=== PATIENT | female | born 1935 | race Two or more races ===

== ENCOUNTER 2024-06-07 16:51 | Inpatient (IN) | payer MEDICARE, OTHER ==
[~2024-06-07] VITALS: Ht 149.9 cm; Wt 52.3 kg
[2024-06-07 17:02] VITALS: PULSE 80; RESP 22; O2SAT 91
[2024-06-07] MEDS: AZITHROMYCIN 250 MG TAB PO ONE ×2 (17:03→20:00)
[2024-06-07] MEDS: methylPREDNISolone SOD SUCC 125 MG/2 ML VL IV ONE (17:10)
--- NOTE | 2024-06-07 17:29 | ED.PDOC ---
SOB-HPI HPI Comments 89Y F with PMHx dementia presents to ED via EMS for chief complaint SOB and cough. Pt denies chest pain, n/v/d, and fever. Per daughter, SpO2 at home was 74% on RA. 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 Per daughter, pt had a CT done recently that showed scar tissue on bilateral lungs and a mass is one lung. 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 Family History Family History: Unknown Social History Smoker: Non-Smoker Alcohol: Denies ETOH Use Drugs: Denies Drug Use Lives In: Home Constitutional: denies: chills, diaphoresis, fatigue, fever, malaise, sweats, weakness, others EENTM: denies: blurred vision, double vision, ear bleeding, ear discharge, ear drainage, ear pain, ear ringing, eye pain, eye redness, hearing loss, mouth pain, mouth swelling, nasal discharge, nose bleeding, nose congestion, nose pain, photophobia, tearing, throat pain, throat swelling, voice changes, others Respiratory: reports: cough, shortness of breath; denies: hemoptysis, orthopnea, SOB at rest, SOB with excertion, stridor, wheezing, others Cardiovascular: denies: chest pain, dizzy spells, diaphoresis, Dyspnea on exertion, edema, irregular heart beat, left arm pain, lightheadedness, palp itations, PND, syncope, others Gastrointestinal: denies: abdomen distended, abdominal pain, blood streaked bowels, constipated, diarrhea, dysphagia, difficulty swallowing, hematemesis, melena, nausea, poor appetite, poor fluid intake, rectal bleeding, rectal pain, vomiting, others Genitourinary: denies: abnormal vagina bleeding, burning, dyspareunia, dysuria, flank pain, frequency, hematuria, incontinence, pain, , vagina discharge, urgency, others Neurological: denies: dizziness, fainting, headache, left sided numbness, left sided weakness, numbness, paresthesia, pre-existing deficit, right sided numbness, right sided weakness, seizure, speech problems, tingling, tremors, weakness, others Musculoskeletal: denies: back pain, gout, joint pain, joint swelling, muscle pain, muscle stiffness, neck pain, others Integumetry: denies: bruises, change in color, change in hair/nails, dryness, laceration, lesions, lumps, rash, wounds, others Allergic/Immunocompromised: denies: Difficulty Healing, Frequent Infections, Hives, Itching, others Hematologic/Lymphatic: denies: anemia, blood clots, easy bleeding, easy br uising, swollen glands, others Endocrine: denies: excessive hunger, excessive sweating, excessive thirst, excessive urination, flushing, intolerance to cold, intolerance to heat, unexplained weight gain, unexplained weight loss, others Psychiatric: denies: anxiety, bipolar disorder, depression, hopeless, panic disorder, schizophrenia, sleepless, suicidal, others All Other Systems: Reviewed and Negative Physical Exam General Appearance: Moderate Distress HEENT: Normal ENT Inspection, Pharynx Normal, TMs Normal Neck: Full Range of Motion, Non-Tender, Normal, Normal Inspection Respiratory: Chest Non-Tender, Lungs Clear, Wheezing, Other (course breath sounds bilaterally) Cardiovascular: Tachycardia Breast Exam: Deferred Gastrointestinal: No Organomegaly, Non Tender, No Pulsatile Mass, Normal Bowel Sounds, Soft Genitalia: Deferred Pelvic: Deferred Rectal: Deferred Extremities: No calf tenderness, Normal capillary refill, Normal inspection, Normal range of motion, Non-tender, No pedal edema Musculoskeletal : Apperance: Normal Neurologic: Alert, datapower developer II-XII nml as Tested, No Motor Deficits, Normal Affect, Normal Mood, No Sensory Deficits Cerebellar Function: NOT DONE Reflexes: NOT DONE Skin: Dry, Normal Color, Warm Lymphatic: No Adenopathy Was a procedure done? Was a procedure done?: No Differential Dx Differential Diagnosis: Bronchitis, Pneumonia X-Ray, Labs, Meds, VS Vital Signs Date Time Temp Pulse Resp B/P (MAP) Pulse Ox O2 Delivery O2 Flow Rate FiO2 06/07/24 18:00 139 30 116/80 (92) 91 06/07/24 17:45 97.9 126 28 96/48 (64) 95 06/07/24 17:32 28 88 Simple Mask* 8 60 06/07/24 17:32 88 Simple Mask* 8 60 06/07/24 17:02 80 22 91 Simple Mask* 10 99 06/07/24 17:02 80 22 108/82 (91) 06/07/24 16:51 138 Lab Test 06/07/24 20:55 06/07/24 18:25 06/07/24 17:46 Range/Units Lactic Acid Level 6.0 *H 0.4-2.0 mmol/L Troponin I High Sensitivity 12 10 </=34 ng/L White Blood Count 14.4 H 4.4-10.8 10^3/uL Red Blood Count 3.83 L 4.0-5.20 10^6/uL Hemoglobin 10.6 L 12.2-16.2 g/dL Hematocrit 35.0 L 36.0-46.0 % Mean Corpuscular Volume 91.4 80.0-100.0 fL Mean Corpuscular Hemoglobin 27.5 L 28.0-32.0 pg Mean Corpuscular Hemoglobin Concent 30.2 L 32.0-36.0 g/dL Red Cell Distribution Width 17.2 H 11.8-14.3 % Platelet Count 559 H 140-450 10^3/uL Mean Platelet Volume 8.1 6.9-10.8 fL Neutrophils (%) (Auto) 37.0-80.0 % Lymphocytes (%) (Auto) 10.0-50.0 % Monocytes (%) (Auto) 0.0-12.0 % Basophils (%) (Auto) 0.0-2.0 % Neutrophils # (Auto) 1.6-8.6 10 ^3/uL Lymphocytes # (Auto) 0.4-5.4 10 ^3/uL Monocytes # (Auto) 0-1.3 10 ^3/uL Differential Total Cells Counted 100.0 100 Neutrophils % (Manual) 82 H 37.0-80.0 Band Neutrophils % (Manual) 11 Lymphocytes % (Manual) 3 L 10.0-50.0 Monocytes % (Manual) 4 0-12 Eosinophils % (Manual) 0 0-7 Basophils % (Manual) 0 0.0-2.0 Metamyelocytes % (manual) 0 Myelocytes % (Manual) 0 Promyelocytes % (Manual) 0 Blast Cells % (Manual) 0 Reactive Lymphocytes 0 Platelet Estimate Increased Sodium Level 131 L 136-145 mmol/L Potassium Level 4.7 3.5-5.1 mmol/L Chloride Level 102 98-107 mmol/L Carbon Dioxide Level 14 L 20-31 mmol/L Anion Gap 15 5-15 Blood Urea Nitrogen 27 H 9-23 mg/dL Creatinine 0.93 0.550-1.02 mg/dL Glomerular Filtration Rate Calc 59 >90 mL/min BUN/Creatinine Ratio 29.0 H 10.0-20.0 Serum Glucose 182 H 74-106 mg/dL Calcium Level 9.1 8.7-10.4 mg/dL B-Type Natriuretic Peptide 263.34 0-100 pg/mL SARS-CoV-2 Antigen (Rapid) Negative NEGATIVE Current Medications Medications (Trade) Dose Ordered Sig/Ben Route Start Time Stop Time Status Last Admin Azithromycin (Zithromax Tablet) 500 mg ONCE ONCE PO 06/07/24 17:00 06/07/24 17:34 DC 06/07/24 17:03 Albuterol (Ventolin Medneb) 5 mg ONCE ONCE NEB 06/07/24 17:00 06/07/24 17:01 DC 06/07/24 17:31 Ipratropium [place] (Atrovent Medneb) 0.5 mg ONCE ONCE NEB 06/07/24 17:00 06/07/24 17:01 DC 06/07/24 17:31 Methylprednisolone Sodium Succinate (Solu Medrol) 62.5 mg ONCE ONCE IV 06/07/24 17:00 06/07/24 17:01 DC 06/07/24 17:10 Azithromycin 250 ml @ 125 mls/hr ONCE ONCE IV 06/07/24 17:45 06/07/24 19:44 DC 06/07/24 18:16 Haloperidol Lactate (Haldol) 10 mg ONCE ONCE IM 06/07/24 20:15 06/07/24 20:16 MD 06/07/24 20:[address] [address] Ph: [phone] DIAGNOSTIC IMAGING Diagnostic Imaging Report : [id number] Signed PATIENT: NADJA MARRERO ACCT: [id number] UNIT: [id number] : 1935 LOC: ER ROOM / BED: / AGE / SEX: 89 / F ADM STATUS: REG ER SERVICE 1715 ORDERING PHYSICIAN: ARTI PEÑA MD PROCEDURE(s): CXRP - CHEST PORTABLE REASON: SOB ORDER NUMBER(s): [id number], ACCESSION NUMBER(s): [id number] CHEST RADIOGRAPH Indication: SOB Technique: Single frontal view of the chest was obtained Comparison: None FINDINGS: Lines and Tubes: None Lungs: Diffuse interstitial and alveolar type opacities bilateral lungs. Obscuration of the left hemidiaphragm. No pneumothorax. Cardiomediastinal contours: Unremarkable Bones: No acute osseous abnormality. IMPRESSION: Diffuse interstitial and alveolar type opacities of bilateral lungs which may r epresent multifocal pneumonia possible small left-sided pleural effusion and associated atelectasis. ATED BY: JANE ORTIZ DO DICTATED DATE/TIME: 06/07/241800 SIGNED BY: JANE ORTIZ DO SIGNED DATE/TIME: 06/07/241800 CC: Time of 1ST Reevaluation: 17:42 Reevaluation 1ST: Unchanged Patient Education/Counseling: Diagnosis, Treatment Family Education/Counseling: Diagnosis, Treatment Departure 1 Departure Time of Disposition: 22:20 (Patient with concern for sepsis. Receiving fluids, antibiotics, and will admit for further workup) Impression: Primary Impression: Sepsis Qualified Codes: A41.9 - Sepsis, unspecified organism; R65.21 - Severe sepsis with septic shock; J96.01 - Acute respiratory failure with hypoxia Additional Impressions: Shortness of breath Weakness Disposition: ADMITTED INPATIENT Admit to: Med Surg Condition: Serious Critical Care Note Critical Care Time?: Yes Critical care comment: Concern for sepsis Authorized and Performed by: Arti Peña MD Total critical care time: Approximately 44 minutes Due to a high probability of clinically significant, life threatening deterioration, the patient required my highest level of preparedness to intervene emergently and I personally spent this critical care time directly and personally managing the patient. This critical care time included obtaining a history; examining the patient; pulse oximetry; ordering and review of studies; arranging urgent treatment with development of a management plan; evaluation of patient's response to treatment; frequent reassessment; and, discussions with other providers. This critical care time was performed to assess and manage the high probability of imminent, life-threatening deterioration that could result in multi-organ failure. It was exclusive of separately billable procedures and treating other patients and teaching time. Please see my other sections and the rest of the note for further information on patient assessment and treatment. Stability Stability form required: No Heart Score Heart Score: Heart Score Response (Comments) Value History N/A 0 EKG N/A 0 Age N/A 0 Risk Factors N/A 0 Troponin N/A 0 Total 0 I personally scribed for ARTI PEÑA MD ([facility]) on 06/07/24 at 17:29. Electronically submitted by Savannah Contreras ([email or web address]). I personally scribed for ARTI PEÑA MD ([email or web address]) on 06/07/24 at 19:29. Electronically submitted by Savannah Contreras ([email or web address]). ARTI PEÑA MD Jun 07, 2024 17:29
[2024-06-07] MEDS: IPRATROPIUM BROM 0.5 MG/2.5ML INH SOL NEB ONE ×2 (17:31→22:53)
[2024-06-07] MEDS: ALBUTEROL SULF 2.5 MG/0.5ML(0.5%) NEB SOLN NEB ONE ×2 (17:31→22:53)
--- NOTE | 2024-06-07 18:03 | DVH ---
CHEST RADIOGRAPH Indication: SOB Technique: Single frontal view of the chest was obtained Comparison: None FINDINGS: Lines and Tubes: None Lungs: Diffuse interstitial and alveolar type opacities bilateral lungs. Obscuration of the left hem idiaphragm. No pneumothorax. Cardiomediastinal contours: Unremarkable Bones: No acute osseous abnormality. IMPRESSION: Diffuse interstitial and alveolar type opacities of bilateral lungs which may represent multifocal pn eumonia possible small left-sided pleural effusion and associated atelectasis.
[2024-06-07] MEDS: AZITHROMYCIN 500MG/ 250ML 250 ML IV ONE (18:16)
[2024-06-07 18:31] LABS: COVID19 ANTIGEN SOFIA FIA NEGATIVE (NEGATIVE)
[2024-06-07 19:07] LABS: Hemoglobin 10.6 g/dL (12.2-16.2)
[2024-06-07 19:09] LABS: Mean Corpuscular Hemoglobin 27.5 pg (28.0-32.0); Mean Corpuscular Hgb Conc. 30.2 g/dL (32.0-36.0); Mean Corpuscular Volume 91.4 fL (80.0-100.0); Platelet Count (auto) 559 10^3/uL (140-450); Red Blood Cells 3.83 10^6/uL (4.0-5.20); Red Cell Distribution Width 17.2 % (11.8-14.3); White Blood Cell 14.4 10^3/uL (4.4-10.8)
[2024-06-07 19:13] LABS: Anion Gap 15 (5-15); Basophils % (manual) 0 (0.0-2.0); Blast Cells 0; Chloride 102 mmol/L (98-107); Eosinophils % (manual) 0 (0-7); Metamyelocytes % 0; Myelocytes % 0; Potassium 4.7 mmol/L (3.5-5.1); Promyelocytes % 0; Reactive Lymphocytes 0
[2024-06-07 19:14] LABS: Calcium 9.1 mg/dL (8.7-10.4); Carbon Dioxide 14 mmol/L (20-31); Sodium 131 mmol/L (136-145)
--- NOTE | 2024-06-07 19:15 | ECG ---
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 Low voltage, extremity and precordial leads Minimal ST depression, inferior leads Nonspecific T abnormalities, diffuse leads Artifact in lead(s) I,II,III,aVR,aVL,aVF,V1,V2,V3,V4,V5,V6 Electronically Signed On 06-08-2024 14:16:20 PST by Chadwick Marcus Please click the below link to view image of tracing.
[2024-06-07 19:22] LABS: Blood Urea Nitrogen 27 mg/dL (9-23); Glucose 182 mg/dL (74-106)
[2024-06-07 19:30] VITALS: O2SAT 92
[2024-06-07 19:50] VITALS: O2SAT 92
[2024-06-07] MEDS: CEFEPIME 2GM/50ML NS 50 ML IV ONE (20:00)
[2024-06-07] MEDS: VANCOMYCIN 1GM/250ML KIT 200 ML IV ONE (20:00)
[2024-06-07] MEDS: HALOPERIDOL LACTATE 5 MG/ML INJ VIAL ONE (20:09)
[2024-06-07 20:21] LABS: Band Neutrophils % (manual) 11; Lymphocytes % (manual) 3 (10.0-50.0); Monocytes % (manual) 4 (0-12)
[2024-06-07 20:22] LABS: Platelet Estimate Increased
[2024-06-07] MEDS: HALOPERIDOL LACTATE 5 MG/ML INJ VIAL IM ONE (20:42)
[2024-06-07] MEDS ORDERED: HYDROcodone-ACET 5/325MG TAB PO PRN (23:15)
[2024-06-07] MEDS ORDERED: VANCOMYCIN PER PHARMACY 0 MG IV SCH (23:15)
[2024-06-07] MEDS ORDERED: DOCUSATE SOD 100 MG CAP PO PRN (23:15)
[2024-06-07] MEDS ORDERED: ONDANSETRON HCL 4 MG/2 ML VIAL IV PRN (23:15)
[2024-06-07] MEDS: DOXYCYCLINE 100MG/250ML 250 ML IV SCH (23:15)
[2024-06-07] MEDS ORDERED: MORPHINE SULFATE INJ 2 MG/ml SYRG IV PRN (23:15)
[2024-06-07] MEDS ORDERED: ACETAMINOPHEN 325 MG TAB PO PRN (23:15)
[2024-06-07] MEDS: SODIUM CHLORIDE 0.9% 1,000 ML IV SCH (23:15)
[2024-06-07] MEDS ORDERED: NITROGLYCERIN 0.4 MG SL TAB SL PRN (23:15)
--- NOTE | 2024-06-07 23:22 | DVHHP2 ---
History of Present Illness Reason for Visit: Sepsis, unspecified organism History of Present Illness The patient is a 89-year-old female with past medical history of dementia who presented to [facility] ED with complaint of shortness of breaths. As reported by daughter, patient's symptoms progressively get worse with cough, shortness of breaths at rest, on exertion, hypoxia, O2 saturation at 74% on room air, generalized weakness, getting worse that prompted this visit. Patient is being followed by neurologist and pulmonary at [place]. Patient was seen and evaluated in the ED, laboratory data shows WBC 14.4, hemoglobin 10.6, hematocrit 35.0, platelets 559, sodium 131, potassium 4.7, BUN 27, creatinine 0.93, GFR 59, glucose 182, hemoglobin A1c 5.4, troponin 10, lactic acid 6.0 trending down to 4.0, BNP 263.34, blood pressure 89/54 trending up to 107/64, heart rate 106, temperature 97.9 F, O2 saturation 91% on simple mask. Chest x-ray revealing diffuse interstitial and alveolar type opacities of bilateral lungs which may represent multifocal pneumonia possible small left sided pleural effusion and associated atelectasis. Patient was started on IV antibiotic regimen doxycycline, given breathing treatment, please see medication orders section in the computer. On my assessment, patient remains with, no diaphoresis, no ute rrhea, no nausea, no vomiting, no fever, no chills. Patient was admitted for further evaluation and medical management. Past Medical History Dementia Past Surgical History No surgical history on file Family History Reviewed, noncontributory to the management of this case. Past Social History The patient lives at home, denies smoking, alcohol or illicit drugs abuse. Review of Systems Constitutional: Yes: Weakness; No: Fever, Chills, Sweats, Malaise, Other Eyes: No: Pain, Vision change, Conjunctivae inflammation, Eyelid inflammation, Other, Redness ENT: No: Ear pain, Ear discharge, Nose pain, Nose discharge, Nose congestion, Mouth pain, Mouth swelling, Throat pain, Throat swelling, Other Respiratory: Cough, Shortness of breath, SOB with excertion, Other (SOB at rest); No: Dry, Wheezing, Hemoptysis, Pleuritic Pain, Sputum, Wheezing Cardiovascular: No: Chest Pain, Palpitations, Orthopnea, Paroxysmal Noc. Dyspnea, Edema, Lt Headedness, Other Gastrointestinal: No: Nausea, Vomiting, Abdominal Pain, Diarrhea, Constipation, Melena, Hematochezia, Other Genitourinary: No Dysuria, No Frequency, No Incontinence, No Hematuria, No Retention, No Other Musculoskeletal: No: other, neck pain, shoulder pain, arm pain, back pain, hand pain, leg pain, foot pain Skin: No: Rash, Lesions, Jaundice, Bruising, Other Neurological: No: Weakness, Numbness, Incoordination, Change in speech, Confusion, Seizures, Other Allergies: Coded Allergies: UNOBTAINABLE (Unverified , 06/07/24) Exam Vital Signs Vital Signs Date Time Temp Pulse Resp B/P (MAP) Pulse Ox O2 Delivery O2 Flow Rate FiO2 06/07/24 22:00 106 27 98/56 (70) 94 06/07/24 17:45 97.9 06/07/24 17:32 Simple Mask* 8 60 General Appearance: Alert, Cooperative, No acute distress, Other (Oriented x2) HEENT: Atraumatic, PERRLA, EOMI, Mucous membr. moist/pink Respiratory: Normal air movement, Other (Diminished breath sounds) Cardiovascular: Regular rate, Normal S1, Normal S2, No murmurs Abdominal: Normal bowel sounds, Soft, No tenderness, No hepatospenomegaly, No masses Extremities: No clubbing, No cyanosis, No edema, Normal pulses, No tenderness/swelling Skin: No rashes, No breakdown, No significant lesion Neuro: Normal speech, Normal tone, Sensation intact, Cranial nerves 3-12 NL, Reflexes 2+, Other (Generalized weakness) Psych/Mental Status: Mental status NL, Mood NL Labs/Xrays Labs Test 06/07/24 22:50 06/07/24 18:25 06/07/24 17:46 Range/Units White Blood Count 14.4 H 4.4-10.8 10^3/uL Red Blood Count 3.83 L 4.0-5.20 10^6/uL Hemoglobin 10.6 L 12.2-16.2 g/dL Hematocrit 35.0 L 36.0-46.0 % Mean Corpuscular Volume 91.4 80.0-100.0 fL Mean Corpuscular Hemoglobin 27.5 L 28.0-32.0 pg Mean Corpuscular Hemoglobin Concent 30.2 L 32.0-36.0 g/dL Red Cell Distribution Width 17.2 H 11.8-14.3 % Platelet Count 559 H 140-450 10^3/uL Mean Platelet Volume 8.1 6.9-10.8 fL Neutrophils (%) (Auto) 37.0-80.0 % Lymphocytes (%) (Auto) 10.0-50.0 % Monocytes (%) (Auto) 0.0-12.0 % Basophils (%) (Auto) 0.0-2.0 % Neutrophils # (Auto) 1.6-8.6 10 ^3/uL Lymphocytes # (Auto) 0.4-5.4 10 ^3/uL Monocytes # (Auto) 0-1.3 10 ^3/uL Differential Total Cells Counted 100.0 100 Neutrophils % (Manual) 82 H 37.0-80.0 Band Neutrophils % (Manual) 11 Lymphocytes % (Manual) 3 L 10.0-50.0 Monocytes % (Manual) 4 0-12 Eosinophils % (Manual) 0 0-7 Basophils % (Manual) 0 0.0-2.0 Metamyelocytes % (manual) 0 Myelocytes % (Manual) 0 Promyelocytes % (Manual) 0 Blast Cells % (Manual) 0 Reactive Lymphocytes 0 Platelet Estimate Increased Sodium Level 131 L 136-145 mmol/L Potassium Level 4.7 3.5-5.1 mmol/L Chloride Level 102 98-107 mmol/L Carbon Dioxide Level 14 L 20-31 mmol/L Anion Gap 15 5-15 Blood Urea Nitrogen 27 H 9-23 mg/dL Creatinine 0.93 0.550-1.02 mg/dL Glomerular Filtration Rate Calc 59 >90 mL/min BUN/Creatinine Ratio 29.0 H 10.0-20.0 Serum Glucose 182 H 74-106 mg/dL Calcium Level 9.1 8.7-10.4 mg/dL B-Type Natriuretic Peptide 263.34 0-100 pg/mL SARS-CoV-2 Antigen (Rapid) Negative NEGATIVE PATIENT: NADJA MARRERO ACCT: [id number] UNIT: [id number] : 1935 LOC: ER ROOM / BED: / AGE / SEX: 89 / F ADM STATUS: REG ER SERVICE 6650 ORDERING PHYSICIAN: ARTI HANNA MD PROCEDURE(s): CXRP - CHEST PORTABLE REASON: SOB ORDER NUMBER(s): [id number], ACCESSION NUMBER(s): [id number] CHEST RADIOGRAPH Indication: SOB Technique: Single frontal view of the chest was obtained Comparison: None FINDINGS: Lines and Tubes: None Lungs: Diffuse interstitial and alveolar type opacities bilateral lungs. Obscuration of the left hemidiaphragm. No pneumothorax. Cardiomediastinal contours: Unremarkable Bones: No acute osseous abnormality. IMPRESSION: Diffuse interstitial and alveolar type opacities of bilateral lungs which may represent multifocal pneumonia possible small left-sided pleural effusion and associated atelectasis. Assessment/Plan Assessment/Plan Pneumonia, unspecified organism Sepsis, unspecified organism Severe sepsis with septic shock Generalized weakness Acute respiratory failure with hypoxia Plan 1. Admit to telemetry unit 2. Breathing treatment 3. Pain control management 4. IV antibiotic management 5. Management of fluids and electrolytes 6. Consultation for pulmonology 7. Diagnostic test chest x-ray 8. DVT prophylaxis-on SCDs 9. Repeat labs CBC, CMP in a.m. 10. Continue with current medical management 11. Treatment plan discussed with patient and RN. Patient verbalized understanding. Plan discussed with: Patient, Other (RN) My Orders Orders - YOMI SPAULDING DNP Procedure Category Date Status Time Famotidine Injection PHA 06/08/24 Verified (Pepcid Injection) 10:00 Methylprednisolone PHA 06/08/24 Verified Sod Succ (Solu Medrol 06:00 Albuterol Medneb PHA 06/07/24 Verified (Ventolin Medneb) 23:15 Ipratropium Medneb PHA 06/07/24 Verified (Atrovent Medneb) 23:15 Vancomycin Per PHA 06/07/24 Verified Pharmacy 23:15 Doxycycline PHA 06/07/24 Verified 100mg/250ml 23:15 Hemoglobin A1c LAB 06/07/24 Verified 23:15 *Consult CONS 06/07/24 Verified / 23:15 Type And Screen BBK 06/07/24 Verified 23:15 Admit ADMIT 06/07/24 Verified 23:15 Allergies FRANKY 06/07/24 Verified 23:15 Code Status CODE 06/07/24 Verified 23:15 0.9% Ns 1000 Ml PHA 06/07/24 Verified 23:15 Oxygen Per Hour RT 06/07/24 Verified 23:15 Hydrocodone-Acet PHA 06/07/24 Verified 5/325mg Tab ([place] 23:15 Ondansetron Hcl PHA 06/07/24 Verified (Zofran) 23:15 Docusate Sodium PHA 06/07/24 Verified Capsule (Colace 23:15 Fall Risk Precautions [facility] 06/07/[address] 23:15 Complete Blood Count LAB 06/08/24 Verified 04:00 Comprehensive LAB 06/08/24 Verified Metabolic Panel 04:00 Cardiac DIET 06/08/24 Verified Diet-2gna,Lofat,Lochol Breakfast Echo 2d Mode Cardiac US 06/07/24 Verified DOP 23:15 Condition: Serious FRANKY 06/07/24 Verified 23:15 Acetaminophen Tablet PHA 06/07/24 Verified (Tylenol Tablet) 23:15 Sequential [facility] 06/07/24 Verified Compression Device Nitroglycerin [facility] 06/07/24 Verified Sublingual (Ntrostat 23:15 Morphine Sulfate PHA 06/07/24 Verified Injection 23:15 Notify Md Of Changes [facility] 06/07/24 Verified From Base 23:15 Problem List: (1) Pneumonia, unspecified organism (2) Sepsis, unspecified organism (3) Acute respiratory failure with hypoxia (4) Generalized weakness (5) Severe sepsis with septic shock Date of Service: Jun 07, 2024 Billing Provider: YOMI SPUALDING DNP Common Visit Codes: 58236-YAARTVT INP/OBS CARE (HIGH) YOMI SPAULDING DNP Jun 07, 2024 23:22
[2024-06-08] VITALS (11 sets, daily range): BP systolic 91–107; BP diastolic 50–64; PULSE 79–136; RESP 20–24; O2SAT 88–100
[2024-06-08] MEDS: NOREPINEPHRINE 8 MG/250ML KIT 250 ML IV SCH (01:28)
[2024-06-08] MEDS: SODIUM CHLORIDE 0.9% 2,000 ML IV ONE (03:53)
[2024-06-08 04:37] LABS: Urine Bacteria FEW /hpf (None Seen); Urine Blood 2+ /uL (Negative); Urine Budding Yeast OCCASIONAL /hpf (None Seen); Urine Clarity Clear (Clear); Urine Hyaline Cast FEW /lpf (0 - 2); Urine Mucus FEW (None Seen); Urine Protein, UAD Negative (Negative); Urine Specific Gravity 1.005 (1.001-1.035); Urine Squamous Epithelial Cell FEW /hpf (<5); Urine Urobilinogen Normal (Negative); Urine WBC 3 /hpf (0 - 5); Urine pH 5.5 (5.0-9.0)
[2024-06-08 05:09] LABS: Urine Color STRAW (Yellow)
[2024-06-08] MEDS: methylPREDNISolone SOD SUCC 40 MG/ML VL IV SCH (05:59)
[2024-06-08] MEDS: ALBUTEROL SULF 2.5 MG/0.5ML(0.5%) NEB SOLN NEB PRN (07:13)
[2024-06-08] MEDS: IPRATROPIUM BROM 0.5 MG/2.5ML INH SOL NEB PRN (07:13)
[2024-06-08 07:25] LABS: Alanine Aminotransferase 10 U/L (7-40); Alkaline Phosphatase 101 U/L (46-116); Anion Gap 9 (5-15); Aspartate Aminotransferase 20 U/L (13-40); BUN/Creatinine Ratio 21.3 (10.0-20.0); Blood Urea Nitrogen 16 mg/dL (9-23); Potassium 3.6 mmol/L (3.5-5.1); Sodium 138 mmol/L (136-145)
[2024-06-08 07:29] LABS: Hematocrit 32.4 % (36.0-46.0); Hemoglobin 9.9 g/dL (12.2-16.2); Mean Corpuscular Hgb Conc. 30.5 g/dL (32.0-36.0); Mean Corpuscular Volume 88.6 fL (80.0-100.0); Platelet Count (auto) 516 10^3/uL (140-450); Red Blood Cells 3.66 10^6/uL (4.0-5.20); Red Cell Distribution Width 17.2 % (11.8-14.3)
[2024-06-08 07:31] LABS: Basophils % (manual) 0 (0.0-2.0); Blast Cells 0; Eosinophils % (manual) 0 (0-7); Metamyelocytes % 0; Myelocytes % 0; Promyelocytes % 0; Reactive Lymphocytes 0
[2024-06-08 07:35] LABS: Bilirubin, Total 0.3 mg/dL (0.2-1.0); Calcium 8.7 mg/dL (8.7-10.4); Carbon Dioxide 17 mmol/L (20-31); Chloride 112 mmol/L (98-107); Glucose 177 mg/dL (74-106); Total Protein 5.6 g/dL (5.7-8.2)
[2024-06-08 07:36] LABS: Albumin 2.4 g/dL (3.2-4.8)
[2024-06-08 08:52] LABS: Base Excess -5.1 mmol/L (-2.0-3.0)
[2024-06-08 08:57] LABS: Band Neutrophils % (manual) 2; Lymphocytes % (manual) 12 (10.0-50.0); Monocytes % (manual) 1 (0-12); Platelet Estimate Increased
--- NOTE | 2024-06-08 10:06 | DVHINCON2 ---
Date of service: Jun 07, 2024 Referring Physician ANN Rocha Reason for Consultation Dyspnea History of Present Illness 89-year-old woman history of dementia who presented with a chief complaint of shortness of breath and cough. No nausea, vomiting, diarrhea constipation. No fever or chills. She was found to be hypoxic with a pulse oximetry reading of 74%. Patient follows up with Neurology and pulmonology intolerance. She was seen had a CT chest performed that demonstrated scar tissue in bilateral lungs and AMS in one lung. Pulmonary consultation is called for evaluation of shortness of breath. Review of systems: 14 point review of systems is negative unless otherwise noted above. Past medical history: Dementia, lung mass, lung scarring Past surgical history: None mentioned in prior surgeries. Medications: Reviewed Allergies: Unobtainable. Family history: No family history of premature CAD. No family history of lung disease. Social history: Nonsmoker. No alcohol or illicit drug use. He lives at home. Allergies: Coded Allergies: UNOBTAINABLE (Unverified , 06/07/24) Current Medications Current Medications Medications (Trade) Dose Ordered Sig/Ben Route PRN Reason Start Time Stop Time Status Last Admin Famotidine (Pepcid Injection) 20 mg Q12HR IV 06/08/24 10:00 Methylprednisolone Sodium Succinate (Solu Medrol) 40 mg Q8HR IV 06/08/24 06:00 06/08/24 05:59 Albuterol (Ventolin Medneb) 2.5 mg Q4HPRN PRN NEB SHORTNESS OF BREATH 06/07/24 23:15 06/08/24 07:13 Ipratropium [place] (Atrovent Medneb) 0.5 mg Q4HPRN PRN NEB SHORTNESS OF BREATH 06/07/24 23:15 06/08/24 07:13 Vancomycin HCl 0 ml @ 0 mls/hr UD IV 06/07/24 23:15 Doxycycline Hyclate 250 ml @ 125 mls/hr Q12H IV 06/07/24 23:15 06/07/24 23:15 Sodium Chloride 1,000 ml @ 120 mls/hr Q8H20M IV 06/07/24 23:15 06/08/24 07:43 Acetaminophen/ Hydrocodone Bitart ([place] 5/325MG Tab) 1 tab Q4HP PRN PO MODERATE PAIN (4-6 PAIN SCALE) 06/07/24 23:15 Ondansetron HCl (Zofran) 4 mg Q4HP PRN IV NAUSEA / VOMITING 06/07/24 23:15 Docusate Sodium (Colace Capsule) 100 mg BIDPRN PRN PO FOR CONSTIPATION 06/07/24 23:15 Acetaminophen (Tylenol Tablet) 650 mg Q6HP PRN PO PAIN SCALE 1-3 OR TEMP>100.4 06/07/24 23:15 Nitroglycerin (Ntrostat Sublingual) 0.4 mg Q5MINP PRN SL FOR CHEST PAIN 06/07/24 23:15 Morphine Sulfate 2 mg Q30M PRN IV FOR CHEST PAIN 06/07/24 23:15 Enoxaparin Sodium (Lovenox) 40 mg DAILY SC 06/08/24 10:00 Norepinephrine Bitartrate 250 ml @ 3.75 mls/hr Q24H IV 06/08/24 01:00 06/08/24 01:28 Vancomycin HCl 100 ml @ 200 mls/hr Q12H IV 06/08/24 10:00 Vital Signs Vital Signs Date Time Temp Pulse Resp B/P (MAP) Pulse Ox O2 Delivery O2 Flow Rate FiO2 06/08/24 09:30 112/69 06/08/24 09:30 101 23 06/08/24 09:15 98 06/08/24 08:44 45 06/08/24 07:41 Bi-Pap+ 06/07/24 22:53 12 06/07/24 17:45 97.9 Physical Exam Gen.: Patient lying in bed in no apparent distress. On supplemental oxygen. Head: Normocephalic, atraumatic Eyes: EOMI/PERRLA. Ears: Normal hearing. Normal anatomy. Neck/trachea: Trachea midline, supple. Nose: Normal external anatomy. Mouth: Moist mucous membranes. Chest: Decreased air entry bilaterally. No wheezing . Scattered rhonchi. Cardio vascular: Positive S1, positive S2. Regular rate and rhythm. Abdomen: Positive bowel sounds in all 4 quadrants. Soft, non-tender, non- distended. : Deferred. Rectal: Deferred Skin: Warm, dry. Extremities: 2+ radial pulses bilaterally. No lower extremity edema. Neuro: Awake, alert. No gross motor or sensory deficits. Cranial nerves II through XII intact. Gait not assessed. Labs/Diagnostic Data Labs Test 06/08/24 08:43 06/08/24 06:27 06/08/24 03:50 06/07/24 23:36 Range/Units Blood Gas Specimen Type Arterial Blood Gas Sample Site Left radial Blood Gas Patient Temperature 37.0 Arterial Blood Date Drawn [id number] Arterial Blood pH 7.441 7.350-7.450 Arterial Blood Partial Pressure CO2 26.9 L 32.0-45.0 mmHg Arterial Blood Partial Pressure O2 70.7 L 83.0-108.0 mmHg Arterial Blood HCO3 17.9 L 21.0-28.0 mmol/L Arterial Blood Oxygen Saturation 94.0 94.0-98.0 % Arterial Blood Base Excess -5.1 L -2.0-3.0 mmol/L Arterial Blood Oxyhemoglobin 93.3 L 94.0-98.0 % Arterial Blood Carboxyhemoglobin 0.2 L 0.5-1.5 % Arterial Blood Methemoglobin 0.5 0.0-1.5 % Robbin Test Yes Blood Gas Total Hemoglobin 10.30 L 12.0-16.0 g/dL Blood Gas Modality Mask - bipap FiO2 % 45.0 White Blood Count 16.0 H 4.4-10.8 10^3/uL Red Blood Count 3.66 L 4.0-5.20 10^6/uL Hemoglobin 9.9 L 12.2-16.2 g/dL Hematocrit 32.4 L 36.0-46.0 % Mean Corpuscular Volume 88.6 80.0-100.0 fL Mean Corpuscular Hemoglobin 27.0 L 28.0-32.0 pg Mean Corpuscular Hemoglobin Concent 30.5 L 32.0-36.0 g/dL Red Cell Distribution Width 17.2 H 11.8-14.3 % Platelet Count 516 H 140-450 10^3/uL Mean Platelet Volume 8.1 6.9-10.8 fL Neutrophils (%) (Auto) 37.0-80.0 % Lymphocytes (%) (Auto) 10.0-50.0 % Monocytes (%) (Auto) 0.0-12.0 % Basophils (%) (Auto) 0.0-2.0 % Neutrophils # (Auto) 1.6-8.6 10 ^3/uL Lymphocytes # (Auto) 0.4-5.4 10 ^3/uL Monocytes # (Auto) 0-1.3 10 ^3/uL Differential Total Cells Counted 100.0 100 Neutrophils % (Manual) 85 H 37.0-80.0 Band Neutrophils % (Manual) 2 Lymphocytes % (Manual) 12 10.0-50.0 Monocytes % (Manual) 1 0-12 Eosinophils % (Manual) 0 0-7 Basophils % (Manual) 0 0.0-2.0 Metamyelocytes % (manual) 0 Myelocytes % (Manual) 0 Promyelocytes % (Manual) 0 Blast Cells % (Manual) 0 Reactive Lymphocytes 0 Platelet Estimate Increased Sodium Level 138 # 136-145 mmol/L Potassium Level 3.6 3.5-5.1 mmol/L Chloride Level 112 #H 98-107 mmol/L Carbon Dioxide Level 17 L 20-31 mmol/L Anion Gap 9 5-15 Blood Urea Nitrogen 16 # 9-23 mg/dL Creatinine 0.75 0.550-1.02 mg/dL Glomerular Filtration Rate Calc 77 >90 mL/min BUN/Creatinine Ratio 21.3 H 10.0-20.0 Serum Glucose 177 H 74-106 mg/dL Calcium Level 8.7 8.7-10.4 mg/dL Total Bilirubin 0.3 0.2-1.0 mg/dL Aspartate Amino Transferase (AST) 20 13-40 U/L Alanine Aminotransferase (ALT) 10 7-40 U/L Alkaline Phosphatase 101 46-116 U/L Total Protein 5.6 L 5.7-8.2 g/dL Albumin 2.4 L 3.2-4.8 g/dL Urine Color Straw Yellow Urine Clarity Clear Clear Urine pH 5.5 5.0-9.0 Urine Specific [place] 1.005 1.001-1.035 Urine Protein Negative Negative Urine Ketones Negative Negative Urine Blood 2+ H Negative /uL Urine Nitrite Negative Negative Urine Bilirubin Negative Negative Urine Urobilinogen Normal Negative mg/dL Urine Leukocyte Esterase Negative Negative /uL Urine RBC 1 0 - 4 /hpf Urine WBC 3 0 - 5 /hpf Urine Squamous Epithelial Cells Few <5 /hpf Urine Bacteria Few H None Seen /hpf Urine Hyaline Casts Few 0 - 2 /lpf Urine Mucus Few None Seen Urine Yeast (Budding) Occasional None Seen /hpf Urine Glucose Normal Normal mg/dL Hemoglobin A1c 5.4 <5.7 % A1C Test 06/07/24 22:50 06/07/24 18:25 06/07/24 17:46 Range/Units Lactic Acid Level 4.0 *H 0.4-2.0 mmol/L Troponin I High Sensitivity 16 </=34 ng/L B-Type Natriuretic Peptide 263.34 0-100 pg/mL SARS-CoV-2 Antigen (Rapid) Negative NEGATIVE Assessment Impression: Acute hypoxic respiratory failure secondary to pneumonia Pneumonia likely Gram-negative Sepsis Pleural effusion Atelectasis Generalized weakness Anemia Lactic acidosis Metabolic acidosis Plan: Chest x-ray imaging report reviewed. Diffuse interstitial and alveolar type opacities bilaterally. Multifocal pneumonia. Small left pleural effusion, atelectasis. On simple mask Recommend to initiate noninvasive positive pressure ventilation. Titrate FiO2 to keep sats above 92%. Head of bed elevation Aspiration precautions IV steroids Continue antibiotics Follow up cultures. Start pressors if necessary to maintain mean arterial blood pressure greater than 65 mmHg. DVT prophylaxis with Lovenox GI prophylaxis with Pepcid Condition: Critical Prognosis: Poor given multiple comorbidities. Rest of plan per hospitalist and other consultants. A total of 36 minutes of critical care time was spent reviewing the patient record, examining the patient, making a diagnostic and therapeutic plan, discussing this plan with the medical personnel, following up on diagnostic studies and following the patient for clinical stability excluding any and all procedures. At least 50% of this time was spent in direct, [id number] contact. Thank you ANN Rocha for allowing me to participate in this patient's care. Further recommendations will depend on patient's clinical course. Please do not hesitate to contact me if you have any questions or concerns. This medical document was created using an electronic medical record system with [employer] dictation system. Although this document has been carefully reviewed, there may still be some phonetic and typographical errors. These areas are purely typographical due to imperfections of the software programs, and do not reflect any compromise in the patient's medical care. Plan discussed with: Other (S[employer]IM[employer]EDIATION CONSULTANT, RN) CHAU COHEN MD Jun 08, 2024 10:06
[2024-06-08] MEDS: ENOXAPARIN SOD 40 MG/0.4 ML SYRINGE SC SCH (11:02)
[2024-06-08] MEDS: FAMOTIDINE (10MG/ML) 2ML VL IV SCH (11:02)
--- NOTE | 2024-06-08 11:39 | DVH ---
CLINICAL INFORMATION: 89 years old, Female; interval changes. Indication 4 prior chest radiograph wa s shortness of breath. TECHNIQUE: Single AP portable chest radiograph was obtained. COMPARISON: XY CHEST PORTABLE on DOS: 06/07/24 FINDINGS: Bilateral multifocal airspace opacities again noted, may be slightly more dense in the right lower lo be compared to the prior exam. There is no pneumothorax. No other significant interval change. IMPRESSION: Bilateral multifocal airspace opacities, with slight increased density in the right lower lobe opacit y compared to the prior exam. No other significant interval change.
--- NOTE | 2024-06-08 11:47 | DVHPN2 ---
Subjective Patient with altered mental status. Unable to provide any information at this time Reviewed: Care Plan, H&P, Labs, Medications Changes from previous H/P or p: No Changes General: Per HPI Eyes: No Pain, No Vision change, No Conjunctivae inflammation, No Eyelid inflammation, No Other, No Redness ENT: No Ear pain, No Ear discharge, No Nose pain, No Nose discharge, No Nose congestion, No Mouth pain, No Mouth swelling, No Throat pain, No Throat swelling, No Other Cardiovascular: No Chest Pain, No Palpitations, No Orthopnea, No Paroxysmal Noc. Dyspnea, No Edema, No Lt Headedness, No Other Respiratory: Cough; No Dry; Shortness of breath, SOB with excertion; No Wheezing, No Hemoptysis, No Pleuritic Pain, No Sputum; Other (SOB at rest) Gastrointestinal: No Nausea, No Vomiting, No Abdominal Pain, No Diarrhea, No Constipation, No Melena, No Hematochezia, No Other Genitourinary: No Dysuria, No Frequency, No Incontinence, No Hematuria, No Retention, No Other Musculoskeletal: No other, No neck pain, No shoulder pain, No arm pain, No back pain, No hand pain, No leg pain, No foot pain Skin: No Rash, No Lesions, No Jaundice, No Bruising, No Other Objective Vitals Vital Signs Date Time Temp Pulse Resp B/P (MAP) Pulse Ox O2 Delivery O2 Flow Rate FiO2 06/08/24 11:25 110 20 112/72 (85) 89 06/08/24 08:44 45 06/08/24 07:41 Bi-Pap+ 06/07/24 22:53 12 06/07/24 17:45 97.9 Intake/Output Intake and Output 06/08/24 07:00 Intake Total 985.0 ml Balance 985.0 ml Intake IV Total 985.0 ml General Appearance: Alert, Cooperative, moderate distress HEENT: Atraumatic, PERRLA Lungs: Clear to auscultation, Normal air movement Cardiovascular: Normal S1, Normal S2 Abdomen: Normal bowel sounds, Soft Musculoskeletal: Normal sensory function, Normal motor function Psych/Mental Status: Mood NL (Anxious) Medications Current Medications Medications Dose Ordered Sig/Ben Route Start Time Stop Time Status Last Admin Dose Admin Famotidine 20 mg Q12HR IV 06/08/24 10:00 06/08/24 11:02 20 MG Methylprednisolone Sodium Succinate 40 mg Q8HR IV 06/08/24 06:00 06/08/24 05:59 40 MG Albuterol 2.5 mg Q4HPRN PRN NEB 06/07/24 23:15 06/08/24 07:13 2.5 MG Ipratropium [place] 0.5 mg Q4HPRN PRN NEB 06/07/24 23:15 06/08/24 07:13 0.5 MG Vancomycin HCl 0 ml @ 0 mls/hr UD IV 06/07/24 23:15 Sodium Chloride 1,000 ml @ 120 mls/hr Q8H20M IV 06/07/24 23:15 06/08/24 07:43 120 MLS/HR Acetaminophen/ Hydrocodone Bitart 1 tab Q4HP PRN PO 06/07/24 23:15 Ondansetron HCl 4 mg Q4HP PRN IV 06/07/24 23:15 Docusate Sodium 100 mg BIDPRN PRN PO 06/07/24 23:15 Acetaminophen 650 mg Q6HP PRN PO 06/07/24 23:15 Nitroglycerin 0.4 mg Q5MINP PRN SL 06/07/24 23:15 Morphine Sulfate 2 mg Q30M PRN IV 06/07/24 23:15 Enoxaparin Sodium 40 mg DAILY SC 06/08/24 10:00 06/08/24 11:02 40 MG Norepinephrine Bitartrate 250 ml @ 3.75 mls/hr Q24H IV 06/08/24 01:00 06/08/24 01:28 3.75 MLS/HR Vancomycin HCl 100 ml @ 200 mls/hr Q12H IV 06/08/24 10:00 Ceftriaxone Sodium 50 ml @ 100 mls/hr DAILY@09 IV 06/08/24 11:02 Azithromycin 250 ml @ 125 mls/hr DAILY IV 06/09/24 10:00 Laboratory Results Laboratory Tests 06/08/24 06:27 Chemistry Test 06/07/24 18:25 06/08/24 06:27 Calcium Level 9.1 mg/dL (8.7-10.4) 8.7 mg/dL (8.7-10.4) Albumin 2.4 g/dL (3.2-4.8) L Total Protein 5.6 g/dL (5.7-8.2) L Cardiac Markers Test 06/07/24 18:25 B-Type Natriuretic Peptide 263.34 pg/mL (0-100) LFT Test 06/08/24 06:27 Alanine Aminotransferase (ALT) 10 U/L (7-40) Alkaline Phosphatase 101 U/L (46-116) Aspartate Amino Transferase (AST) 20 U/L (13-40) Total Bilirubin 0.3 mg/dL (0.2-1.0) HgA1c, TSH Test 06/07/24 23:36 Hemoglobin A1c 5.4 % A1C (<5.7) Urinalysis Test 06/08/24 03:50 Urine Color Straw (Yellow) Urine Clarity Clear (Clear) Urine pH 5.5 (5.0-9.0) Urine Specific [place] 1.005 (1.001-1.035) Urine Protein Negative (Negative) Urine Ketones Negative (Negative) Urine Blood 2+ /uL (Negative) H Urine Nitrite Negative (Negative) Urine Bilirubin Negative (Negative) Urine Urobilinogen Normal mg/dL (Negative) Urine Leukocyte Esterase Negative /uL (Negative) Urine RBC 1 /hpf (0 - 4) Urine WBC 3 /hpf (0 - 5) Urine Squamous Epithelial Cells Few /hpf (<5) Urine Bacteria Few /hpf (None Seen) H Urine Hyaline Casts Few /lpf (0 - 2) Urine Mucus Few (None Seen) Urine Yeast (Budding) Occasional /hpf (None Urine Glucose Normal mg/dL (Normal) Blood Gas Results Test 06/08/24 08:43 Arterial Blood pH 7.441 (7.350-7.450) FiO2 % 45.0 Labs and/or images reviewed: Labs reviewed by me, Image(s) reviewed by me Assessment/Plan Assessment/Plan Impression: -acute hypoxic respiratory failure -sepsis -advanced dementia -history of lung mass, 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 Apparently, the patient has a lung mass, recently biopsied which was found to be benign per one of the daughters. Patient also has a history of tuberculosis as a child, with residual lung scarring. Patient was not wear oxygen at home. Acute symptoms include shortness of breath and acute confusion. Plan of care discussed with the family. She will be made a chemical code with noninvasive positive pressure ventilation modalities. No compressions or intubation at this time. -broaden antibiotic therapy -continue IV steroids -bronchodilators -oneal cultures -BiPAP p.r.n. -CT scan once patient was more stable -continue IV hydration -repeat labs in a.m. Critical care time spent with patient discussing and formulating plan of care: 90 minutes. This does not include time spent performing procedures. Plan discussed with: Patient, Daughter, Other (RN) My Orders Orders - ED BRADLEY NP Procedure Category Date Status Time Urine Bacterial SHAYY 06/08/24 In Process Culture 10:18 Kub Abdomen Single XY 06/08/24 Taken View 10:18 Azithromycin 500mg/ PHA 06/09/24 In Process 250ml (Zithromax 50 10:00 Ceftriaxone 1gm/50ml PHA 06/08/24 In Process D5w (Rocephin) 11:02 Date of Service: Jun 08, 2024 Billing Provider: ED BRADLEY NP Common Visit Codes: 76674-[id number] CARE 30-74 MIN, [id number] CARE-EACH +30MIN ED BRADLEY NP Jun 08, 2024 11:47
--- NOTE | 2024-06-08 12:14 | DVH ---
ABDOMINAL RADIOGRAPH Indication: Sepsis, gastric distention Technique: Single frontal view of the abdomen was obtained Comparison: None FINDINGS: Lines and tubes: There is a Schulz catheter overlying the pelvis. There is a nonobstructive bowel gas pattern. No supine radiographic evidence of pneumoperitoneum. Bon y structures unremarkable. IMPRESSION: 1. Nonobstructive bowel gas pattern.
[2024-06-08] MEDS: cefTRIAXone 1GM/50ML D5W 50 ML IV SCH (12:34)
[2024-06-08] MEDS: VANCOMYCIN 500mg/100mL 100 ML IV SCH ×2 (12:50→23:05)
[2024-06-08 14:05] LABS: INR 1.25 (0.9-1.15); Partial Thromboplastin Time 28.7 SEC (24.5-34.5)
--- NOTE | 2024-06-08 14:30 | DVHSR ---
APPROVED REPORT EXAM: LIMITED Two-dimensional and M-mode echocardiogram with Doppler and color Doppler. Blood Pressure: 107/62 mmHg INDICATION Elevated BNP RISK FACTORS Height: 5' 2", Weight: 121 DIMENSIONS LVDd3.1 (3.8-5.7cm)LA (2D)2.4 (1.9-4.0cm)Aortic Root2.3 (2.0-3.7cm) LVDs2.3 (2.5-4.0cm)LA (MM) (1.9-4.0cm)Aortic Cusp Exc1.3 (1.5-2.0cm) EF (%) 50.0 (55-70%)Rt. Atrium2.5 (1.9-4.0cm)Asc. Aorta cm IVSd0.7 (0.7-1.1cm)RV (D) (1.8-2.4cm) PWd0.9 (0.7-1.1cm) Mitral Valve MitralMitral Stenosis E wave0.70m/sMV Mean GR.mmHg A wave0.90m/sMV Peak GR.mmHg E/A ratio0.82D MVAcm2 Aortic Valve Aortic ValveAortic Stenosis V11.10m/Bettina Mean GR.4mmHg V21.30m/Bettina Peak GR.8mmHg LVOT Diameter1.8 (1.8-2.4cm)Doppler AVA2.15cm2 Tricuspid Valve TR Velocity2.80m/s [id number] Other Information Quality : Technically LimitedRhythm : Technically limited study due to body habitus. Conclusion Technically difficult study. Off axis views. Mild RV enlargement. Left atrial enlargement. Valves appear to be structurally normal. EF of 60%. Normal RV function. Mild TR. No pericardial effusion masses or vegetations.
[2024-06-08 14:41] LABS: Rapid Influenza A Negative (Negative); Rapid Influenza B Negative (Negative)
--- NOTE | 2024-06-08 20:28 | DVHPN2 ---
Progress Note - Dictate Date Seen: Jun 08, 2024 Medical Necessity Reason Pt with a Central, PICC or Fol: Yes The following are medically ne: Ribeiro Catheter Reason for ribeiro catheter: Strict I&O Subjective Patient seen and examined at bedside. Remains on supplemental oxygen Overnight events reviewed. vital signs Vital Sign Date Time Temp Pulse Resp B/P (MAP) Pulse Ox O2 Delivery O2 Flow Rate FiO2 06/08/24 19:00 110 18 104/85 (91) 94 06/08/24 15:30 97.5 97.5 06/08/24 13:59 Oxymizer 6 N/A Total Intake and Output 06/07/24 06/07/24 06/08/24 15:00 23:00 07:00 Intake Total 450 ml 535.0 ml Balance 450 ml 535.0 ml medications Current Medications Medications Dose Ordered Sig/Ben Route Start Time Stop Time Status Last Admin Dose Admin Famotidine 20 mg Q12HR IV 06/08/24 10:00 06/08/24 11:02 20 MG Methylprednisolone Sodium Succinate 40 mg Q8HR IV 06/08/24 06:00 06/08/24 14:10 40 MG Albuterol 2.5 mg Q4HPRN PRN NEB 06/07/24 23:15 06/08/24 13:56 2.5 MG Ipratropium [place] 0.5 mg Q4HPRN PRN NEB 06/07/24 23:15 06/08/24 13:55 0.5 MG Vancomycin HCl 0 ml @ 0 mls/hr UD IV 06/07/24 23:15 Sodium Chloride 1,000 ml @ 120 mls/hr Q8H20M IV 06/07/24 23:15 06/08/24 16:08 120 MLS/HR Acetaminophen/ Hydrocodone Bitart 1 tab Q4HP PRN PO 06/07/24 23:15 Ondansetron HCl 4 mg Q4HP PRN IV 06/07/24 23:15 Docusate Sodium 100 mg BIDPRN PRN PO 06/07/24 23:15 Acetaminophen 650 mg Q6HP PRN PO 06/07/24 23:15 Nitroglycerin 0.4 mg Q5MINP PRN SL 06/07/24 23:15 Morphine Sulfate 2 mg Q30M PRN IV 06/07/24 23:15 Enoxaparin Sodium 40 mg DAILY SC 06/08/24 10:00 06/08/24 11:02 40 MG Norepinephrine Bitartrate 250 ml @ 3.75 mls/hr Q24H IV 06/08/24 01:00 06/08/24 01:28 3.75 MLS/HR Vancomycin HCl 100 ml @ 200 mls/hr Q12H IV 06/08/24 10:00 06/08/24 12:50 200 MLS/HR Ceftriaxone Sodium 50 ml @ 100 mls/hr DAILY@09 IV 06/08/24 11:02 06/08/24 12:34 100 MLS/HR Azithromycin 250 ml @ 125 mls/hr DAILY IV 06/09/24 10:00 objective Gen.: Patient lying in bed in no apparent distress. On supplemental oxygen. Head: Normocephalic, atraumatic. Eyes: EOMI/PERRLA. Ears: Normal hearing. Normal anatomy. Neck/trachea: Trachea midline, supple. Nose: Normal external anatomy. Mouth: Moist mucous membranes. Chest: Decreased air entry bilaterally. No wheezing or rhonchi. Cardiovascular: Positive S1, positive S2. Regular rate and rhythm. Abdomen: Positive bowel sounds in all 4 quadrants. Soft, non-tender, non- distended. : Deferred. Rectal: Deferred. Skin: Warm, dry. Intact. Extremities: 2+ radial pulses bilaterally. No lower extremity edema. Neuro: Awake, alert, oriented x3. No gross motor or sensory deficits. Cranial nerves II through XII intact. Gait not assessed. laboratory and microbiology Laboratory Tests 06/08/24 06:27 Test 06/08/24 06:27 Range/Units Serum Glucose 177 H 74-106 mg/dL Assessment/Plan Impression: Acute hypoxic respiratory failure secondary to pneumonia Pneumonia likely Gram-negative Sepsis Pleural effusion Atelectasis Generalized weakness Anemia Lactic acidosis Metabolic acidosis Events: Remains on supplemental oxygen, 6 LPM Oxymizer Taper O2 as tolerated BiPAP PRN On pressors for hemodynamic support Levophed 6 mcg/min Titrate to keep mean arterial pressure greater than 65 mmHg. Continue antibiotics Follow up cultures Incentive spirometry Head of bed elevation Aspiration precautions Monitor respiratory status closely Obtain CXR to assess for interval changes. Check influenza Labs and imaging reviewed. Rest of plan as noted below. Plan: Chest x-ray imaging report reviewed. Diffuse interstitial and alveolar type opacities bilaterally. Multifocal pneumonia. Small left pleural effusion, atelectasis. On 6 LPM Oxymizer Recommend to initiate noninvasive positive pressure ventilation. Titrate FiO2 to keep sats above 92%. Head of bed elevation Aspiration precautions IV steroids Continue antibiotics Follow up cultures. On pressors for hemodynamic support Titrate to keep mean arterial pressure greater than 65 mmHg. DVT prophylaxis with Lovenox GI prophylaxis with Pepcid Condition: Critical Prognosis: Poor given multiple comorbidities. Rest of plan per hospitalist and other consultants. A total of 35 minutes of critical care time was spent reviewing the patient record, examining the patient, making a diagnostic and therapeutic plan, discussing this plan with the medical personnel, following up on diagnostic studies and following the patient for clinical stability excluding any and all procedures. At least 50% of this time was spent in direct, [id number] contact. Thank you ANN Rocha for allowing me to participate in this patient's care. Further recommendations will depend on patient's clinical course. Please do not hesitate to contact me if you have any questions or concerns. This medical document was created using an electronic medical record system with [employer] dictation system. Although this document has been carefully reviewed, there may still be some phonetic and typographical errors. These areas are purely typographical due to imperfections of the software programs, and do not reflect any compromise in the patient's medical care. Plan discussed with: Patient, Other (GIO Camarena) Critical Care Time(min): 35 CHAU COHEN MD Jun 08, 2024 20:28
[2024-06-08] MEDS ORDERED: VANCOMYCIN 1GM/250ML KIT 250 ML IV ONE (23:00)
[2024-06-09] VITALS (11 sets, daily range): BP systolic 60–130; BP diastolic 41–105; PULSE 93–122; RESP 16; O2SAT 94–99
[2024-06-09 03:13] LABS: Rapid Influenza A Negative (Negative); Rapid Influenza B Negative (Negative)
[2024-06-09 04:33] LABS: Basophils # (auto) 0 10 ^3/uL (0-0.2); Eosinophils # (auto) 0 10 ^3/uL (0-0.8); Hemoglobin 9.7 g/dL (12.2-16.2); Platelet Count (auto) 469 10^3/uL (140-450); Red Blood Cells 3.52 10^6/uL (4.0-5.20)
[2024-06-09 04:35] LABS: Hematocrit 32.2 % (36.0-46.0); Lymphocytes # (auto) 0.6 10 ^3/uL (0.4-5.4); Lymphocytes % (auto) 2.6 % (10.0-50.0); Mean Corpuscular Hemoglobin 27.6 pg (28.0-32.0); Mean Corpuscular Hgb Conc. 30.1 g/dL (32.0-36.0); Mean Corpuscular Volume 91.6 fL (80.0-100.0); Monocytes # (auto) 0.7 10 ^3/uL (0-1.3); Monocytes % (auto) 3.1 % (0.0-12.0); Neutrophils # (auto) 20.7 10 ^3/uL (1.6-8.6); Neutrophils % (auto) 94.3 % (37.0-80.0); Nucleated Red Blood Cells % 0.1 %; Red Cell Distribution Width 17.5 % (11.8-14.3)
[2024-06-09] MEDS: FUROSEMIDE 20 MG/2 ML VIAL IV ONE (06:49)
[2024-06-09 06:52] LABS: Base Excess -11.1 mmol/L (-2.0-3.0)
[2024-06-09] MEDS: ETOMIDATE (2MG/ML) 20ML VIAL IV ONE ×2 (07:23→07:31)
[2024-06-09] MEDS: MIDAZOLAM DRIP 50 mg/50mL 50 ML IV ONE (07:23)
[2024-06-09] MEDS: ROCURONIUM 10MG/ML 10ML VIAL IV ONE ×2 (07:24→07:32)
[2024-06-09] MEDS: MIDAZOLAM DRIP 50 mg/50mL 50 ML IV SCH (07:35)
[2024-06-09] MEDS: NOREPINEPHRINE 8 MG/250ML KIT 250 ML IV ONE (07:42)
[2024-06-09] MEDS: NOREPINEPHRINE 8 MG/250ML KIT 250 ML IV SCH (07:45)
--- NOTE | 2024-06-09 08:30 | DVH ---
EXAM: XY CHEST PORTABLE Indication: s/p intubation Technique: Single frontal view of the chest was obtained Comparison: XY CHEST XRAY 1 VIEW on DOS: 06/08/24, XY CHEST PORTABLE on DOS: 06/07/24 FINDINGS: Lines and Tubes: Endotracheal tube is at the level of the blanca. Recommend retraction. Enteric tube is in appropriate position. Lungs: Multifocal consolidative opacities. Pleura: Small left pleural effusion. No pneumothorax. Cardiomediastinal contours: Unremarkable Bones: No acute osseous abnormality. IMPRESSION: Endotracheal tube is at the level of the blanca. Recommend retraction. Small left pleural effusion.
[2024-06-09 09:19] LABS: Base Excess -9.8 mmol/L (-2.0-3.0)
[2024-06-09 09:32] LABS: Basophils # (auto) 0 10 ^3/uL (0-0.2); Eosinophils # (auto) 0 10 ^3/uL (0-0.8); Monocytes # (auto) 0.6 10 ^3/uL (0-1.3)
--- NOTE | 2024-06-09 09:32 | DVHNC2 ---
Intubation Indication: Respiratory Insufficiency Prep: Preoxygenation Pretreated with: Sedation Medicated with: Other (etomidate and rocuronium) Intubation Approach: Orotracheal Intubation size: cm (7) Informed consent obtained: Yes Risks/benefits/alt described: Yes Notes patient was sedated with 20 mg Etomidate IV followed by 100 mg Rocuronium IV. Using a glidescope, orotracheal intubation was done with a ET tube of 7mm. Condensation seen in the tube, bilateral chest rise and breath sounds were auscultated. Color change was seen on caloric capnography and the ET tube was fixed at 23cm at the teeth. supervised the procedure. Date of Service: Jun 09, 2024 Billing Provider: LISANDRO GARDNER MD Common Visit Codes: PROCEDURE ONLY JANIE APPIAH RESIDENT Jun 09, 2024 09:32
[2024-06-09 09:34] LABS: Hematocrit 32.7 % (36.0-46.0); Hemoglobin 9.8 g/dL (12.2-16.2); Lymphocytes # (auto) 0.7 10 ^3/uL (0.4-5.4); Lymphocytes % (auto) 3.6 % (10.0-50.0); Mean Corpuscular Hemoglobin 27.7 pg (28.0-32.0); Mean Corpuscular Hgb Conc. 29.9 g/dL (32.0-36.0); Mean Corpuscular Volume 92.8 fL (80.0-100.0); Monocytes % (auto) 2.8 % (0.0-12.0); Neutrophils # (auto) 18.9 10 ^3/uL (1.6-8.6); Neutrophils % (auto) 93.6 % (37.0-80.0); Platelet Count (auto) 470 10^3/uL (140-450); Red Blood Cells 3.52 10^6/uL (4.0-5.20); Red Cell Distribution Width 18.1 % (11.8-14.3); White Blood Cell 20.2 10^3/uL (4.4-10.8)
[2024-06-09 09:37] LABS: Potassium 3.8 mmol/L (3.5-5.1)
[2024-06-09 09:38] LABS: Anion Gap 9 (5-15); Calcium 8.9 mg/dL (8.7-10.4)
[2024-06-09 09:42] LABS: Carbon Dioxide 19 mmol/L (20-31); Chloride 117 mmol/L (98-107); Sodium 145 mmol/L (136-145)
[2024-06-09 09:43] LABS: BUN/Creatinine Ratio 32.9 (10.0-20.0); Blood Urea Nitrogen 23 mg/dL (9-23)
[2024-06-09 09:48] LABS: Glucose 134 mg/dL (74-106)
--- NOTE | 2024-06-09 09:51 | DVHPN2 ---
Subjective Patient intubated and sedated. Reviewed: Care Plan, H&P, Labs, Medications Changes from previous H/P or p: Changes General: Per HPI Eyes: No Pain, No Vision change, No Conjunctivae inflammation, No Eyelid inflammation, No Other, No Redness ENT: No Ear pain, No Ear discharge, No Nose pain, No Nose discharge, No Nose congestion, No Mouth pain, No Mouth swelling, No Throat pain, No Throat swelling, No Other Cardiovascular: No Chest Pain, No Palpitations, No Orthopnea, No Paroxysmal Noc. Dyspnea, No Edema, No Lt Headedness, No Other Respiratory: Cough; No Dry; Shortness of breath, SOB with excertion; No Wheezing, No Hemoptysis, No Pleuritic Pain, No Sputum; Other (SOB at rest) Gastrointestinal: No Nausea, No Vomiting, No Abdominal Pain, No Diarrhea, No Constipation, No Melena, No Hematochezia, No Other Genitourinary: No Dysuria, No Frequency, No Incontinence, No Hematuria, No Retention, No Other Musculoskeletal: No other, No neck pain, No shoulder pain, No arm pain, No back pain, No hand pain, No leg pain, No foot pain Skin: No Rash, No Lesions, No Jaundice, No Bruising, No Other Objective Vitals Vital Signs Date Time Temp Pulse Resp B/P (MAP) Pulse Ox O2 Delivery O2 Flow Rate FiO2 06/09/24 08:13 91 06/09/24 07:45 60/41 06/09/24 07:33 16 99 100 06/09/24 06:30 Facial BiPAP Mask 06/08/24 23:22 10 06/08/24 15:30 97.5 97.5 Intake/Output Intake and Output 06/09/24 07:00 Intake Total 2301.25 ml Output Total 800 ml Balance 1501.25 ml Intake IV Total 2301.25 ml Output Urine Total 800 ml General Appearance: severe distress HEENT: Atraumatic, PERRLA Lungs: Clear to auscultation, Normal air movement Cardiovascular: Normal S1, Normal S2, Other (Sinus tachycardia) Abdomen: Normal bowel sounds, Soft Musculoskeletal: Normal sensory function, Normal motor function Psych/Mental Status: Mood NL (Anxious) Medications Current Medications Medications Dose Ordered Sig/Ben Route Start Time Stop Time Status Last Admin Dose Admin Famotidine 20 mg Q12HR IV 06/08/24 10:00 06/08/24 22:48 20 MG Albuterol 2.5 mg Q4HPRN PRN NEB 06/07/24 23:15 06/09/24 02:57 2.5 MG Ipratropium [place] 0.5 mg Q4HPRN PRN NEB 06/07/24 23:15 06/09/24 02:57 0.5 MG Vancomycin HCl 0 ml @ 0 mls/hr UD IV 06/07/24 23:15 Acetaminophen/ Hydrocodone Bitart 1 tab Q4HP PRN PO 06/07/24 23:15 Ondansetron HCl 4 mg Q4HP PRN IV 06/07/24 23:15 Docusate Sodium 100 mg BIDPRN PRN PO 06/07/24 23:15 Acetaminophen 650 mg Q6HP PRN PO 06/07/24 23:15 Nitroglycerin 0.4 mg Q5MINP PRN SL 06/07/24 23:15 Morphine Sulfate 2 mg Q30M PRN IV 06/07/24 23:15 Enoxaparin Sodium 40 mg DAILY SC 06/08/24 10:00 06/08/24 11:02 40 MG Ceftriaxone Sodium 50 ml @ 100 mls/hr DAILY@09 IV 06/08/24 11:02 06/09/24 09:33 100 MLS/HR Azithromycin 250 ml @ 125 mls/hr DAILY IV 06/09/24 10:00 Vancomycin HCl 100 ml @ 200 mls/hr Q12H IV 06/08/24 23:15 06/08/24 23:05 200 MLS/HR Midazolam HCl 50 ml @ 1 mls/hr Q24H IV 06/09/24 07:30 06/09/24 07:35 1 MLS/HR Norepinephrine Bitartrate 250 ml @ 3.75 mls/hr Q24H IV 06/09/24 07:45 06/09/24 07:45 3.75 MLS/HR Methylprednisolone Sodium Succinate 40 mg Q12HR IV 06/09/24 10:00 UNV Sodium Bicarbonate 50 ml/ Sodium Chloride 1,050 ml @ 75 mls/hr Q14H IV 06/09/24 09:45 UNV Enteral Nutritional Formula 1,000 ml 30ML/HR GT 06/09/24 09:45 UNV Pantoprazole Sodium 40 mg DAILY IV 06/09/24 10:00 UNV Laboratory Results Laboratory Tests 06/09/24 09:11 Chemistry Test 06/09/24 09:11 Calcium Level 8.9 mg/dL (8.7-10.4) Coagulation Test 06/08/24 12:56 Prothrombin Time 13.0 sec (9.3-11.8) H Prothrombin Time INR 1.25 (0.9-1.15) H Activated Partial Thromboplast Time 28.7 SEC (24.5-34.5) D-Dimer, Quantitative 13.33 mg/L FEU (0.0-0.49) H Urinalysis Test 06/08/24 03:50 Urine Color Straw (Yellow) Urine Clarity Clear (Clear) Urine pH 5.5 (5.0-9.0) Urine Specific [place] 1.005 (1.001-1.035) Urine Protein Negative (Negative) Urine Ketones Negative (Negative) Urine Blood 2+ /uL (Negative) H Urine Nitrite Negative (Negative) Urine Bilirubin Negative (Negative) Urine Urobilinogen Normal mg/dL (Negative) Urine Leukocyte Esterase Negative /uL (Negative) Urine RBC 1 /hpf (0 - 4) Urine WBC 3 /hpf (0 - 5) Urine Squamous Epithelial Cells Few /hpf (<5) Urine Bacteria Few /hpf (None Seen) H Urine Hyaline Casts Few /lpf (0 - 2) Urine Mucus Few (None Seen) Urine Yeast (Budding) Occasional /hpf (None Urine Glucose Normal mg/dL (Normal) Blood Gas Results Test 06/09/24 06:38 06/09/24 09:08 Arterial Blood pH 7.243 (7.350-7.450) 7.318 (7.350-7.450) FiO2 % 75.0 100.0 Microbiology Microbiology Date/Time Source Procedure Growth Status 06/07/24 20:55 Blood Blood Culture - Preliminary NO GROWTH AFTER 24 HOURS OF INCUBATION. 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 -continue vasopressor therapy -continue current antibiotic therapy -CT angiogram of the chest -start sodium bicarbonate drip -bronchodilators -oneal cultures -repeat labs, chest x-ray, ABG in a.m. Critical care time spent with patient discussing and formulating plan of care: 90 minutes. This does not include time spent performing procedures. This medical document was created using an electronic medical record system with [employer] dictation system. Although this document has been carefully reviewed, there may still be some phonetic and typographical errors. These areas are purely typographical due to imperfections of the software programs, and do not reflect any compromise in the patient's medical care. Plan discussed with: Patient, Daughter, Other (RN) My Orders Orders - ED BRADLEY [employer] Procedure Category Date Status Time Urine Bacterial SHAYY 06/08/24 In Process Culture 10:18 Kub Abdomen Single XY 06/08/24 Resulted View 10:18 Azithromycin 500mg/ PHA 06/09/24 In Process 250ml (Zithromax 50 10:00 Ceftriaxone 1gm/50ml PHA 06/08/24 In Process D5w (Rocephin) 11:02 Code Status CODE 06/08/24 Transmitted 11:40 Basic Metabolic Panel LAB 06/09/24 In Process 08:31 Methylprednisolone PHA 06/09/24 Logged Sod Succ (Solu Medrol 10:00 Quantiferon-Tb Gold LAB 06/09/24 Logged 09:40 Complete Blood Count LAB 06/10/24 Verified 05:00 Complete Blood Count LAB 06/11/24 Verified 05:00 Complete Blood Count LAB 06/12/24 Verified 05:00 Basic Metabolic Panel LAB 06/10/24 Verified 05:00 Basic Metabolic Panel LAB 06/11/24 Verified 05:00 Basic Metabolic Panel LAB 06/12/24 Verified 05:00 Chest Portable XY 06/10/24 Logged 05:00 Chest Portable XY 06/11/24 Logged 05:00 Chest Portable XY 06/12/24 Logged 05:00 Sod Chl 0.45% PHA 06/09/24 Logged (Sodi... W/Sodium 09:[address] 06/09/24 Logged Contrast 09:44 Nutritional PHA 06/09/24 Logged Supplements (Jevity 09:45 Pantoprazole PHA 06/09/24 Logged (Protonix) 10:00 Date of Service: Jun 09, 2024 Billing Provider: ED BRADLEY NP Common Visit Codes: [id number] CARE 30-74 MIN ED BRADLEY NP Jun 09, 2024 09:50
--- NOTE | 2024-06-09 10:08 | DVH ---
CHEST RADIOGRAPH Indication: central line placement and OG tube placement Technique: Single frontal view of the chest was obtained COMPARISON: XY CHEST PORTABLE on DOS: 06/09/24, XY CHEST XRAY 1 VIEW on DOS: 06/08/24, XY CHEST JESSE BLE on DOS: 06/07/24 FINDINGS: Lines and Tubes: Endotracheal tube, enteric catheter and right central venous catheter in satisfactor y position. Lungs: Multifocal airspace disease Pleura: No effusion. No pneumothorax. Cardiomediastinal contours: Unremarkable Bones: Unremarkable IMPRESSION: Lines and tubes in satisfactory position. No significant interval change.
[2024-06-09] MEDS: PANTOPRAZOLE 40 MG/10 ML VIAL INJ IV SCH (10:29)
[2024-06-09] MEDS: methylPREDNISolone SOD SUCC 40 MG/ML VL IV SCH (10:29)
[2024-06-09] MEDS: SODIUM BICARB 50mEq/50ml Vial 50 ML in SOD CHL 0.45% 1,000 ML IV SCH (11:01)
[2024-06-09] MEDS: VANCOMYCIN 500mg/100mL 100 ML IV SCH (11:01)
[2024-06-09] MEDS: AMIODARONE BOLUS KIT 100 ML IV ONE (12:27)
[2024-06-09] MEDS: AMIODARONE 450mg/250ml AE 250 ML IV SCH ×2 (12:34→18:45)
[2024-06-09] MEDS: IOHEXOL 350 MG/ML 100ML IJ ONE (13:22)
[2024-06-09] MEDS: AZITHROMYCIN 500MG/ 250ML 250 ML IV SCH (13:59)
[2024-06-09] MEDS: NOREPINEPHRINE BITARTRATE 16 MG in SODIUM CHL 0.9% 234 ML IV SCH (14:00)
--- NOTE | 2024-06-09 14:40 | DVH ---
CTA Chest with intravenous contrast INDICATION: rule out PE COMPARISON: None TECHNIQUE: Multidetector spiral CTA of the chest was performed of the chest with intravenous contrast . PULMONARY ANGIOGRAPHY PROTOCOL was utilized using a bolus-tracking technique centered on the main p ulmonary artery. Axial, coronal and sagittal multiplanar and MIP reformats were performed. CONTRAST: Type of contrast: Omni 350 Contrast injected: 100 ml Radiation dose : Chest: CTDI volume is 15 mGy. Dose-length product is 293 mGy*cm The dose indicators for CT are the volume computed Tomography (CT) dose Index (CTDIvol) and the dose Length product (DLP), and are measured in units of mGy and mGy-cm, respectively. These indicators are not patient dose, but values generated from the CT scanner acquisition factors. The report includes radiation exposure data for exposures received during this examination. Findings: Pulmonary artery: No pulmonary embolism Lower neck: Endotracheal tube in place with tip at the level of the right mainstem bronchus. This cou ld be pulled back a little. Nasogastric tube in place. Lungs: Patchy consolidation in both lungs with bronchiectasis and cavitation. Heart/Vascular Structures: Normal heart size. Small pericardial effusion. Lymph Nodes: Subcentimeter mediastinal lymph nodes noted. Pleura: Moderate left and small right pleural effusions. Musculoskeletal: No acute osseous abnormality. Soft tissues: Normal. Upper abdomen: Limited portions of the upper abdomen are unremarkable. IMPRESSION: 1. No pulmonary embolism. 2. Bilateral pleural effusions left greater than right. Patchy consolidation with bronchiectasis and cavitation in both lungs. Clinical correlation and continued follow-up to resolution is recommended. Endotracheal tube could be pulled back slightly as it is tip is in the right mainstem bronchus. HS:Y
[2024-06-09] MEDS: Jevity 1.2 Cal/Fiber 1 Liter GT SCH (14:45)
[2024-06-09] MEDS: PIPERACILLIN-TAZOB 3.375GM 100 ML IV SCH (21:38)
--- NOTE | 2024-06-09 23:46 | DVHPN2 ---
Progress Note - Dictate Date Seen: Jun 09, 2024 Medical Necessity Reason Pt with a Central, PICC or Fol: Yes The following are medically ne: Ribeiro Catheter Reason for ribeiro catheter: Strict I&O Subjective Patient seen and examined at bedside. Intubated on mechanical ventilator Overnight events reviewed. vital signs Vital Sign Date Time Temp Pulse Resp B/P (MAP) Pulse Ox O2 Delivery O2 Flow Rate FiO2 06/09/24 23:30 98.8 94 16 104/64 (77) 95 98.8 06/09/24 22:15 35 06/09/24 19:30 Mechanical Ventilator+ 06/08/24 23:22 10 Total Intake and Output 06/08/24 06/08/24 06/09/24 15:00 23:00 07:00 Intake Total 1073.75 ml 527.50 ml 700 ml Output Total 800 ml Balance 1073.75 ml -272.50 ml 700 ml medications Current Medications Medications Dose Ordered Sig/Ben Route Start Time Stop Time Status Last Admin Dose Admin Albuterol 2.5 mg Q4HPRN PRN NEB 06/07/24 23:15 06/09/24 02:57 2.5 MG Ipratropium [place] 0.5 mg Q4HPRN PRN NEB 06/07/24 23:15 06/09/24 02:57 0.5 MG Vancomycin HCl 0 ml @ 0 mls/hr UD IV 06/07/24 23:15 Acetaminophen/ Hydrocodone Bitart 1 tab Q4HP PRN PO 06/07/24 23:15 Ondansetron HCl 4 mg Q4HP PRN IV 06/07/24 23:15 Docusate Sodium 100 mg BIDPRN PRN PO 06/07/24 23:15 Acetaminophen 650 mg Q6HP PRN PO 06/07/24 23:15 Nitroglycerin 0.4 mg Q5MINP PRN SL 06/07/24 23:15 Morphine Sulfate 2 mg Q30M PRN IV 06/07/24 23:15 Enoxaparin Sodium 40 mg DAILY SC 06/08/24 10:00 06/09/24 10:30 40 MG Midazolam HCl 50 ml @ 1 mls/hr Q24H IV 06/09/24 07:30 06/09/24 14:05 3 MLS/HR Methylprednisolone Sodium Succinate 40 mg Q12HR IV 06/09/24 10:00 06/09/24 21:38 40 MG Sodium Bicarbonate 50 ml/ Sodium Chloride 1,050 ml @ 75 mls/hr Q14H IV 06/09/24 09:45 06/09/24 11:01 75 MLS/HR Enteral Nutritional Formula 1,000 ml 30ML/HR GT 06/09/24 09:45 06/09/24 14:45 1,000 ML Pantoprazole Sodium 40 mg DAILY IV 06/09/24 10:00 06/09/24 10:29 40 MG Vancomycin HCl 100 ml @ 200 mls/hr Q12H IV 06/09/24 10:00 06/09/24 21:48 200 MLS/HR Amiodarone HCl 250 ml @ 16.667 mls/ hr Q15H IV 06/09/24 18:00 06/09/24 21:22 16.667 MLS/HR Norepinephrine Bitartrate 16 mg/ Sodium Chloride 250 ml @ 1.875 mls/ hr Q24H IV 06/09/24 14:00 06/09/24 14:00 16.875 MLS/HR Piperacillin Sod/ Tazobactam Sod 100 ml @ 25 mls/hr Q8HR IV 06/09/24 22:00 06/09/24 21:38 25 MLS/HR objective Gen.: Patient lying in bed in medical ICU. Sedated, intubated on mechanical ventilator. Head: Normocephalic, atraumatic. Eyes: PERRLA. Ears: Normal external anatomy. Throat: Endotracheal tube and orogastric tube in place. Neck: Supple, trachea midline. Chest: Transmitted breath sounds bilaterally. Decreased air entry bilaterally. No wheezing. Bibasilar crackles. Cardio vascular: Positive S1, positive S2. Regular rate and rhythm. Abdomen: Positive bowel sounds in all 4 quadrants. Soft, nontender, nondistended. : Ribeiro in place. Normal external genitalia. Rectal: Deferred Skin: Warm, dry. Intact. Extremities: 2+ radial pulses bilaterally. No lower extremity edema. Neuro: Sedated. laboratory and microbiology Laboratory Tests 06/09/24 09:11 Test 06/09/24 09:11 Range/Units Serum Glucose 134 H 74-106 mg/dL Assessment/Plan Impression: Acute hypoxic respiratory failure secondary to pneumonia On mechanical ventilator Pneumonia likely Gram-negative Septic shock Pleural effusion Atelectasis Generalized weakness Anemia Lactic acidosis Metabolic acidosis Events: BiPAP attempted. ABG notable for acidemia Intubated and placed on mechanical ventilator On vent: 16, 450, 5, 100% Titrate FIO2 to keep o2 sat above 92% VAP bundle On pressors for hemodynamic support Levophed Titrate to keep mean arterial pressure greater than 65 mmHg. Continue antibiotics Follow up cultures Incentive spirometry Head of bed elevation Aspiration precautions Monitor respiratory status closely Labs and imaging reviewed. Rest of plan as noted below. Plan: Chest x-ray imaging report reviewed. Diffuse interstitial and alveolar type opacities bilaterally. Multifocal pneumonia. Small left pleural effusion, atelectasis. On 6 LPM Oxymizer Recommend to initiate noninvasive positive pressure ventilation. Titrate FiO2 to keep sats above 92%. Head of bed elevation Aspiration precautions IV steroids Continue antibiotics Follow up cultures. On pressors for hemodynamic support Titrate to keep mean arterial pressure greater than 65 mmHg. DVT prophylaxis with Lovenox GI prophylaxis with Pepcid Condition: Critical Prognosis: Poor given multiple comorbidities. Rest of plan per hospitalist and other consultants. A total of 35 minutes of critical care time was spent reviewing the patient record, examining the patient, making a diagnostic and therapeutic plan, discussing this plan with the medical personnel, following up on diagnostic studies and following the patient for clinical stability excluding any and all procedures. At least 50% of this time was spent in direct, [id number] contact. Thank you ANN Rocha for allowing me to participate in this patient's care. Further recommendations will depend on patient's clinical course. Please do not hesitate to contact me if you have any questions or concerns. This medical document was created using an electronic medical record system with [employer] dictation system. Although this document has been carefully reviewed, there may still be some phonetic and typographical errors. These areas are purely typographical due to imperfections of the software programs, and do not reflect any compromise in the patient's medical care. Plan discussed with: Other (RN, RT, MERCHANDISE COLLECTOR) Critical Care Time(min): 35 CHAU COHEN MD Jun 09, 2024 23:46
[2024-06-10] VITALS (33 sets, daily range): BP systolic 76–125; BP diastolic 47–76; PULSE 68–94; RESP 16–30; TEMP 97.5–98.6; O2SAT 94–99
[2024-06-10 06:05] LABS: Basophils # (auto) 0 10 ^3/uL (0-0.2); Basophils % (auto) 0.1 % (0.0-2.0); Eosinophils # (auto) 0 10 ^3/uL (0-0.8); Eosinophils % (auto) 0.1 % (0.0-7.0); Hematocrit 28.3 % (36.0-46.0); Hemoglobin 8.9 g/dL (12.2-16.2); Lymphocytes # (auto) 0.8 10 ^3/uL (0.4-5.4); Lymphocytes % (auto) 4.3 % (10.0-50.0); Mean Corpuscular Hemoglobin 27.1 pg (28.0-32.0); Mean Corpuscular Hgb Conc. 31.3 g/dL (32.0-36.0); Mean Corpuscular Volume 86.7 fL (80.0-100.0); Monocytes # (auto) 0.5 10 ^3/uL (0-1.3); Monocytes % (auto) 2.4 % (0.0-12.0); Neutrophils # (auto) 17.6 10 ^3/uL (1.6-8.6); Neutrophils % (auto) 93.1 % (37.0-80.0); Nucleated Red Blood Cells % 0.4 %; Platelet Count (auto) 419 10^3/uL (140-450); Red Blood Cells 3.27 10^6/uL (4.0-5.20); Red Cell Distribution Width 17.2 % (11.8-14.3); White Blood Cell 18.9 10^3/uL (4.4-10.8)
--- NOTE | 2024-06-10 06:13 | DVH ---
CHEST RADIOGRAPH Indication: Respiratory Failure Technique: Single frontal view of the chest was obtained Comparison: XY CHEST PORTABLE on DOS: 06/09/24 FINDINGS: Lines and Tubes: The endotracheal tube terminates above the blanca. The enteric tube terminates in t he stomach. Right central venous catheter terminates in the right atrium. Lungs: Patchy diffuse bilateral opacities are similar to prior study. Pleura: No effusion. No pneumothorax. Cardiomediastinal contours: Stable. Bones: No acute osseous abnormality. IMPRESSION: 1. Stable position of the support lines and tubes. No significant change in appearance of the bilater al lung hollins.
[2024-06-10 06:17] LABS: Sodium 141 mmol/L (136-145)
[2024-06-10 06:18] LABS: Anion Gap 11 (5-15)
[2024-06-10 06:20] LABS: Calcium 8.6 mg/dL (8.7-10.4); Carbon Dioxide 17 mmol/L (20-31); Chloride 113 mmol/L (98-107); Potassium 3.4 mmol/L (3.5-5.1)
[2024-06-10 06:38] LABS: Blood Urea Nitrogen 27 mg/dL (9-23); Glucose 218 mg/dL (74-106)
--- NOTE | 2024-06-10 07:51 | DVHPN2 ---
Subjective Patient intubated and sedated. Reviewed: Care Plan, H&P, Labs, Medications Changes from previous H/P or p: No Changes General: Per HPI Eyes: No Pain, No Vision change, No Conjunctivae inflammation, No Eyelid inflammation, No Other, No Redness ENT: No Ear pain, No Ear discharge, No Nose pain, No Nose discharge, No Nose congestion, No Mouth pain, No Mouth swelling, No Throat pain, No Throat swelling, No Other Cardiovascular: No Chest Pain, No Palpitations, No Orthopnea, No Paroxysmal Noc. Dyspnea, No Edema, No Lt Headedness, No Other Respiratory: Cough; No Dry; Shortness of breath, SOB with excertion; No Wheezing, No Hemoptysis, No Pleuritic Pain, No Sputum; Other (SOB at rest) Gastrointestinal: No Nausea, No Vomiting, No Abdominal Pain, No Diarrhea, No Constipation, No Melena, No Hematochezia, No Other Genitourinary: No Dysuria, No Frequency, No Incontinence, No Hematuria, No Retention, No Other Musculoskeletal: No other, No neck pain, No shoulder pain, No arm pain, No back pain, No hand pain, No leg pain, No foot pain Skin: No Rash, No Lesions, No Jaundice, No Bruising, No Other Objective Vitals Vital Signs Date Time Temp Pulse Resp B/P (MAP) Pulse Ox O2 Delivery O2 Flow Rate FiO2 06/10/24 07:00 98.6 91 20 130/77 (94) 97 98.6 06/10/24 06:42 35 06/09/24 19:30 Mechanical Ventilator+ 06/08/24 23:22 10 Intake/Output Intake and Output 06/10/24 07:00 Intake Total 2146.504 ml Balance 2146.504 ml Intake IV Total 2063.504 ml Tube Feeding 83 ml General Appearance: severe distress HEENT: Atraumatic, PERRLA Lungs: Clear to auscultation, Normal air movement Cardiovascular: Normal S1, Normal S2, Other (Sinus tachycardia) Abdomen: Normal bowel sounds, Soft Musculoskeletal: Normal sensory function, Normal motor function Psych/Mental Status: Mood NL (Anxious) Medications Current Medications Medications Dose Ordered Sig/Ben Route Start Time Stop Time Status Last Admin Dose Admin Albuterol 2.5 mg Q4HPRN PRN NEB 06/07/24 23:15 06/09/24 02:57 2.5 MG Ipratropium [place] 0.5 mg Q4HPRN PRN NEB 06/07/24 23:15 06/09/24 02:57 0.5 MG Vancomycin HCl 0 ml @ 0 mls/hr UD IV 06/07/24 23:15 Acetaminophen/ Hydrocodone Bitart 1 tab Q4HP PRN PO 06/07/24 23:15 Ondansetron HCl 4 mg Q4HP PRN IV 06/07/24 23:15 Docusate Sodium 100 mg BIDPRN PRN PO 06/07/24 23:15 Acetaminophen 650 mg Q6HP PRN PO 06/07/24 23:15 Nitroglycerin 0.4 mg Q5MINP PRN SL 06/07/24 23:15 Morphine Sulfate 2 mg Q30M PRN IV 06/07/24 23:15 Enoxaparin Sodium 40 mg DAILY SC 06/08/24 10:00 06/09/24 10:30 40 MG Midazolam HCl 50 ml @ 1 mls/hr Q24H IV 06/09/24 07:30 06/09/24 14:05 3 MLS/HR Methylprednisolone Sodium Succinate 40 mg Q12HR IV 06/09/24 10:00 06/09/24 21:38 40 MG Sodium Bicarbonate 50 ml/ Sodium Chloride 1,050 ml @ 75 mls/hr Q14H IV 06/09/24 09:45 06/10/24 01:00 75 MLS/HR Enteral Nutritional Formula 1,000 ml 30ML/HR GT 06/09/24 09:45 06/09/24 14:45 1,000 ML Pantoprazole Sodium 40 mg DAILY IV 06/09/24 10:00 06/09/24 10:29 40 MG Vancomycin HCl 100 ml @ 200 mls/hr Q12H IV 06/09/24 10:00 06/09/24 21:48 200 MLS/HR Amiodarone HCl 250 ml @ 16.667 mls/ hr Q15H IV 06/09/24 18:00 06/09/24 21:22 16.667 MLS/HR Norepinephrine Bitartrate 16 mg/ Sodium Chloride 250 ml @ 1.875 mls/ hr Q24H IV 06/09/24 14:00 06/10/24 04:28 16.875 MLS/HR Piperacillin Sod/ Tazobactam Sod 100 ml @ 25 mls/hr Q8HR IV 06/09/24 22:00 06/10/24 05:37 25 MLS/HR Laboratory Results Laboratory Tests 06/10/24 05:23 Chemistry Test 06/09/24 09:11 06/10/24 05:23 Calcium Level 8.9 mg/dL (8.7-10.4) 8.6 mg/dL (8.7-10.4) L Urinalysis Test 06/08/24 03:50 Urine Color Straw (Yellow) Urine Clarity Clear (Clear) Urine pH 5.5 (5.0-9.0) Urine Specific [place] 1.005 (1.001-1.035) Urine Protein Negative (Negative) Urine Ketones Negative (Negative) Urine Blood 2+ /uL (Negative) H Urine Nitrite Negative (Negative) Urine Bilirubin Negative (Negative) Urine Urobilinogen Normal mg/dL (Negative) Urine Leukocyte Esterase Negative /uL (Negative) Urine RBC 1 /hpf (0 - 4) Urine WBC 3 /hpf (0 - 5) Urine Squamous Epithelial Cells Few /hpf (<5) Urine Bacteria Few /hpf (None Seen) H Urine Hyaline Casts Few /lpf (0 - 2) Urine Mucus Few (None Seen) Urine Yeast (Budding) Occasional /hpf (None Urine Glucose Normal mg/dL (Normal) Blood Gas Results Test 06/09/24 09:08 Arterial Blood pH 7.318 (7.350-7.450) FiO2 % 100.0 Microbiology Microbiology Date/Time Source Procedure Growth Status 06/08/24 03:50 Voided Urine Urine Culture - Preliminary Resulted 06/07/24 20:55 Blood Blood Culture - Preliminary NO GROWTH AFTER 48 HOURS OF INCUBATION. 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 Noted severe bronchograms bilaterally. -continue tube feeding -stop sodium bicarbonate drip -continue vasopressor therapy -antibiotic therapy: Zosyn, vancomycin -start sodium bicarbonate drip -bronchodilators -oneal cultures -repeat labs, chest x-ray, ABG in a.m. Critical care time spent with patient discussing and formulating plan of care: 40 minutes. This does not include time spent performing procedures. This medical document was created using an electronic medical record system with [employer] dictation system. Although this document has been carefully reviewed, there may still be some phonetic and typographical errors. These areas are purely typographical due to imperfections of the software programs, and do not reflect any compromise in the patient's medical care. Plan discussed with: Patient, Other (RN) My Orders Orders - ED BRADLEY [employer] Procedure Category Date Status Time Methylprednisolone PHA 06/09/24 In Process Sod Succ (Solu Medrol 10:00 Quantiferon-Tb Gold LAB 06/09/24 In Process 09:40 Complete Blood Count LAB 06/11/24 Verified 05:00 Complete Blood Count LAB 06/12/24 Verified 05:00 Basic Metabolic Panel LAB 06/11/24 Verified 05:00 Basic Metabolic Panel LAB 06/12/24 Verified 05:00 Chest Portable XY 06/10/24 Resulted 05:00 Chest Portable XY 06/11/24 Logged 05:00 Chest Portable XY 06/12/24 Logged 05:00 Sod Chl 0.45% PHA 06/09/24 In Process (Sodi... W/Sodium 09:[address] 06/09/24 Resulted Contrast 09:44 Nutritional PHA 06/09/24 In Process Supplements (Jevity 09:45 Pantoprazole PHA 06/09/24 In Process (Protonix) 10:00 Amiodarone PHA 06/09/24 In Process 450mg/250ml Ae 18:00 Piperacillin-Tazob PHA 06/09/24 In Process 3.375gm (Zosyn 3.375g 22:00 Communication Order ORDERS 06/09/24 Transmitted 14:36 Communication Order ORDERS 06/09/24 Transmitted 14:00 Potassium Effervesent PHA 06/10/24 Verified Tab (Klor-Con/Ef) 07:45 Date of Service: Jun 10, 2024 Billing Provider: ED BRADLEY NP Common Visit Codes: [id number] CARE 30-74 MIN ED BRADLEY NP Jun 10, 2024 07:51
[2024-06-10 08:04] LABS: Base Excess -5.2 mmol/L (-2.0-3.0)
[2024-06-10] MEDS: POTASSIUM EFFERVESENT TAB 25 MEQ GT ONE (08:39)
[2024-06-10] MEDS: VANCOMYCIN 500mg/100mL 100 ML IV SCH (14:00)
--- NOTE | 2024-06-10 22:29 | DVHPN2 ---
Progress Note - Dictate Date Seen: Jun 10, 2024 Medical Necessity Reason Pt with a Central, PICC or Fol: Yes The following are medically ne: Ribeiro Catheter Reason for ribeiro catheter: Strict I&O Subjective Patient seen and examined at bedside. Sedated, intubated on mechanical ventilator. Overnight events reviewed. vital signs Vital Sign Date Time Temp Pulse Resp B/P (MAP) Pulse Ox O2 Delivery O2 Flow Rate FiO2 06/10/24 22:08 108/66 06/10/24 22:00 21 98 Mechanical Ventilator+ 30 30 06/10/24 22:00 78 06/10/24 22:00 97.9 208.2 06/08/24 23:22 10 Total Intake and Output 06/09/24 06/09/24 06/10/24 15:00 23:00 07:00 Intake Total 250 ml 929.168 ml 972.253 ml Balance 250 ml 929.168 ml 972.253 ml medications Current Medications Medications Dose Ordered Sig/Ben Route Start Time Stop Time Status Last Admin Dose Admin Albuterol 2.5 mg Q4HPRN PRN NEB 06/07/24 23:15 06/10/24 18:33 2.5 MG Ipratropium [place] 0.5 mg Q4HPRN PRN NEB 06/07/24 23:15 06/10/24 18:33 0.5 MG Vancomycin HCl 0 ml @ 0 mls/hr UD IV 06/07/24 23:15 Acetaminophen/ Hydrocodone Bitart 1 tab Q4HP PRN PO 06/07/24 23:15 Ondansetron HCl 4 mg Q4HP PRN IV 06/07/24 23:15 Docusate Sodium 100 mg BIDPRN PRN PO 06/07/24 23:15 Acetaminophen 650 mg Q6HP PRN PO 06/07/24 23:15 Nitroglycerin 0.4 mg Q5MINP PRN SL 06/07/24 23:15 Morphine Sulfate 2 mg Q30M PRN IV 06/07/24 23:15 Enoxaparin Sodium 40 mg DAILY SC 06/08/24 10:00 06/10/24 10:30 40 MG Midazolam HCl 50 ml @ 1 mls/hr Q24H IV 06/09/24 07:30 06/10/24 22:08 7 MLS/HR Methylprednisolone Sodium Succinate 40 mg Q12HR IV 06/09/24 10:00 06/10/24 21:54 40 MG Enteral Nutritional Formula 1,000 ml 30ML/HR GT 06/09/24 09:45 06/09/24 14:45 1,000 ML Pantoprazole Sodium 40 mg DAILY IV 06/09/24 10:00 06/10/24 10:29 40 MG Amiodarone HCl 250 ml @ 16.667 mls/ hr Q15H IV 06/09/24 18:00 06/10/24 12:20 16.667 MLS/HR Norepinephrine Bitartrate 16 mg/ Sodium Chloride 250 ml @ 1.875 mls/ hr Q24H IV 06/09/24 14:00 06/10/24 04:28 16.875 MLS/HR Piperacillin Sod/ Tazobactam Sod 100 ml @ 25 mls/hr Q8HR IV 06/09/24 22:00 06/10/24 21:54 25 MLS/HR Vancomycin HCl 100 ml @ 200 mls/hr Q16H IV 06/10/24 14:00 06/10/24 15:14 200 MLS/HR objective Gen.: Patient lying in bed in medical ICU. Sedated, intubated on mechanical ventilator. Head: Normocephalic, atraumatic. Eyes: PERRLA. Ears: Normal external anatomy. Throat: Endotracheal tube and orogastric tube in place. Neck: Supple, trachea midline. Chest: Transmitted breath sounds bilaterally. Decreased air entry bilaterally. No wheezing. Bibasilar crackles. Cardiovascular: Positive S1, positive S2. Regular rate and rhythm. Abdomen: Positive bowel sounds in all 4 quadrants. Soft, nontender, nondistended. : Ribeiro in place. Normal external genitalia. Rectal: Deferred. Skin: Warm, dry. Intact. Extremities: 2+ radial pulses bilaterally. No lower extremity edema. Neuro: Sedated. laboratory and microbiology Laboratory Tests 06/10/24 05:23 Test 06/10/24 05:23 Range/Units Serum Glucose 218 H 74-106 mg/dL Assessment/Plan Impression: Acute hypoxic respiratory failure secondary to pneumonia On mechanical ventilator Pneumonia likely Gram-negative Sepsis Pleural effusion Atelectasis Generalized weakness Anemia Lactic acidosis Metabolic acidosis Events: S/p intubation On mechanical ventilator Vent settings; AC mode with RR 16, VT 450, PEEP 5, FiO2 30% CXR reviewed, devices in place. Patchy diffuse bilateral opacities. No effusion or pneumothorax. Sedated on Versed On pressors (Levophed) for hemodynamic support Titrate to keep mean arterial pressure greater than 65 mmHg. Continue antibiotics - Zosyn Follow up cultures Incentive spirometry Amiodarone drip. Influenza testing negative Head of bed elevation Aspiration precautions Labs and imaging reviewed. Rest of plan as noted below. Plan: S/p intubation On mechanical ventilator Vent settings; AC mode with RR 16, VT 450, PEEP 5, FiO2 30% Head of bed elevation Aspiration precautions IV steroids Continue antibiotics Follow up cultures. On pressors for hemodynamic support Titrate to keep mean arterial pressure greater than 65 mmHg. Monitor renal function Monitor electrolytes. Supplement as necessary. Monitor ins and outs. DVT prophylaxis with Lovenox GI prophylaxis with Pepcid Condition: Critical Prognosis: Poor given multiple comorbidities. Rest of plan per hospitalist and other consultants. A total of 35 minutes of critical care time was spent reviewing the patient record, examining the patient, making a diagnostic and therapeutic plan, discussing this plan with the medical personnel, following up on diagnostic studies and following the patient for clinical stability excluding any and all procedures. At least 50% of this time was spent in direct, [id number] contact. Thank you ANN Rocha for allowing me to participate in this patient's care. Further recommendations will depend on patient's clinical course. Please do not hesitate to contact me if you have any questions or concerns. This medical document was created using an electronic medical record system with [employer] dictation system. Although this document has been carefully reviewed, there may still be some phonetic and typographical errors. These areas are purely typographical due to imperfections of the software programs, and do not reflect any compromise in the patient's medical care. Plan discussed with: Other (GIO Oneal) Critical Care Time(min): 35 CHAU COHEN MD Jun 10, 2024 22:29
[2024-06-11] VITALS (108 sets, daily range): BP systolic 83–127; BP diastolic 47–75; PULSE 55–87; RESP 13–33; TEMP 96.6–99; O2SAT 96–100
[2024-06-11] MEDS: NOREPINEPHRINE BITARTRATE 2 ML IV ONE ×2 (00:41→01:22)
[2024-06-11] MEDS: AMIODARONE HCL (50 MG/ ML) 3 ML VIAL IV ONE (00:44)
[2024-06-11 04:37] LABS: Basophils # (auto) 0 10 ^3/uL (0-0.2); Basophils % (auto) 0.2 % (0.0-2.0); Eosinophils # (auto) 0 10 ^3/uL (0-0.8); Hematocrit 28.6 % (36.0-46.0); Lymphocytes # (auto) 0.6 10 ^3/uL (0.4-5.4); Lymphocytes % (auto) 3.2 % (10.0-50.0); Mean Corpuscular Hemoglobin 27.4 pg (28.0-32.0); Mean Corpuscular Hgb Conc. 31.4 g/dL (32.0-36.0); Mean Corpuscular Volume 87.1 fL (80.0-100.0); Monocytes # (auto) 0.4 10 ^3/uL (0-1.3); Monocytes % (auto) 2.2 % (0.0-12.0); Neutrophils % (auto) 94.4 % (37.0-80.0); Nucleated Red Blood Cells % 0.3 %; Platelet Count (auto) 343 10^3/uL (140-450); Red Blood Cells 3.29 10^6/uL (4.0-5.20); Red Cell Distribution Width 17.7 % (11.8-14.3); White Blood Cell 19.1 10^3/uL (4.4-10.8)
[2024-06-11 04:46] LABS: Potassium 4.2 mmol/L (3.5-5.1); Sodium 142 mmol/L (136-145)
[2024-06-11 04:47] LABS: Anion Gap 8 (5-15)
[2024-06-11 05:21] LABS: Carbon Dioxide 20 mmol/L (20-31); Chloride 114 mmol/L (98-107)
[2024-06-11 05:22] LABS: Blood Urea Nitrogen 28 mg/dL (9-23); Calcium 8.7 mg/dL (8.7-10.4); Glucose 250 mg/dL (74-106)
--- NOTE | 2024-06-11 05:58 | DVH ---
CHEST RADIOGRAPH Indication: Respiratory Failure Technique: Single frontal view of the chest was obtained Comparison: XY CHEST PORTABLE on DOS: 06/10/24, XY CHEST PORTABLE on DOS: 06/09/24, XY CHEST PORTABLE on DOS: 06/09/24 IMPRESSION: The heart appears normal in size. Pulmonary aeration has significantly moved with persistent airspac e opacities in the perihilar region. Probable small bilateral pleural effusions. Support lines and t ubes appear unchanged in position including right IJ catheter with tip in the right atrium. No discre te pneumothorax.
[2024-06-11 06:47] LABS: Base Excess -4.6 mmol/L (-2.0-3.0)
--- NOTE | 2024-06-11 07:51 | DVHPN2 ---
Subjective Patient intubated and sedated. Reviewed: Care Plan, H&P, Labs, Medications Changes from previous H/P or p: No Changes General: Per HPI Eyes: No Pain, No Vision change, No Conjunctivae inflammation, No Eyelid inflammation, No Other, No Redness ENT: No Ear pain, No Ear discharge, No Nose pain, No Nose discharge, No Nose congestion, No Mouth pain, No Mouth swelling, No Throat pain, No Throat swelling, No Other Cardiovascular: No Chest Pain, No Palpitations, No Orthopnea, No Paroxysmal Noc. Dyspnea, No Edema, No Lt Headedness, No Other Respiratory: Cough; No Dry; Shortness of breath, SOB with excertion; No Wheezing, No Hemoptysis, No Pleuritic Pain, No Sputum; Other (SOB at rest) Gastrointestinal: No Nausea, No Vomiting, No Abdominal Pain, No Diarrhea, No Constipation, No Melena, No Hematochezia, No Other Genitourinary: No Dysuria, No Frequency, No Incontinence, No Hematuria, No Retention, No Other Musculoskeletal: No other, No neck pain, No shoulder pain, No arm pain, No back pain, No hand pain, No leg pain, No foot pain Skin: No Rash, No Lesions, No Jaundice, No Bruising, No Other Objective Vitals Vital Signs Date Time Temp Pulse Resp B/P (MAP) Pulse Ox O2 Delivery O2 Flow Rate FiO2 06/11/24 06:45 98.2 65 23 123/66 (85) 98 208.8 06/11/24 06:15 30 06/11/24 06:00 Mechanical Ventilator+ Intake/Output Intake and Output 06/11/24 07:00 Intake Total 1720.09251 ml Output Total 1500 ml Balance 220.56086 ml Intake Oral 0 ml IV Total 1150.26482 ml Tube Feeding 570 ml Output Urine Total 1500 ml Stool Total 0 ml General Appearance: severe distress HEENT: Atraumatic, PERRLA Lungs: Clear to auscultation, Normal air movement Cardiovascular: Normal S1, Normal S2, Other (Atrial fibrillation with controlled rate) Abdomen: Normal bowel sounds, Soft Musculoskeletal: Normal sensory function, Normal motor function Psych/Mental Status: Mood NL (Anxious) Medications Current Medications Medications Dose Ordered Sig/Ben Route Start Time Stop Time Status Last Admin Dose Admin Albuterol 2.5 mg Q4HPRN PRN NEB 06/07/24 23:15 06/10/24 18:33 2.5 MG Ipratropium [place] 0.5 mg Q4HPRN PRN NEB 06/07/24 23:15 06/10/24 18:33 0.5 MG Vancomycin HCl 0 ml @ 0 mls/hr UD IV 06/07/24 23:15 Acetaminophen/ Hydrocodone Bitart 1 tab Q4HP PRN PO 06/07/24 23:15 Ondansetron HCl 4 mg Q4HP PRN IV 06/07/24 23:15 Docusate Sodium 100 mg BIDPRN PRN PO 06/07/24 23:15 Acetaminophen 650 mg Q6HP PRN PO 06/07/24 23:15 Nitroglycerin 0.4 mg Q5MINP PRN SL 06/07/24 23:15 Morphine Sulfate 2 mg Q30M PRN IV 06/07/24 23:15 Enoxaparin Sodium 40 mg DAILY SC 06/08/24 10:00 06/11/24 07:48 40 MG Midazolam HCl 50 ml @ 1 mls/hr Q24H IV 06/09/24 07:30 06/11/24 05:08 7 MLS/HR Methylprednisolone Sodium Succinate 40 mg Q12HR IV 06/09/24 10:00 06/11/24 07:48 40 MG Enteral Nutritional Formula 1,000 ml 30ML/HR GT 06/09/24 09:45 06/11/24 06:06 1,000 ML Pantoprazole Sodium 40 mg DAILY IV 06/09/24 10:00 06/11/24 07:48 40 MG Amiodarone HCl 250 ml @ 16.667 mls/ hr Q15H IV 06/09/24 18:00 06/11/24 01:21 16.667 MLS/HR Norepinephrine Bitartrate 16 mg/ Sodium Chloride 250 ml @ 1.875 mls/ hr Q24H IV 06/09/24 14:00 06/11/24 04:52 7.5 MLS/HR Piperacillin Sod/ Tazobactam Sod 100 ml @ 25 mls/hr Q8HR IV 06/09/24 22:00 06/11/24 06:06 25 MLS/HR Vancomycin HCl 100 ml @ 200 mls/hr Q16H IV 06/10/24 14:00 06/11/24 05:42 200 MLS/HR Laboratory Results Laboratory Tests 06/11/24 04:18 Chemistry Test 06/11/24 04:18 Calcium Level 8.7 mg/dL (8.7-10.4) Urinalysis Test 06/08/24 03:50 Urine Color Straw (Yellow) Urine Clarity Clear (Clear) Urine pH 5.5 (5.0-9.0) Urine Specific [place] 1.005 (1.001-1.035) Urine Protein Negative (Negative) Urine Ketones Negative (Negative) Urine Blood 2+ /uL (Negative) H Urine Nitrite Negative (Negative) Urine Bilirubin Negative (Negative) Urine Urobilinogen Normal mg/dL (Negative) Urine Leukocyte Esterase Negative /uL (Negative) Urine RBC 1 /hpf (0 - 4) Urine WBC 3 /hpf (0 - 5) Urine Squamous Epithelial Cells Few /hpf (<5) Urine Bacteria Few /hpf (None Seen) H Urine Hyaline Casts Few /lpf (0 - 2) Urine Mucus Few (None Seen) Urine Yeast (Budding) Occasional /hpf (None Urine Glucose Normal mg/dL (Normal) Blood Gas Results Test 06/10/24 07:59 06/11/24 06:42 Arterial Blood pH 7.423 (7.350-7.450) 7.489 (7.350-7.450) FiO2 % 35.0 30.0 Microbiology Microbiology Date/Time Source Procedure Growth Status 06/09/24 07:45 Sputum Gram Stain - Final Resulted 06/09/24 07:45 Sputum Respiratory Culture - Preliminary Resulted 06/08/24 03:50 Voided Urine Urine Culture - Final Complete 06/07/24 20:55 Blood Blood Culture - Preliminary NO GROWTH AFTER 72 HOURS OF INCUBATION. 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 Patient's chest x-ray has improvement with opacities. Vasopressor therapy decreased. -CPAP trial, weaned sedation -continue tube feeding -stop sodium bicarbonate drip -continue vasopressor therapy -antibiotic therapy: Zosyn, vancomycin -bronchodilators -oneal cultures -repeat labs, chest x-ray, ABG in a.m. -discussed plan of care with the patient was daughter was bedside. All questions answered. Critical care time spent with patient discussing and formulating plan of care: 40 minutes. This does not include time spent performing procedures. This medical document was created using an electronic medical record system with [employer] dictation system. Although this document has been carefully reviewed, there may still be some phonetic and typographical errors. These areas are purely typographical due to imperfections of the software programs, and do not reflect any compromise in the patient's medical care. Plan discussed with: Patient, Daughter, Other (RN) My Orders Orders - ED BRADLEY NP Procedure Category Date Status Time Amiodarone Tablet PHA 06/11/24 Transmitted (Cordarone Tablet) 10:00 Cpap/Sed Vacation Med ORDERS 06/11/24 Transmitted Weaning 07:37 Cpap/Sed Vacation Med ORDERS 06/11/24 Transmitted Weaning 07:37 Date of Service: Jun 11, 2024 Billing Provider: ED BRADLEY NP Common Visit Codes: [id number] CARE 30-74 MIN ED BRADLEY NP Jun 11, 2024 07:51
[2024-06-11] MEDS: AMIODARONE HCL 200 MG TAB GT SCH (09:14)
--- NOTE | 2024-06-11 23:21 | DVHPN2 ---
Progress Note - Dictate Date Seen: Jun 11, 2024 Medical Necessity Reason Pt with a Central, PICC or Fol: Yes The following are medically ne: Ribeiro Catheter Reason for ribeiro catheter: Strict I&O Subjective Patient seen and examined at bedside. intubated on mechanical ventilator. Overnight events reviewed. vital signs Vital Sign Date Time Temp Pulse Resp B/P (MAP) Pulse Ox O2 Delivery O2 Flow Rate FiO2 06/11/24 23:00 98.1 82 28 88/58 (68) 97 208.6 06/11/24 22:40 30 06/11/24 22:00 Mechanical Ventilator+ Total Intake and Output 06/10/24 06/10/24 06/11/24 15:00 23:00 07:00 Intake Total 547.43436 ml 457.4227 ml 770.836 ml Output Total 1000 ml 500 ml Balance 547.99328 ml -542.5773 ml 270.836 ml medications Current Medications Medications Dose Ordered Sig/Ben Route Start Time Stop Time Status Last Admin Dose Admin Albuterol 2.5 mg Q4HPRN PRN NEB 06/07/24 23:15 06/10/24 18:33 2.5 MG Ipratropium [place] 0.5 mg Q4HPRN PRN NEB 06/07/24 23:15 06/10/24 18:33 0.5 MG Vancomycin HCl 0 ml @ 0 mls/hr UD IV 06/07/24 23:15 Acetaminophen/ Hydrocodone Bitart 1 tab Q4HP PRN PO 06/07/24 23:15 Ondansetron HCl 4 mg Q4HP PRN IV 06/07/24 23:15 Docusate Sodium 100 mg BIDPRN PRN PO 06/07/24 23:15 Acetaminophen 650 mg Q6HP PRN PO 06/07/24 23:15 Nitroglycerin 0.4 mg Q5MINP PRN SL 06/07/24 23:15 Morphine Sulfate 2 mg Q30M PRN IV 06/07/24 23:15 Enoxaparin Sodium 40 mg DAILY SC 06/08/24 10:00 06/11/24 07:48 40 MG Midazolam HCl 50 ml @ 1 mls/hr Q24H IV 06/09/24 07:30 06/11/24 05:08 7 MLS/HR Methylprednisolone Sodium Succinate 40 mg Q12HR IV 06/09/24 10:00 06/11/24 21:53 40 MG Enteral Nutritional Formula 1,000 ml 30ML/HR GT 06/09/24 09:45 06/11/24 06:06 1,000 ML Pantoprazole Sodium 40 mg DAILY IV 06/09/24 10:00 06/11/24 07:48 40 MG Norepinephrine Bitartrate 16 mg/ Sodium Chloride 250 ml @ 1.875 mls/ hr Q24H IV 06/09/24 14:00 06/11/24 04:52 7.5 MLS/HR Piperacillin Sod/ Tazobactam Sod 100 ml @ 25 mls/hr Q8HR IV 06/09/24 22:00 06/11/24 22:00 25 MLS/HR Vancomycin HCl 100 ml @ 200 mls/hr Q16H IV 06/10/24 14:00 06/11/24 21:52 200 MLS/HR Amiodarone HCl 200 mg Q12HR GT 06/11/24 10:00 06/11/24 10:56 200 MG objective Gen.: Patient lying in bed in medical ICU. Intubated on mechanical ventilator. Head: Normocephalic, atraumatic. Eyes: PERRLA. Ears: Normal external anatomy. Throat: Endotracheal tube and orogastric tube in place. Neck: Supple, trachea midline. Chest: Transmitted breath sounds bilaterally. Decreased air entry bilaterally. No wheezing. Bibasilar crackles. Cardiovascular: Positive S1, positive S2. Regular rate and rhythm. Abdomen: Positive bowel sounds in all 4 quadrants. Soft, nontender, nondistended. : Ribeiro in place. Normal external genitalia. Rectal: Deferred. Skin: Warm, dry. Intact. Extremities: 2+ radial pulses bilaterally. No lower extremity edema. Neuro: Off sedation laboratory and microbiology Laboratory Tests 06/11/24 04:18 Test 06/11/24 04:18 Range/Units Serum Glucose 250 H 74-106 mg/dL Assessment/Plan Impression: Acute hypoxic respiratory failure secondary to pneumonia On mechanical ventilator Pneumonia likely Gram-negative Sepsis Pleural effusion Atelectasis Generalized weakness Anemia Lactic acidosis Metabolic acidosis Events: Remains on vent support Vent settings; AC mode with RR 16, VT 450, PEEP 5, FiO2 30% ABG reviewed, notable for alkalemia CXR reviewed, devices in place. Persistent airspace opacities in the perihilar region. Probable small bilateral pleural effusions. No pneumothorax. Off Versed since 10 AM. On pressors for hemodynamic support Levophed 4 mcg/min Titrate to keep mean arterial pressure greater than 65 mmHg. Continue antibiotics Follow up cultures Incentive spirometry Tube feeds for nutritional support Amiodarone drip. Head of bed elevation Aspiration precautions Awaiting for mental status to improve for CPAP. Labs and imaging reviewed. Rest of plan as noted below. Plan: S/p intubation On mechanical ventilator Vent settings; AC mode with RR 16, VT 450, PEEP 5, FiO2 30% Head of bed elevation Aspiration precautions IV steroids Continue antibiotics Follow up cultures. On pressors for hemodynamic support Titrate to keep mean arterial pressure greater than 65 mmHg. Monitor renal function Monitor electrolytes. Supplement as necessary. Monitor ins and outs. DVT prophylaxis with Lovenox GI prophylaxis with Pepcid Condition: Critical Prognosis: Poor given multiple comorbidities. Rest of plan per hospitalist and other consultants. A total of 35 minutes of critical care time was spent reviewing the patient record, examining the patient, making a diagnostic and therapeutic plan, discussing this plan with the medical personnel, following up on diagnostic studies and following the patient for clinical stability excluding any and all procedures. At least 50% of this time was spent in direct, [id number] contact. Thank you ANN Rocha for allowing me to participate in this patient's care. Further recommendations will depend on patient's clinical course. Please do not hesitate to contact me if you have any questions or concerns. This medical document was created using an electronic medical record system with [employer] dictation system. Although this document has been carefully reviewed, there may still be some phonetic and typographical errors. These areas are purely typographical due to imperfections of the software programs, and do not reflect any compromise in the patient's medical care. Plan discussed with: Other (GIO Lewis) Critical Care Time(min): 35 CHAU COHEN MD Jun 11, 2024 23:21
[2024-06-12] VITALS (96 sets, daily range): BP systolic 81–155; BP diastolic 50–110; PULSE 54–96; RESP 11–27; TEMP 96.8–99.1; O2SAT 94–100
[2024-06-12 03:09] LABS: Basophils # (auto) 0 10 ^3/uL (0-0.2); Basophils % (auto) 0.1 % (0.0-2.0); Eosinophils # (auto) 0 10 ^3/uL (0-0.8); Hematocrit 28.6 % (36.0-46.0); Hemoglobin 8.7 g/dL (12.2-16.2); Lymphocytes # (auto) 0.6 10 ^3/uL (0.4-5.4); Lymphocytes % (auto) 3.1 % (10.0-50.0); Mean Corpuscular Hemoglobin 26.8 pg (28.0-32.0); Mean Corpuscular Hgb Conc. 30.5 g/dL (32.0-36.0); Mean Corpuscular Volume 87.9 fL (80.0-100.0); Monocytes # (auto) 0.4 10 ^3/uL (0-1.3); Monocytes % (auto) 2.2 % (0.0-12.0); Neutrophils # (auto) 18.5 10 ^3/uL (1.6-8.6); Neutrophils % (auto) 94.6 % (37.0-80.0); Nucleated Red Blood Cells % 0.1 %; Platelet Count (auto) 302 10^3/uL (140-450); Red Blood Cells 3.25 10^6/uL (4.0-5.20); White Blood Cell 19.6 10^3/uL (4.4-10.8)
[2024-06-12 03:12] LABS: Sodium 142 mmol/L (136-145)
[2024-06-12 03:13] LABS: Anion Gap 8 (5-15); Calcium 8.9 mg/dL (8.7-10.4)
[2024-06-12 03:18] LABS: BUN/Creatinine Ratio 26.5 (10.0-20.0)
[2024-06-12 03:20] LABS: Blood Urea Nitrogen 26 mg/dL (9-23); Carbon Dioxide 20 mmol/L (20-31); Chloride 114 mmol/L (98-107); Glucose 152 mg/dL (74-106)
--- NOTE | 2024-06-12 06:37 | DVH ---
CHEST RADIOGRAPH Indication: Respiratory Failure Technique: Single frontal view of the chest was obtained Comparison: XY CHEST PORTABLE on DOS: 06/11/24 FINDINGS: Lines and Tubes: Right central venous catheter is unchanged in position. The enteric tube courses bel ow the left hemidiaphragm and the tip extends outside the field of view. The endotracheal tube termin ates 2.3 cm above the blanca. Lungs: Opacity in the left mid lung. Pleura: Left pleural effusion. Trace right pleural effusion. No pneumothorax. Cardiomediastinal contours: Unremarkable Bones: No acute osseous abnormality. IMPRESSION: 1. Appropriate position of the support lines and tubes. 2. Opacity in the left mid lung. Bilateral pleural effusions.
[2024-06-12 06:50] LABS: Base Excess -1.6 mmol/L (-2.0-3.0)
--- NOTE | 2024-06-12 08:58 | DVHPN2 ---
Subjective Patient intubated and sedated. Reviewed: Care Plan, H&P, Labs, Medications Changes from previous H/P or p: No Changes General: Per HPI Eyes: No Pain, No Vision change, No Conjunctivae inflammation, No Eyelid inflammation, No Other, No Redness ENT: No Ear pain, No Ear discharge, No Nose pain, No Nose discharge, No Nose congestion, No Mouth pain, No Mouth swelling, No Throat pain, No Throat swelling, No Other Cardiovascular: No Chest Pain, No Palpitations, No Orthopnea, No Paroxysmal Noc. Dyspnea, No Edema, No Lt Headedness, No Other Respiratory: Cough; No Dry; Shortness of breath, SOB with excertion; No Wheezing, No Hemoptysis, No Pleuritic Pain, No Sputum; Other (SOB at rest) Gastrointestinal: No Nausea, No Vomiting, No Abdominal Pain, No Diarrhea, No Constipation, No Melena, No Hematochezia, No Other Genitourinary: No Dysuria, No Frequency, No Incontinence, No Hematuria, No Retention, No Other Musculoskeletal: No other, No neck pain, No shoulder pain, No arm pain, No back pain, No hand pain, No leg pain, No foot pain Skin: No Rash, No Lesions, No Jaundice, No Bruising, No Other Objective Vitals Vital Signs Date Time Temp Pulse Resp B/P (MAP) Pulse Ox O2 Delivery O2 Flow Rate FiO2 06/12/24 07:58 88 21 95/65 (75) 100 30 06/12/24 06:15 98.6 209.5 06/12/24 05:49 Mechanical Ventilator+ Intake/Output Intake and Output 06/12/24 07:00 Intake Total 672.709 ml Output Total 576 ml Balance 96.709 ml Intake Oral 50 ml IV Total 572.709 ml Tube Feeding 50 ml Output Urine Total 575 ml Stool Total 1 ml General Appearance: moderate distress, Other (Extubated, sedated) HEENT: Atraumatic, PERRLA Lungs: Clear to auscultation, Normal air movement Cardiovascular: Normal S1, Normal S2, Other (Atrial fibrillation with controlled rate) Abdomen: Normal bowel sounds, Soft Musculoskeletal: Normal sensory function, Normal motor function Psych/Mental Status: Mood NL (Anxious) Medications Current Medications Medications Dose Ordered Sig/Ben Route Start Time Stop Time Status Last Admin Dose Admin Albuterol 2.5 mg Q4HPRN PRN NEB 06/07/24 23:15 06/10/24 18:33 2.5 MG Ipratropium [place] 0.5 mg Q4HPRN PRN NEB 06/07/24 23:15 06/10/24 18:33 0.5 MG Vancomycin HCl 0 ml @ 0 mls/hr UD IV 06/07/24 23:15 Acetaminophen/ Hydrocodone Bitart 1 tab Q4HP PRN PO 06/07/24 23:15 Ondansetron HCl 4 mg Q4HP PRN IV 06/07/24 23:15 Docusate Sodium 100 mg BIDPRN PRN PO 06/07/24 23:15 Acetaminophen 650 mg Q6HP PRN PO 06/07/24 23:15 Nitroglycerin 0.4 mg Q5MINP PRN SL 06/07/24 23:15 Morphine Sulfate 2 mg Q30M PRN IV 06/07/24 23:15 Enoxaparin Sodium 40 mg DAILY SC 06/08/24 10:00 06/11/24 07:48 40 MG Midazolam HCl 50 ml @ 1 mls/hr Q24H IV 06/09/24 07:30 06/11/24 05:08 7 MLS/HR Methylprednisolone Sodium Succinate 40 mg Q12HR IV 06/09/24 10:00 06/11/24 21:53 40 MG Enteral Nutritional Formula 1,000 ml 30ML/HR GT 06/09/24 09:45 06/11/24 06:06 1,000 ML Pantoprazole Sodium 40 mg DAILY IV 06/09/24 10:00 06/11/24 07:48 40 MG Norepinephrine Bitartrate 16 mg/ Sodium Chloride 250 ml @ 1.875 mls/ hr Q24H IV 06/09/24 14:00 06/11/24 04:52 7.5 MLS/HR Piperacillin Sod/ Tazobactam Sod 100 ml @ 25 mls/hr Q8HR IV 06/09/24 22:00 06/12/24 06:06 25 MLS/HR Vancomycin HCl 100 ml @ 200 mls/hr Q16H IV 06/10/24 14:00 06/11/24 21:52 200 MLS/HR Amiodarone HCl 200 mg Q12HR GT 06/12/24 10:00 Dexmedetomidine HCl 400 mcg/ Dextrose 100 ml @ 2.19 mls/hr Q24H IV 06/12/24 08:45 Laboratory Results Laboratory Tests 06/12/24 02:04 Chemistry Test 06/12/24 02:04 Calcium Level 8.9 mg/dL (8.7-10.4) Urinalysis Test 06/08/24 03:50 Urine Color Straw (Yellow) Urine Clarity Clear (Clear) Urine pH 5.5 (5.0-9.0) Urine Specific [place] 1.005 (1.001-1.035) Urine Protein Negative (Negative) Urine Ketones Negative (Negative) Urine Blood 2+ /uL (Negative) H Urine Nitrite Negative (Negative) Urine Bilirubin Negative (Negative) Urine Urobilinogen Normal mg/dL (Negative) Urine Leukocyte Esterase Negative /uL (Negative) Urine RBC 1 /hpf (0 - 4) Urine WBC 3 /hpf (0 - 5) Urine Squamous Epithelial Cells Few /hpf (<5) Urine Bacteria Few /hpf (None Seen) H Urine Hyaline Casts Few /lpf (0 - 2) Urine Mucus Few (None Seen) Urine Yeast (Budding) Occasional /hpf (None Urine Glucose Normal mg/dL (Normal) Blood Gas Results Test 06/12/24 06:40 Arterial Blood pH 7.550 (7.350-7.450) FiO2 % 30.0 Microbiology Microbiology Date/Time Source Procedure Growth Status 06/09/24 07:45 Sputum Gram Stain - Final Resulted 06/09/24 07:45 Sputum Respiratory Culture - Preliminary Resulted 06/08/24 03:50 Voided Urine Urine Culture - Final Complete 06/07/24 20:55 Blood Blood Culture - Preliminary NO GROWTH AFTER 72 HOURS OF INCUBATION. 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 Attempted to CPAP this a.m.. Patient became tachypneic. We will order Precedex. -CPAP trial, weaned sedation -continue tube feeding -taper IV Solu-Medrol -continue vasopressor therapy -antibiotic therapy: Zosyn, vancomycin -bronchodilators -oneal cultures -repeat labs, chest x-ray, ABG in a.m. -discussed plan of care with the patient was daughter was bedside. All questions answered. Critical care time spent with patient discussing and formulating plan of care: 40 minutes. This does not include time spent performing procedures. This medical document was created using an electronic medical record system with [employer] dictation system. Although this document has been carefully reviewed, there may still be some phonetic and typographical errors. These areas are purely typographical due to imperfections of the software programs, and do not reflect any compromise in the patient's medical care. Plan discussed with: Patient, Other (RN) My Orders Orders - ED BRADLEY NP Procedure Category Date Status Time * Wound Consult CONS 06/11/24 Transmitted Amiodarone Tablet PHA 06/12/24 In Process (Cordarone Tablet) 10:00 D5w 5% (Dextrose 5%) PHA 06/12/24 In Process W/Dexmedetomidine 08:45 Date of Service: Jun 12, 2024 Billing Provider: ED BRADLEY NP Common Visit Codes: [id number] CARE 30-74 MIN ED BRADLEY NP Jun 12, 2024 08:58
[2024-06-12] MEDS: AMIODARONE HCL 200 MG TAB GT SCH (10:59)
[2024-06-12] MEDS: methylPREDNISolone SOD SUCC 40 MG/ML VL IV SCH (12:02)
--- NOTE | 2024-06-12 21:50 | DVHPN2 ---
Progress Note - Dictate Date Seen: Jun 12, 2024 Medical Necessity Reason Pt with a Central, PICC or Fol: Yes The following are medically ne: Ribeiro Catheter Reason for ribeiro catheter: Strict I&O Subjective Patient seen and examined at bedside. intubated on mechanical ventilator. Overnight events reviewed. vital signs Vital Sign Date Time Temp Pulse Resp B/P (MAP) Pulse Ox O2 Delivery O2 Flow Rate FiO2 06/12/24 20:17 77 16 155/110 (125) 99 30 06/12/24 20:15 97.0 206.6 06/12/24 20:00 Mechanical Ventilator+ Total Intake and Output 06/11/24 06/11/24 06/12/24 15:00 23:00 07:00 Intake Total 187.709 ml 380.00 ml 105.00 ml Output Total 301 ml 275 ml Balance 187.709 ml 79.00 ml -170.00 ml medications Current Medications Medications Dose Ordered Sig/Ben Route Start Time Stop Time Status Last Admin Dose Admin Albuterol 2.5 mg Q4HPRN PRN NEB 06/07/24 23:15 06/10/24 18:33 2.5 MG Ipratropium [place] 0.5 mg Q4HPRN PRN NEB 06/07/24 23:15 06/10/24 18:33 0.5 MG Vancomycin HCl 0 ml @ 0 mls/hr UD IV 06/07/24 23:15 Acetaminophen/ Hydrocodone Bitart 1 tab Q4HP PRN PO 06/07/24 23:15 Ondansetron HCl 4 mg Q4HP PRN IV 06/07/24 23:15 Docusate Sodium 100 mg BIDPRN PRN PO 06/07/24 23:15 Acetaminophen 650 mg Q6HP PRN PO 06/07/24 23:15 Nitroglycerin 0.4 mg Q5MINP PRN SL 06/07/24 23:15 Morphine Sulfate 2 mg Q30M PRN IV 06/07/24 23:15 Enoxaparin Sodium 40 mg DAILY SC 06/08/24 10:00 06/12/24 10:59 40 MG Midazolam HCl 50 ml @ 1 mls/hr Q24H IV 06/09/24 07:30 06/11/24 05:08 7 MLS/HR Enteral Nutritional Formula 1,000 ml 30ML/HR GT 06/09/24 09:45 1/1/25 06:06 1,000 ML Pantoprazole Sodium 40 mg DAILY IV 06/09/24 10:00 06/12/24 10:58 40 MG Norepinephrine Bitartrate 16 mg/ Sodium Chloride 250 ml @ 1.875 mls/ hr Q24H IV 06/09/24 14:00 06/11/24 04:52 7.5 MLS/HR Piperacillin Sod/ Tazobactam Sod 100 ml @ 25 mls/hr Q8HR IV 06/09/24 22:00 06/12/24 21:12 25 MLS/HR Amiodarone HCl 200 mg Q12HR GT 06/12/24 10:00 06/12/24 21:12 200 MG Dexmedetomidine HCl 400 mcg/ Dextrose 100 ml @ 2.19 mls/hr Q24H IV 06/12/24 08:45 Methylprednisolone Sodium Succinate 40 mg DAILY IV 06/12/24 10:00 06/12/24 12:02 40 MG objective Gen.: Patient lying in bed in medical ICU. Intubated on mechanical ventilator. Head: Normocephalic, atraumatic. Eyes: PERRLA. Ears: Normal external anatomy. Throat: Endotracheal tube and orogastric tube in place. Neck: Supple, trachea midline. Chest: Transmitted breath sounds bilaterally. Decreased air entry bilaterally. No wheezing. Bibasilar crackles. Cardiovascular: Positive S1, positive S2. Regular rate and rhythm. Abdomen: Positive bowel sounds in all 4 quadrants. Soft, nontender, nondistended. : Ribeiro in place. Normal external genitalia. Rectal: Deferred. Skin: Warm, dry. Intact. Extremities: 2+ radial pulses bilaterally. No lower extremity edema. Neuro: Off sedation laboratory and microbiology Laboratory Tests 06/12/24 02:04 Test 06/12/24 02:04 Range/Units Serum Glucose 152 H 74-106 mg/dL Assessment/Plan Impression: Acute hypoxic respiratory failure secondary to pneumonia On mechanical ventilator Pneumonia likely Gram-negative Sepsis Pleural effusion Atelectasis Generalized weakness Anemia Lactic acidosis Metabolic acidosis Events: Remains on vent support Vent settings; AC mode with RR 16, VT 450, PEEP 5, FiO2 30% ABG reviewed, notable for alkalemia CXR reviewed, devices in place. Opacity in the left mid lung. Bilateral pleural effusions. No pneumothorax. Off sedation since 1 PM on 06/11/24. On pressors for hemodynamic support Levophed 4 mcg/min Titrate to keep mean arterial pressure greater than 65 mmHg. Continue antibiotics Urine culture shows no growth x48 hours Sputum culture shows no growth after 3 days Blood culture shows no growth after 5 days On PO Amiodarone Tube feeds for nutritional support Head of bed elevation Aspiration precautions CPAP with PS 20, PEEP of 5 to achieve tidal volume 350-400 mL for pulmonary exercising. Labs and imaging reviewed. Rest of plan as noted below. Plan: S/p intubation On mechanical ventilator Vent settings; AC mode with RR 16, VT 450, PEEP 5, FiO2 30% Head of bed elevation Aspiration precautions IV steroids - tapered Continue antibiotics Follow up cultures. On pressors for hemodynamic support Titrate to keep mean arterial pressure greater than 65 mmHg. Monitor renal function Monitor electrolytes. Supplement as necessary. Monitor ins and outs. DVT prophylaxis with Lovenox GI prophylaxis with Pepcid Condition: Critical Prognosis: Poor given multiple comorbidities. Rest of plan per hospitalist and other consultants. A total of 35 minutes of critical care time was spent reviewing the patient record, examining the patient, making a diagnostic and therapeutic plan, discussing this plan with the medical personnel, following up on diagnostic studies and following the patient for clinical stability excluding any and all procedures. At least 50% of this time was spent in direct, [id number] contact. Thank you ANN Rocha for allowing me to participate in this patient's care. Further recommendations will depend on patient's clinical course. Please do not hesitate to contact me if you have any questions or concerns. This medical document was created using an electronic medical record system with [employer] dictation system. Although this document has been carefully reviewed, there may still be some phonetic and typographical errors. These areas are purely typographical due to imperfections of the software programs, and do not reflect any compromise in the patient's medical care. Plan discussed with: Other (GIO Veras) Critical Care Time(min): 35 CHAU COHEN MD Jun 12, 2024 21:50
[2024-06-13] VITALS (112 sets, daily range): BP systolic 81–138; BP diastolic 49–101; PULSE 53–113; RESP 10–29; TEMP 79.5–99.1; O2SAT 82–100
[2024-06-13 03:05] LABS: QuantiFERON-TB Gold Plus Indeterminate (Negative)
[2024-06-13 03:46] LABS: Basophils # (auto) 0 10 ^3/uL (0-0.2); Basophils % (auto) 0.1 % (0.0-2.0); Eosinophils # (auto) 0 10 ^3/uL (0-0.8); Hematocrit 27.8 % (36.0-46.0); Hemoglobin 8.8 g/dL (12.2-16.2); Lymphocytes # (auto) 0.9 10 ^3/uL (0.4-5.4); Lymphocytes % (auto) 4.9 % (10.0-50.0); Mean Corpuscular Hemoglobin 27.7 pg (28.0-32.0); Mean Corpuscular Hgb Conc. 31.5 g/dL (32.0-36.0); Monocytes # (auto) 0.7 10 ^3/uL (0-1.3); Monocytes % (auto) 3.6 % (0.0-12.0); Neutrophils # (auto) 16.6 10 ^3/uL (1.6-8.6); Neutrophils % (auto) 91.4 % (37.0-80.0); Nucleated Red Blood Cells % 0.1 %; Platelet Count (auto) 274 10^3/uL (140-450); Red Blood Cells 3.16 10^6/uL (4.0-5.20); Red Cell Distribution Width 17.5 % (11.8-14.3); White Blood Cell 18.2 10^3/uL (4.4-10.8)
[2024-06-13 03:49] LABS: Anion Gap 8 (5-15); Calcium 9.2 mg/dL (8.7-10.4); Carbon Dioxide 21 mmol/L (20-31); Potassium 3.6 mmol/L (3.5-5.1); Sodium 141 mmol/L (136-145)
[2024-06-13 03:55] LABS: Magnesium 1.9 mg/dL (1.6-2.6)
[2024-06-13 04:02] LABS: Blood Urea Nitrogen 25 mg/dL (9-23); Chloride 112 mmol/L (98-107); Glucose 134 mg/dL (74-106)
--- NOTE | 2024-06-13 05:47 | DVH ---
CHEST RADIOGRAPH Indication: vent Technique: Single frontal view of the chest was obtained COMPARISON: XY CHEST PORTABLE on DOS: 06/12/24, XY CHEST PORTABLE on DOS: 06/11/24, XY CHEST PORTABLE on DOS: 06/10/24, XY CHEST PORTABLE on DOS: 06/09/24, XY CHEST PORTABLE on DOS: 06/09/24 FINDINGS: Lines and Tubes: Endotracheal tube, enteric catheter and right central venous catheter in satisfactor y position. Lungs: Multifocal airspace disease. Pleura: No effusion. No pneumothorax. Cardiomediastinal contours: Unremarkable Bones: Unremarkable IMPRESSION: Lines and tubes in satisfactory position. No significant interval change.
[2024-06-13 06:25] LABS: Base Excess -3.5 mmol/L (-2.0-3.0)
--- NOTE | 2024-06-13 08:14 | DVHPN2 ---
Subjective Patient was intubated. Opening eyes. Not following commands. Reviewed: Care Plan, H&P, Labs, Medications Changes from previous H/P or p: No Changes General: Per HPI Eyes: No Pain, No Vision change, No Conjunctivae inflammation, No Eyelid inflammation, No Other, No Redness ENT: No Ear pain, No Ear discharge, No Nose pain, No Nose discharge, No Nose congestion, No Mouth pain, No Mouth swelling, No Throat pain, No Throat swelling, No Other Cardiovascular: No Chest Pain, No Palpitations, No Orthopnea, No Paroxysmal Noc. Dyspnea, No Edema, No Lt Headedness, No Other Respiratory: Cough; No Dry; Shortness of breath, SOB with excertion; No Wheezing, No Hemoptysis, No Pleuritic Pain, No Sputum; Other (SOB at rest) Gastrointestinal: No Nausea, No Vomiting, No Abdominal Pain, No Diarrhea, No Constipation, No Melena, No Hematochezia, No Other Genitourinary: No Dysuria, No Frequency, No Incontinence, No Hematuria, No Retention, No Other Musculoskeletal: No other, No neck pain, No shoulder pain, No arm pain, No back pain, No hand pain, No leg pain, No foot pain Skin: No Rash, No Lesions, No Jaundice, No Bruising, No Other Objective Vitals Vital Signs Date Time Temp Pulse Resp B/P (MAP) Pulse Ox O2 Delivery O2 Flow Rate FiO2 06/13/24 08:02 20 100 Mechanical Ventilator+ 30 30 06/13/24 08:00 98.4 95 111/69 (83) 209.1 Intake/Output Intake and Output 06/13/24 07:00 Intake Total 403.000 ml Output Total 253 ml Balance 150.000 ml Intake Oral 50 ml IV Total 353.000 ml Output Urine Total 250 ml Stool Total 3 ml General Appearance: mild distress, Other (Extubated, sedated) HEENT: Atraumatic, PERRLA Lungs: Clear to auscultation, Normal air movement Cardiovascular: Normal S1, Normal S2, Other (Atrial fibrillation with controlled rate) Abdomen: Normal bowel sounds, Soft Musculoskeletal: Normal sensory function, Normal motor function Extremities: Other (Swelling to bilateral upper extremities) Skin: Dry, Intact Psych/Mental Status: Mood NL (Anxious) Medications Current Medications Medications Dose Ordered Sig/Ben Route Start Time Stop Time Status Last Admin Dose Admin Albuterol 2.5 mg Q4HPRN PRN NEB 06/07/24 23:15 06/10/24 18:33 2.5 MG Ipratropium [place] 0.5 mg Q4HPRN PRN NEB 06/07/24 23:15 06/10/24 18:33 0.5 MG Vancomycin HCl 0 ml @ 0 mls/hr UD IV 06/07/24 23:15 Acetaminophen/ Hydrocodone Bitart 1 tab Q4HP PRN PO 06/07/24 23:15 Ondansetron HCl 4 mg Q4HP PRN IV 06/07/24 23:15 Docusate Sodium 100 mg BIDPRN PRN PO 06/07/24 23:15 Acetaminophen 650 mg Q6HP PRN PO 06/07/24 23:15 Nitroglycerin 0.4 mg Q5MINP PRN SL 06/07/24 23:15 Morphine Sulfate 2 mg Q30M PRN IV 06/07/24 23:15 Enoxaparin Sodium 40 mg DAILY SC 06/08/24 10:00 06/13/24 07:46 40 MG Midazolam HCl 50 ml @ 1 mls/hr Q24H IV 06/09/24 07:30 06/11/24 05:08 7 MLS/HR Enteral Nutritional Formula 1,000 ml 30ML/HR GT 06/09/24 09:45 06/11/24 06:06 1,000 ML Pantoprazole Sodium 40 mg DAILY IV 06/09/24 10:00 06/13/24 07:45 40 MG Norepinephrine Bitartrate 16 mg/ Sodium Chloride 250 ml @ 1.875 mls/ hr Q24H IV 06/09/24 14:00 06/11/24 04:52 7.5 MLS/HR Piperacillin Sod/ Tazobactam Sod 100 ml @ 25 mls/hr Q8HR IV 06/09/24 22:00 06/13/24 05:00 25 MLS/HR Amiodarone HCl 200 mg Q12HR GT 06/12/24 10:00 06/13/24 07:46 200 MG Dexmedetomidine HCl 400 mcg/ Dextrose 100 ml @ 2.19 mls/hr Q24H IV 06/12/24 08:45 Methylprednisolone Sodium Succinate 40 mg DAILY IV 06/12/24 10:00 06/13/24 07:45 40 MG Laboratory Results Laboratory Tests 06/13/24 03:15 Chemistry Test 06/13/24 03:15 Calcium Level 9.2 mg/dL (8.7-10.4) Magnesium Level 1.9 mg/dL (1.6-2.6) Urinalysis Test 06/08/24 03:50 Urine Color Straw (Yellow) Urine Clarity Clear (Clear) Urine pH 5.5 (5.0-9.0) Urine Specific [place] 1.005 (1.001-1.035) Urine Protein Negative (Negative) Urine Ketones Negative (Negative) Urine Blood 2+ /uL (Negative) H Urine Nitrite Negative (Negative) Urine Bilirubin Negative (Negative) Urine Urobilinogen Normal mg/dL (Negative) Urine Leukocyte Esterase Negative /uL (Negative) Urine RBC 1 /hpf (0 - 4) Urine WBC 3 /hpf (0 - 5) Urine Squamous Epithelial Cells Few /hpf (<5) Urine Bacteria Few /hpf (None Seen) H Urine Hyaline Casts Few /lpf (0 - 2) Urine Mucus Few (None Seen) Urine Yeast (Budding) Occasional /hpf (None Urine Glucose Normal mg/dL (Normal) Blood Gas Results Test 06/13/24 06:18 Arterial Blood pH 7.463 (7.350-7.450) FiO2 % 30.0 Microbiology Microbiology Date/Time Source Procedure Growth Status 06/09/24 07:45 Sputum Gram Stain - Final Complete 06/09/24 07:45 Sputum Respiratory Culture - Final Complete 06/08/24 03:50 Voided Urine Urine Culture - Final Complete 06/07/24 20:55 Blood Blood Culture - Final NO GROWTH AFTER 5 DAYS OF INCUBATION. 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 Patient currently on CPAP. Respiratory status stable. Patient was still not following commands. Underlying dementia continues to be a challenge. -pulse dose of Lasix -continue vasopressor therapy -antibiotic therapy: Zosyn, vancomycin -bronchodilators -PUD, DVT prophylaxis -oneal cultures : No growth -repeat labs, chest x-ray, ABG in a.m. Critical care time spent with patient discussing and formulating plan of care: 40 minutes. This does not include time spent performing procedures. This medical document was created using an electronic medical record system with [employer] dictation system. Although this document has been carefully reviewed, there may still be some phonetic and typographical errors. These areas are purely typographical due to imperfections of the software programs, and do not reflect any compromise in the patient's medical care. Plan discussed with: Patient, Other (RN) My Orders Orders - ED BRADLEY NP Procedure Category Date Status Time D5w 5% (Dextrose 5%) PHA 06/12/24 In Process W/Dexmedetomidine 08:45 Methylprednisolone PHA 06/12/24 In Process Sod Succ (Solu Medrol 10:00 Basic Metabolic Panel LAB 06/14/24 Verified 05:00 Basic Metabolic Panel LAB 06/15/24 Verified 05:00 Complete Blood Count LAB 06/14/24 Verified 05:00 Complete Blood Count LAB 06/15/24 Verified 05:00 Abg W/ Co-Ox RT 06/13/24 Logged 04:00 Chest Portable XY 06/14/24 Logged 05:00 Chest Portable XY 06/15/24 Logged 05:00 * Dietary Consult CONS 06/12/24 Transmitted 17:04 Cleanse Wound With FRANKY 06/12/24 In Process Wound Clean 11:02 Code Status CODE 06/13/24 Transmitted 07:42 Furosemide Injection PHA 06/13/24 Logged (Lasix Injection) 08:15 Date of Service: Jun 13, 2024 Billing Provider: ED BRADLEY NP Common Visit Codes: [id number] CARE 30-74 MIN ED BRADLEY NP Jun 13, 2024 08:14
[2024-06-13] MEDS: FUROSEMIDE 20 MG/2 ML VIAL IV ONE (08:41)
[2024-06-13] MEDS: NOREPINEPHRINE BITARTRATE 16 MG in SODIUM CHL 0.9% 234 ML IV SCH (09:27)
[2024-06-13 13:43] LABS: Base Excess -1.3 mmol/L (-2.0-3.0)
--- NOTE | 2024-06-13 15:14 | CODING ---
Date of Service: Jun 13, 2024 Billing Provider: ED BRADLEY NP Common Visit Codes: [id number] CARE-EACH +30MIN ED BRADLEY NP Jun 13, 2024 15:14
[2024-06-13 16:33] LABS: Alanine Aminotransferase 20 U/L (7-40); Alkaline Phosphatase 85 U/L (46-116); Anion Gap 8 (5-15); Aspartate Aminotransferase 29 U/L (13-40); BUN/Creatinine Ratio 25.5 (10.0-20.0); Calcium 8.7 mg/dL (8.7-10.4); Carbon Dioxide 24 mmol/L (20-31); Magnesium 1.9 mg/dL (1.6-2.6); Sodium 144 mmol/L (136-145)
[2024-06-13 16:34] LABS: Albumin 2.4 g/dL (3.2-4.8); Bilirubin, Total 0.3 mg/dL (0.2-1.0); Blood Urea Nitrogen 28 mg/dL (9-23); Chloride 112 mmol/L (98-107); Glucose 134 mg/dL (74-106); Potassium 3.4 mmol/L (3.5-5.1); Total Protein 4.7 g/dL (5.7-8.2)
[2024-06-13] MEDS: POTASSIUM CHL 20MEQ/100ML 100 ML IV SCH (17:05)
--- NOTE | 2024-06-13 23:31 | DVHPN2 ---
Progress Note - Dictate Date Seen: Jun 13, 2024 Medical Necessity Reason Pt with a Central, PICC or Fol: Yes The following are medically ne: Ribeiro Catheter Reason for ribeiro catheter: Strict I&O Subjective Patient seen and examined at bedside. S/p extubation, remains on supplemental oxygen Overnight events reviewed. vital signs Vital Sign Date Time Temp Pulse Resp B/P (MAP) Pulse Ox O2 Delivery O2 Flow Rate FiO2 06/13/24 22:45 97.9 93 23 92 208.2 06/13/24 22:00 Nasal Cannula* 5 35 Cool Aerosol 35 Total Intake and Output 06/12/24 06/12/24 06/13/24 15:00 23:00 07:00 Intake Total 97.50 ml 150.875 ml 154.625 ml Output Total 127 ml 126 ml Balance 97.50 ml 23.875 ml 28.625 ml medications Current Medications Medications Dose Ordered Sig/Ben Route Start Time Stop Time Status Last Admin Dose Admin Albuterol 2.5 mg Q4HPRN PRN NEB 06/07/24 23:15 06/10/24 18:33 2.5 MG Ipratropium [place] 0.5 mg Q4HPRN PRN NEB 06/07/24 23:15 06/10/24 18:33 0.5 MG Vancomycin HCl 0 ml @ 0 mls/hr UD IV 06/07/24 23:15 Acetaminophen/ Hydrocodone Bitart 1 tab Q4HP PRN PO 06/07/24 23:15 Ondansetron HCl 4 mg Q4HP PRN IV 06/07/24 23:15 Docusate Sodium 100 mg BIDPRN PRN PO 06/07/24 23:15 Acetaminophen 650 mg Q6HP PRN PO 06/07/24 23:15 Nitroglycerin 0.4 mg Q5MINP PRN SL 06/07/24 23:15 Morphine Sulfate 2 mg Q30M PRN IV 06/07/24 23:15 Enoxaparin Sodium 40 mg DAILY SC 06/08/24 10:00 06/13/24 07:46 40 MG Midazolam HCl 50 ml @ 1 mls/hr Q24H IV 06/09/24 07:30 06/11/24 05:08 7 MLS/HR Enteral Nutritional Formula 1,000 ml 30ML/HR GT 06/09/24 09:45 06/11/24 06:06 1,000 ML Pantoprazole Sodium 40 mg DAILY IV 06/09/24 10:00 06/13/24 07:45 40 MG Piperacillin Sod/ Tazobactam Sod 100 ml @ 25 mls/hr Q8HR IV 06/09/24 22:00 06/13/24 21:32 25 MLS/HR Amiodarone HCl 200 mg Q12HR GT 06/12/24 10:00 06/13/24 21:32 200 MG Dexmedetomidine HCl 400 mcg/ Dextrose 100 ml @ 2.19 mls/hr Q24H IV 06/12/24 08:45 Methylprednisolone Sodium Succinate 40 mg DAILY IV 06/12/24 10:00 06/13/24 07:45 40 MG Norepinephrine Bitartrate 16 mg/ Sodium Chloride 250 ml @ 0.938 mls/ hr Q24H IV 06/13/24 08:30 06/13/24 21:44 0.938 MLS/HR Furosemide 20 mg DAILY IV 06/14/24 10:00 objective Gen.: Patient lying in bed in no apparent distress. On supplemental oxygen. Head: Normocephalic, atraumatic. Eyes: EOMI/PERRLA. Ears: Normal hearing. Normal anatomy. Neck/trachea: Trachea midline, supple. Nose: Normal external anatomy. Mouth: Moist mucous membranes. Chest: Decreased air entry bilaterally. No wheezing or rhonchi. Cardiovascular: Positive S1, positive S2. Regular rate and rhythm. Abdomen: Positive bowel sounds in all 4 quadrants. Soft, non-tender, non- distended. : Deferred. Rectal: Deferred. Skin: Warm, dry. Intact. Extremities: 2+ radial pulses bilaterally. No lower extremity edema. Neuro: Awake, alert, oriented x3. No gross motor or sensory deficits. Cranial nerves II through XII intact. Gait not assessed. laboratory and microbiology Laboratory Tests 06/13/24 15:56 06/13/24 03:15 Test 06/13/24 15:56 Range/Units Serum Glucose 134 H 74-106 mg/dL Assessment/Plan Impression: Acute hypoxic respiratory failure secondary to pneumonia On mechanical ventilator Pneumonia likely Gram-negative Sepsis Pleural effusion Atelectasis Generalized weakness Anemia Lactic acidosis Metabolic acidosis Events: Patient is s/p extubation today Currently on supplemental O2 at 5 LPM NC Taper O2 as tolerated Off sedation since 1 PM on 06/11/24. On pressors for hemodynamic support Levophed 1 mcg/min Titrate to keep mean arterial pressure greater than 65 mmHg. Improved pressor requirements Continue antibiotics On PO Amiodarone Tube feeds for nutritional support Head of bed elevation Aspiration precautions Labs and imaging reviewed. Rest of plan as noted below. Plan: S/p extubation Supplemental oxygen Titrate to keep O2 sats above 90%. Head of bed elevation Aspiration precautions IV steroids - tapered Continue antibiotics Follow up cultures. Urine culture shows no growth x48 hours Sputum culture shows no growth after 3 days Blood culture shows no growth after 5 days On pressors for hemodynamic support Titrate to keep mean arterial pressure greater than 65 mmHg. Monitor renal function Monitor electrolytes. Supplement as necessary. Monitor ins and outs. DVT prophylaxis with Lovenox GI prophylaxis with Pepcid Condition: Critical Prognosis: Poor given multiple comorbidities. Rest of plan per hospitalist and other consultants. A total of 35 minutes of critical care time was spent reviewing the patient record, examining the patient, making a diagnostic and therapeutic plan, discussing this plan with the medical personnel, following up on diagnostic studies and following the patient for clinical stability excluding any and all procedures. At least 50% of this time was spent in direct, [id number] contact. Thank you ANN Rocha for allowing me to participate in this patient's care. Further recommendations will depend on patient's clinical course. Please do not hesitate to contact me if you have any questions or concerns. This medical document was created using an electronic medical record system with [employer] dictation system. Although this document has been carefully reviewed, there may still be some phonetic and typographical errors. These areas are purely typographical due to imperfections of the software programs, and do not reflect any compromise in the patient's medical care. Dietary Evaluation Review Comments: Jevvity 30ml/hr providing 40 g pro 864 kcal, supporting 93% of patients' needs for protein and 80% for energy. Reassess after pt is off vent. Expected Outcomes/Goals: meeting 75% of pt's energy needs Plan discussed with: Other (GIO Gaston) Critical Care Time(min): 35 CHAU COHEN MD Jun 13, 2024 23:31
[2024-06-14] VITALS (95 sets, daily range): BP systolic 79–125; BP diastolic 47–75; PULSE 50–96; RESP 12–23; TEMP 80.1–98.6; O2SAT 92–100
[2024-06-14 04:17] LABS: Basophils # (auto) 0 10 ^3/uL (0-0.2); Basophils % (auto) 0.1 % (0.0-2.0); Eosinophils # (auto) 0 10 ^3/uL (0-0.8); Hematocrit 26.1 % (36.0-46.0); Hemoglobin 8.4 g/dL (12.2-16.2); Mean Corpuscular Volume 87.3 fL (80.0-100.0); Monocytes # (auto) 0.6 10 ^3/uL (0-1.3); Monocytes % (auto) 3.9 % (0.0-12.0); Neutrophils # (auto) 14.8 10 ^3/uL (1.6-8.6); Nucleated Red Blood Cells % 0.2 %; Platelet Count (auto) 258 10^3/uL (140-450); Red Blood Cells 2.99 10^6/uL (4.0-5.20); Red Cell Distribution Width 17.9 % (11.8-14.3); White Blood Cell 16.5 10^3/uL (4.4-10.8)
[2024-06-14 04:32] LABS: Potassium 3.6 mmol/L (3.5-5.1); Sodium 144 mmol/L (136-145)
[2024-06-14 04:33] LABS: Anion Gap 8 (5-15); Calcium 9.2 mg/dL (8.7-10.4); Carbon Dioxide 23 mmol/L (20-31)
[2024-06-14 04:38] LABS: BUN/Creatinine Ratio 21.2 (10.0-20.0); Blood Urea Nitrogen 24 mg/dL (9-23); Chloride 113 mmol/L (98-107); Glucose 94 mg/dL (74-106)
[2024-06-14 04:39] LABS: Magnesium 2.1 mg/dL (1.6-2.6)
--- NOTE | 2024-06-14 05:57 | DVH ---
CHEST RADIOGRAPH Indication: pna Technique: Single frontal view of the chest was obtained Comparison: XY CHEST PORTABLE on DOS: 06/13/24, XY CHEST PORTABLE on DOS: 06/12/24, XY CHEST PORTABLE on DOS: 06/11/24 IMPRESSION: There has been development of new small to moderate left pleural effusion and airspace opacity in the left lung base which may be on the basis of aspiration. Interval extubation and removal of the enteric tube. Right IJ catheter tip is unchanged in the regio n of the right atrium. Patchy appears stools opacities in the right lung appear similar. No discrete pneumothorax.
[2024-06-14] MEDS: FUROSEMIDE 20 MG/2 ML VIAL IV SCH (07:59)
--- NOTE | 2024-06-14 15:42 | DVHPN2 ---
Reviewed: Care Plan, H&P, Labs, Medications Changes from previous H/P or p: No Changes General: Per HPI Eyes: No Pain, No Vision change, No Conjunctivae inflammation, No Eyelid inflammation, No Other, No Redness ENT: No Ear pain, No Ear discharge, No Nose pain, No Nose discharge, No Nose congestion, No Mouth pain, No Mouth swelling, No Throat pain, No Throat swelling, No Other Cardiovascular: No Chest Pain, No Palpitations, No Orthopnea, No Paroxysmal Noc. Dyspnea, No Edema, No Lt Headedness, No Other Respiratory: Cough; No Dry; Shortness of breath, SOB with excertion; No Wheezing, No Hemoptysis, No Pleuritic Pain, No Sputum; Other (SOB at rest) Gastrointestinal: No Nausea, No Vomiting, No Abdominal Pain, No Diarrhea, No Constipation, No Melena, No Hematochezia, No Other Genitourinary: No Dysuria, No Frequency, No Incontinence, No Hematuria, No Retention, No Other Musculoskeletal: No other, No neck pain, No shoulder pain, No arm pain, No back pain, No hand pain, No leg pain, No foot pain Skin: No Rash, No Lesions, No Jaundice, No Bruising, No Other Objective Vitals Vital Signs Date Time Temp Pulse Resp B/P (MAP) Pulse Ox O2 Delivery O2 Flow Rate FiO2 06/14/24 15:15 97.0 67 16 105/58 (74) 98 206.6 06/14/24 14:02 Nasal Cannula* 3 35 Cool Aerosol 35 Intake/Output Intake and Output 06/14/24 07:00 Intake Total 491.669 ml Output Total 1951 ml Balance -1459.331 ml Intake Oral 50 ml IV Total 441.669 ml Output Urine Total 1950 ml Stool Total 1 ml # Bowel Movements 1 General Appearance: mild distress, Other (Extubated, sedated) HEENT: Atraumatic, PERRLA Lungs: Clear to auscultation, Normal air movement Cardiovascular: Normal S1, Normal S2, Other (Atrial fibrillation with controlled rate) Abdomen: Normal bowel sounds, Soft Musculoskeletal: Normal sensory function, Normal motor function Extremities: Other (Swelling to bilateral upper extremities) Skin: Dry, Intact Psych/Mental Status: Mood NL (Anxious) Medications Current Medications Medications Dose Ordered Sig/Ben Route Start Time Stop Time Status Last Admin Dose Admin Albuterol 2.5 mg Q4HPRN PRN NEB 06/07/24 23:15 06/10/24 18:33 2.5 MG Ipratropium [place] 0.5 mg Q4HPRN PRN NEB 06/07/24 23:15 06/10/24 18:33 0.5 MG Vancomycin HCl 0 ml @ 0 mls/hr UD IV 06/07/24 23:15 Acetaminophen/ Hydrocodone Bitart 1 tab Q4HP PRN PO 06/07/24 23:15 Ondansetron HCl 4 mg Q4HP PRN IV 06/07/24 23:15 Docusate Sodium 100 mg BIDPRN PRN PO 06/07/24 23:15 Acetaminophen 650 mg Q6HP PRN PO 06/07/24 23:15 Nitroglycerin 0.4 mg Q5MINP PRN SL 06/07/24 23:15 Morphine Sulfate 2 mg Q30M PRN IV 06/07/24 23:15 Midazolam HCl 50 ml @ 1 mls/hr Q24H IV 06/09/24 07:30 06/11/24 05:08 7 MLS/HR Enteral Nutritional Formula 1,000 ml 30ML/HR GT 06/09/24 09:45 06/11/24 06:06 1,000 ML Pantoprazole Sodium 40 mg DAILY IV 06/09/24 10:00 06/14/24 07:58 40 MG Piperacillin Sod/ Tazobactam Sod 100 ml @ 25 mls/hr Q8HR IV 06/09/24 22:00 06/14/24 12:32 25 MLS/HR Amiodarone HCl 200 mg Q12HR GT 06/12/24 10:00 06/13/24 21:32 200 MG Dexmedetomidine HCl 400 mcg/ Dextrose 100 ml @ 2.19 mls/hr Q24H IV 06/12/24 08:45 Methylprednisolone Sodium Succinate 40 mg DAILY IV 06/12/24 10:00 06/14/24 07:58 40 MG Norepinephrine Bitartrate 16 mg/ Sodium Chloride 250 ml @ 0.938 mls/ hr Q24H IV 06/13/24 08:30 06/13/24 21:44 0.938 MLS/HR Furosemide 20 mg DAILY IV 06/14/24 10:00 06/14/24 07:59 20 MG Enoxaparin Sodium 30 mg DAILY SC 06/15/24 10:00 Laboratory Results Laboratory Tests 06/14/24 03:10 Chemistry Test 06/13/24 15:56 06/14/24 03:10 Albumin 2.4 g/dL (3.2-4.8) L Calcium Level 8.7 mg/dL (8.7-10.4) 9.2 mg/dL (8.7-10.4) Magnesium Level 1.9 mg/dL (1.6-2.6) 2.1 mg/dL (1.6-2.6) Total Protein 4.7 g/dL (5.7-8.2) L LFT Test 06/13/24 15:56 Alanine Aminotransferase (ALT) 20 U/L (7-40) Alkaline Phosphatase 85 U/L (46-116) Aspartate Amino Transferase (AST) 29 U/L (13-40) Total Bilirubin 0.3 mg/dL (0.2-1.0) Urinalysis Test 06/08/24 03:50 Urine Color Straw (Yellow) Urine Clarity Clear (Clear) Urine pH 5.5 (5.0-9.0) Urine Specific [place] 1.005 (1.001-1.035) Urine Protein Negative (Negative) Urine Ketones Negative (Negative) Urine Blood 2+ /uL (Negative) H Urine Nitrite Negative (Negative) Urine Bilirubin Negative (Negative) Urine Urobilinogen Normal mg/dL (Negative) Urine Leukocyte Esterase Negative /uL (Negative) Urine RBC 1 /hpf (0 - 4) Urine WBC 3 /hpf (0 - 5) Urine Squamous Epithelial Cells Few /hpf (<5) Urine Bacteria Few /hpf (None Seen) H Urine Hyaline Casts Few /lpf (0 - 2) Urine Mucus Few (None Seen) Urine Yeast (Budding) Occasional /hpf (None Urine Glucose Normal mg/dL (Normal) Microbiology Microbiology Date/Time Source Procedure Growth Status 06/12/24 10:30 Nose MRSA Screen - Final Complete 06/09/24 07:45 Sputum Gram Stain - Final Complete 06/09/24 07:45 Sputum Respiratory Culture - Final Complete 06/08/24 03:50 Voided Urine Urine Culture - Final Complete 06/07/24 20:55 Blood Blood Culture - Final NO GROWTH AFTER 5 DAYS OF INCUBATION. Complete Assessment/Plan Assessment/Plan pneumonia with respiratory failure s/p extubation yesterday- currently on o2 at 2-3l/min dvt prophylaxis gi prophylaxis dementia failed swallowing evaluation- family to make decision dni status Plan discussed with: Daughter, Other Date of Service: Jun 14, 2024 Billing Provider: MARISELA WILLS MD Common Visit Codes: [id number] CARE 30-74 MIN MARISELA WILLS MD Jun 14, 2024 15:42
[2024-06-14] MEDS ORDERED: PPN PER PHARMACY 0 ML IV SCH (15:45)
[2024-06-14] MEDS ORDERED: DEXTROSE (50%) 50ML SYRG IV SCH (16:00)
[2024-06-14] MEDS: InsuLIN REG 1unit/0.01ml Soln (100units/ml) SC SCH (17:02)
[2024-06-14] MEDS: ACCU-CHEK COMFORT CURVE STRIP VI SCH (17:02)
--- NOTE | 2024-06-14 21:46 | DVHPN2 ---
Progress Note - Dictate Date Seen: Jun 14, 2024 Medical Necessity Reason Pt with a Central, PICC or Fol: Yes The following are medically ne: Ribeiro Catheter Reason for ribeiro catheter: Strict I&O Subjective Patient seen and examined at bedside. on supplemental oxygen Overnight events reviewed. vital signs Vital Sign Date Time Temp Pulse Resp B/P (MAP) Pulse Ox O2 Delivery O2 Flow Rate FiO2 06/14/24 19:00 97.9 68 16 103/61 (75) 97 208.2 06/14/24 18:00 Nasal Cannula* 3 N/A Cool Aerosol Total Intake and Output 06/13/24 06/13/24 06/14/24 15:00 23:00 07:00 Intake Total 167.815 ml 192.288 ml 131.566 ml Output Total 1101 ml 850 ml Balance 167.815 ml -908.712 ml -718.434 ml medications Current Medications Medications Dose Ordered Sig/Ben Route Start Time Stop Time Status Last Admin Dose Admin Albuterol 2.5 mg Q4HPRN PRN NEB 06/07/24 23:15 06/10/24 18:33 2.5 MG Ipratropium [place] 0.5 mg Q4HPRN PRN NEB 06/07/24 23:15 06/10/24 18:33 0.5 MG Vancomycin HCl 0 ml @ 0 mls/hr UD IV 06/07/24 23:15 Acetaminophen/ Hydrocodone Bitart 1 tab Q4HP PRN PO 06/07/24 23:15 Docusate Sodium 100 mg BIDPRN PRN PO 06/07/24 23:15 Acetaminophen 650 mg Q6HP PRN PO 06/07/24 23:15 Pantoprazole Sodium 40 mg DAILY IV 06/09/24 10:00 06/14/24 07:58 40 MG Piperacillin Sod/ Tazobactam Sod 100 ml @ 25 mls/hr Q8HR IV 06/09/24 22:00 06/14/24 12:32 25 MLS/HR Amiodarone HCl 200 mg Q12HR GT 06/12/24 10:00 06/13/24 21:32 200 MG Methylprednisolone Sodium Succinate 40 mg DAILY IV 06/12/24 10:00 06/14/24 07:58 40 MG Enoxaparin Sodium 30 mg DAILY SC 06/15/24 10:00 Amino Acids 0 ml @ 0 mls/hr PER PHARMACY IV 06/14/24 15:45 Diagnostic Test (Pha) 1 strip Q6HR 06/14/24 18:00 06/14/24 17:02 1 STRIP Insulin Human Regular FOLLOW SLIDING SCALE Q6HR SC 06/14/24 18:00 Dextrose 50 ml UD IV 06/14/24 16:00 objective Gen.: Patient lying in bed in no apparent distress. On supplemental oxygen. Head: Normocephalic, atraumatic. Eyes: EOMI/PERRLA. Ears: Normal hearing. Normal anatomy. Neck/trachea: Trachea midline, supple. Nose: Normal external anatomy. Mouth: Moist mucous membranes. Chest: Decreased air entry bilaterally. No wheezing or rhonchi. Cardiovascular: Positive S1, positive S2. Regular rate and rhythm. Abdomen: Positive bowel sounds in all 4 quadrants. Soft, non-tender, non- distended. : Deferred. Rectal: Deferred. Skin: Warm, dry. Intact. Extremities: 2+ radial pulses bilaterally. No lower extremity edema. Neuro: Awake, alert, oriented x3. No gross motor or sensory deficits. Cranial nerves II through XII intact. Gait not assessed. 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 Labs and imaging reviewed. Rest of plan as noted below. Plan: S/p extubation Supplemental oxygen Titrate to keep O2 sats above 90%. Head of bed elevation Aspiration precautions IV steroids - tapered Complete antibiotics Monitor renal function Monitor electrolytes. Supplement as necessary. Monitor ins and outs. DVT prophylaxis with Lovenox GI prophylaxis with Pepcid Condition: Critical Prognosis: Poor given multiple comorbidities. Rest of plan per hospitalist and other consultants. A total of 35 minutes of critical care time was spent reviewing the patient record, examining the patient, making a diagnostic and therapeutic plan, discussing this plan with the medical personnel, following up on diagnostic studies and following the patient for clinical stability excluding any and all procedures. At least 50% of this time was spent in direct, [id number] contact. Thank you ANN Rocha for allowing me to participate in this patient's care. Further recommendations will depend on patient's clinical course. Please do not hesitate to contact me if you have any questions or concerns. This medical document was created using an electronic medical record system with [email or web address] dictation system. Although this document has been carefully reviewed, there may still be some phonetic and typographical errors. These areas are purely typographical due to imperfections of the software programs, and do not reflect any compromise in the patient's medical care. Dietary Evaluation Review Comments: Jevvity 30ml/hr providing 40 g pro 864 kcal, supporting 93% of patients' needs for protein and 80% for energy. Reassess after pt is off vent. Expected Outcomes/Goals: meeting 75% of pt's energy needs Plan discussed with: Other (GIO Perez MD) Critical Care Time(min): 35 CHAU COHEN MD Jun 14, 2024 21:46
[2024-06-14] MEDS: AMINO ACID INFUSION IN D5W 1,000 ML IV ONE (22:34)
[2024-06-15] VITALS (11 sets, daily range): BP systolic 104–121; BP diastolic 57–77; PULSE 60–87; RESP 14–20; TEMP 96.3–97.8; O2SAT 92–98
[2024-06-15 05:44] LABS: Basophils # (auto) 0 10 ^3/uL (0-0.2); Basophils % (auto) 0.2 % (0.0-2.0); Eosinophils # (auto) 0 10 ^3/uL (0-0.8); Eosinophils % (auto) 0.1 % (0.0-7.0); Hematocrit 27.3 % (36.0-46.0); Hemoglobin 8.7 g/dL (12.2-16.2); Lymphocytes # (auto) 0.8 10 ^3/uL (0.4-5.4); Mean Corpuscular Hemoglobin 28.2 pg (28.0-32.0); Mean Corpuscular Hgb Conc. 31.9 g/dL (32.0-36.0); Mean Corpuscular Volume 88.3 fL (80.0-100.0); Monocytes # (auto) 0.4 10 ^3/uL (0-1.3); Monocytes % (auto) 3.1 % (0.0-12.0); Neutrophils # (auto) 12.8 10 ^3/uL (1.6-8.6); Neutrophils % (auto) 90.6 % (37.0-80.0); Nucleated Red Blood Cells % 0.1 %; Platelet Count (auto) 246 10^3/uL (140-450); Red Blood Cells 3.09 10^6/uL (4.0-5.20); Red Cell Distribution Width 17.9 % (11.8-14.3); White Blood Cell 14.1 10^3/uL (4.4-10.8)
--- NOTE | 2024-06-15 06:00 | DVH ---
CHEST RADIOGRAPH Indication: pna Technique: Single frontal view of the chest was obtained Comparison: XY CHEST PORTABLE on DOS: 06/14/24, XY CHEST PORTABLE on DOS: 06/13/24, XY CHEST PORTABLE on DOS: 06/12/24 IMPRESSION: The heart appears enlarged. Right IJ catheter tip is unchanged in the region of the right atrium. The re is a moderate left pleural effusion with bilateral interstitial opacities, unchanged. No pneumotho rax.
[2024-06-15 06:13] LABS: Phosphorus 4.1 mg/dL (2.4-5.1)
[2024-06-15] MEDS: ENOXAPARIN SOD 30 MG/0.3 ML SYRINGE SC SCH (10:23)
[2024-06-15 13:27] LABS: Alanine Aminotransferase 22 U/L (7-40); Alkaline Phosphatase 77 U/L (46-116); Anion Gap 8 (5-15); Aspartate Aminotransferase 23 U/L (13-40); BUN/Creatinine Ratio 26.3 (10.0-20.0); Bilirubin, Total 0.3 mg/dL (0.2-1.0)
[2024-06-15 13:47] LABS: Albumin 2.3 g/dL (3.2-4.8); Blood Urea Nitrogen 30 mg/dL (9-23); Calcium 8.6 mg/dL (8.7-10.4); Carbon Dioxide 26 mmol/L (20-31); Chloride 110 mmol/L (98-107); Glucose 114 mg/dL (74-106); Potassium 3.2 mmol/L (3.5-5.1); Sodium 144 mmol/L (136-145); Total Protein 4.5 g/dL (5.7-8.2)
[2024-06-15] MEDS ORDERED: PPN PER PHARMACY 0 ML IV SCH (14:45)
--- NOTE | 2024-06-15 15:32 | DVHPN2 ---
Subjective more awake at times/denied any pain/ Reviewed: Care Plan, H&P, Labs, Medications Changes from previous H/P or p: No Changes General: Per HPI Eyes: No Pain, No Vision change, No Conjunctivae inflammation, No Eyelid inflammation, No Other, No Redness ENT: No Ear pain, No Ear discharge, No Nose pain, No Nose discharge, No Nose congestion, No Mouth pain, No Mouth swelling, No Throat pain, No Throat swelling, No Other Cardiovascular: No Chest Pain, No Palpitations, No Orthopnea, No Paroxysmal Noc. Dyspnea, No Edema, No Lt Headedness, No Other Respiratory: Cough; No Dry; Shortness of breath, SOB with excertion; No Wheezing, No Hemoptysis, No Pleuritic Pain, No Sputum; Other (SOB at rest) Gastrointestinal: No Nausea, No Vomiting, No Abdominal Pain, No Diarrhea, No Constipation, No Melena, No Hematochezia, No Other Genitourinary: No Dysuria, No Frequency, No Incontinence, No Hematuria, No Retention, No Other Musculoskeletal: No other, No neck pain, No shoulder pain, No arm pain, No back pain, No hand pain, No leg pain, No foot pain Skin: No Rash, No Lesions, No Jaundice, No Bruising, No Other Objective Vitals Vital Signs Date Time Temp Pulse Resp B/P (MAP) Pulse Ox O2 Delivery O2 Flow Rate FiO2 06/15/24 13:00 96.3 60 16 113/65 (81) 93 96.3 06/15/24 08:20 Nasal Cannula* 3 32 Intake/Output Intake and Output 06/15/24 07:00 Intake Total 150 ml Output Total 1400 ml Balance -1250 ml Intake Oral 0 ml IV Total 150 ml Output Urine Total 1400 ml # Bowel Movements 1 General Appearance: No acute distress, Other (Extubated, sedated) HEENT: Atraumatic, PERRLA Lungs: Clear to auscultation, Normal air movement Cardiovascular: Normal S1, Normal S2, Other (Atrial fibrillation with controlled rate) Abdomen: Normal bowel sounds, Soft Extremities: Other (Swelling to bilateral upper extremities) Skin: Dry, Intact Psych/Mental Status: Mood NL (Anxious), Other (wakes up and smiles to questions/denies any pain) Medications Current Medications Medications Dose Ordered Sig/Ben Route Start Time Stop Time Status Last Admin Dose Admin Albuterol 2.5 mg Q4HPRN PRN NEB 06/07/24 23:15 06/10/24 18:33 2.5 MG Ipratropium [place] 0.5 mg Q4HPRN PRN NEB 06/07/24 23:15 06/10/24 18:33 0.5 MG Vancomycin HCl 0 ml @ 0 mls/hr UD IV 06/07/24 23:15 Acetaminophen/ Hydrocodone Bitart 1 tab Q4HP PRN PO 06/07/24 23:15 Docusate Sodium 100 mg BIDPRN PRN PO 06/07/24 23:15 Acetaminophen 650 mg Q6HP PRN PO 06/07/24 23:15 Pantoprazole Sodium 40 mg DAILY IV 06/09/24 10:00 06/15/24 10:23 40 MG Piperacillin Sod/ Tazobactam Sod 100 ml @ 25 mls/hr Q8HR IV 06/09/24 22:00 06/15/24 15:23 25 MLS/HR Amiodarone HCl 200 mg Q12HR GT 06/12/24 10:00 06/13/24 21:32 200 MG Methylprednisolone Sodium Succinate 40 mg DAILY IV 06/12/24 10:00 06/15/24 10:23 40 MG Enoxaparin Sodium 30 mg DAILY SC 06/15/24 10:00 06/15/24 10:23 30 MG Amino Acids 0 ml @ 0 mls/hr PER PHARMACY IV 06/14/24 15:45 Diagnostic Test (Pha) 1 strip Q6HR 06/14/24 18:00 06/15/24 12:00 1 STRIP Insulin Human Regular FOLLOW SLIDING SCALE Q6HR SC 06/14/24 18:00 Dextrose 50 ml UD IV 06/14/24 16:00 Fat Emulsion Intravenous 50 ml/ Potassium Acetate 40 meq/Magnesium Sulfate 4 meq/ Multivitamins 10 ml/Chromium/ Copper/Manganese/ Zinc 1 ml/Amino Acids/Dextrose/ Purified Water 1,282 ml @ 53 mls/hr [id number] IV 06/15/24 22:00 06/16/24 21:59 Amino Acids 0 ml @ 0 mls/hr PER PHARMACY IV 06/15/24 14:45 UNV Laboratory Results Laboratory Tests 06/15/24 04:43 Chemistry Test 06/14/24 17:00 06/15/24 04:43 Phosphorus Level 4.6 mg/dL (2.4-5.1) 4.1 mg/dL (2.4-5.1) Albumin 2.3 g/dL (3.2-4.8) L Calcium Level 8.6 mg/dL (8.7-10.4) L Magnesium Level 2.0 mg/dL (1.6-2.6) Total Protein 4.5 g/dL (5.7-8.2) L Lipid panel Test 06/15/24 04:43 Triglycerides Level 96 mg/dL (< 150) LFT Test 06/15/24 04:43 Alanine Aminotransferase (ALT) 22 U/L (7-40) Alkaline Phosphatase 77 U/L (46-116) Aspartate Amino Transferase (AST) 23 U/L (13-40) Total Bilirubin 0.3 mg/dL (0.2-1.0) Urinalysis Test 06/08/24 03:50 Urine Color Straw (Yellow) Urine Clarity Clear (Clear) Urine pH 5.5 (5.0-9.0) Urine Specific [place] 1.005 (1.001-1.035) Urine Protein Negative (Negative) Urine Ketones Negative (Negative) Urine Blood 2+ /uL (Negative) H Urine Nitrite Negative (Negative) Urine Bilirubin Negative (Negative) Urine Urobilinogen Normal mg/dL (Negative) Urine Leukocyte Esterase Negative /uL (Negative) Urine RBC 1 /hpf (0 - 4) Urine WBC 3 /hpf (0 - 5) Urine Squamous Epithelial Cells Few /hpf (<5) Urine Bacteria Few /hpf (None Seen) H Urine Hyaline Casts Few /lpf (0 - 2) Urine Mucus Few (None Seen) Urine Yeast (Budding) Occasional /hpf (None Urine Glucose Normal mg/dL (Normal) Microbiology Microbiology Date/Time Source Procedure Growth Status 06/12/24 10:30 Nose MRSA Screen - Final Complete 06/09/24 07:45 Sputum Gram Stain - Final Complete 06/09/24 07:45 Sputum Respiratory Culture - Final Complete 06/08/24 03:50 Voided Urine Urine Culture - Final Complete 06/07/24 20:55 Blood Blood Culture - Final NO GROWTH AFTER 5 DAYS OF INCUBATION. Complete Labs and/or images reviewed: Labs reviewed by me, Image(s) reviewed by me Assessment/Plan Assessment/Plan pneumonia with respiratory failure s/p extubation yesterday- currently on o2 at 2-3l/min/daughter requesting hospiceconsult and also to talk to social services designee dvt prophylaxis gi prophylaxis dementia failed swallowing evaluation- family to make decision/family has decided on hospice for now/will start pureed and see if pt can swallow/high risk for ga for peg placement at this time dni status Plan discussed with: Daughter My Orders Orders - MARISELA WILLS MD Procedure Category Date Status Time Transfer Orders XFER 06/14/24 Transmitted 15:33 Ppn Per Pharmacy [facility] 06/14/24 In Process 15:36 Ppn Per Pharmacy [facility] 06/14/24 In Process 15:45 Glucose Blood PHA 06/14/24 In Process (Accu-Chek Comfort 18:00 Insulin R (Human) PHA 06/14/24 In Process (Insulin R) 18:00 Dextrose 50% Syringe PHA 06/14/24 In Process 16:00 Ppn Per Pharmacy [facility] 06/14/24 In Process 22:00 Amino Acid Infusion PHA 06/14/24 In Process In D5w ([facility] 4.2 22:00 Amino Acid PHA 06/15/24 In Process Infusion... W/Fat 22:00 Potassium Chl PHA 06/15/24 Logged 20meq/100ml 14:15 Comprehensive LAB 06/16/24 Verified Metabolic Panel 04:00 Magnesium LAB 06/16/24 Verified 04:00 Phosphorus LAB 06/16/24 Verified 04:00 Ppn Per Pharmacy [facility] 06/15/24 In Process 22:00 Ppn Per Pharmacy [facility] 06/15/24 Logged 14:45 * Web Developer Programmer CONS 06/15/24 Transmitted Consult Refer To Hospice [facility] 06/15/24 In Process 14:45 Date of Service: Jun 15, 2024 Billing Provider: MARISELA WILLS MD Common Visit Codes: [id number] INP/OBS CARE(MOD) MARISELA WILLS MD Jun 15, 2024 15:32
[2024-06-15] MEDS: POTASSIUM CHL 20MEQ/100ML 100 ML IV ONE (17:40)
[2024-06-15] MEDS: VANCOMYCIN 500mg/100mL 100 ML IV ONE (21:42)
[2024-06-15] MEDS: PPN PER PHARMACY IV NR (21:50)
[2024-06-16] VITALS (10 sets, daily range): BP systolic 91–136; BP diastolic 64–78; PULSE 67–105; RESP 16–21; TEMP 97.5–98.2; O2SAT 90–96
[2024-06-16 07:47] LABS: Alanine Aminotransferase 23 U/L (7-40); Alkaline Phosphatase 82 U/L (46-116); Anion Gap 9 (5-15); BUN/Creatinine Ratio 34.9 (10.0-20.0); Calcium 8.7 mg/dL (8.7-10.4); Carbon Dioxide 24 mmol/L (20-31); Chloride 107 mmol/L (98-107); Magnesium 1.8 mg/dL (1.6-2.6); Sodium 140 mmol/L (136-145)
[2024-06-16 07:48] LABS: Aspartate Aminotransferase 23 U/L (13-40)
[2024-06-16 07:49] LABS: Bilirubin, Total 0.3 mg/dL (0.2-1.0)
[2024-06-16 07:53] LABS: Albumin 2.5 g/dL (3.2-4.8); Blood Urea Nitrogen 30 mg/dL (9-23); Glucose 149 mg/dL (74-106); Phosphorus 2.2 mg/dL (2.4-5.1); Potassium 3.2 mmol/L (3.5-5.1); Total Protein 4.9 g/dL (5.7-8.2)
[2024-06-16] MEDS ORDERED: POTASSIUM PHOSPHATE 26.4 MEQ in SODIUM CHL 0.9% 100 ML IV ONE (11:30)
[2024-06-16] MEDS: POTASSIUM CHL 20MEQ/100ML 100 ML IV SCH (18:44)
--- NOTE | 2024-06-16 19:00 | DVHPN2 ---
Subjective Patient nonverbal. Reviewed: Care Plan, H&P, Labs, Medications Changes from previous H/P or p: No Changes General: Per HPI Eyes: No Pain, No Vision change, No Conjunctivae inflammation, No Eyelid inflammation, No Other, No Redness ENT: No Ear pain, No Ear discharge, No Nose pain, No Nose discharge, No Nose congestion, No Mouth pain, No Mouth swelling, No Throat pain, No Throat swelling, No Other Cardiovascular: No Chest Pain, No Palpitations, No Orthopnea, No Paroxysmal Noc. Dyspnea, No Edema, No Lt Headedness, No Other Respiratory: Cough; No Dry; Shortness of breath, SOB with excertion; No Wheezing, No Hemoptysis, No Pleuritic Pain, No Sputum; Other (SOB at rest) Gastrointestinal: No Nausea, No Vomiting, No Abdominal Pain, No Diarrhea, No Constipation, No Melena, No Hematochezia, No Other Genitourinary: No Dysuria, No Frequency, No Incontinence, No Hematuria, No Retention, No Other Musculoskeletal: No other, No neck pain, No shoulder pain, No arm pain, No back pain, No hand pain, No leg pain, No foot pain Skin: No Rash, No Lesions, No Jaundice, No Bruising, No Other Objective Vitals Vital Signs Date Time Temp Pulse Resp B/P (MAP) Pulse Ox O2 Delivery O2 Flow Rate FiO2 06/16/24 17:00 97.5 99 16 91/64 (73) 93 97.5 06/16/24 08:10 Nasal Cannula* 3 32 Intake/Output Intake and Output 06/16/24 07:00 Intake Total 1300 ml Output Total 775 ml Balance 525 ml Intake Oral 0 ml IV Total 1300 ml Output Urine Total 775 ml # Bowel Movements 3 General Appearance: No acute distress, Other (Extubated, sedated) HEENT: Atraumatic, PERRLA Lungs: Clear to auscultation, Normal air movement Cardiovascular: Normal S1, Normal S2, Other (Atrial fibrillation with controlled rate) Abdomen: Normal bowel sounds, Soft Extremities: Other (Swelling to bilateral upper extremities) Skin: Dry, Intact Psych/Mental Status: Mood NL (Anxious), Other (wakes up and smiles to questions/denies any pain) Medications Current Medications Medications Dose Ordered Sig/Ben Route Start Time Stop Time Status Last Admin Dose Admin Albuterol 2.5 mg Q4HPRN PRN NEB 06/07/24 23:15 06/10/24 18:33 2.5 MG Ipratropium Media 0.5 mg Q4HPRN PRN NEB 06/07/24 23:15 06/10/24 18:33 0.5 MG Vancomycin HCl 0 ml @ 0 mls/hr UD IV 06/07/24 23:15 Acetaminophen/ Hydrocodone Bitart 1 tab Q4HP PRN PO 06/07/24 23:15 Docusate Sodium 100 mg BIDPRN PRN PO 06/07/24 23:15 Acetaminophen 650 mg Q6HP PRN PO 06/07/24 23:15 Pantoprazole Sodium 40 mg DAILY IV 06/09/24 10:00 06/16/24 14:34 40 MG Piperacillin Sod/ Tazobactam Sod 100 ml @ 25 mls/hr Q8HR IV 06/09/24 22:00 06/16/24 15:59 25 MLS/HR Amiodarone HCl 200 mg Q12HR GT 06/12/24 10:00 06/13/24 21:32 200 MG Methylprednisolone Sodium Succinate 40 mg DAILY IV 06/12/24 10:00 06/16/24 14:33 40 MG Enoxaparin Sodium 30 mg DAILY SC 06/15/24 10:00 06/16/24 14:35 30 MG Amino Acids 0 ml @ 0 mls/hr PER PHARMACY IV 06/14/24 15:45 Diagnostic Test (Pha) 1 strip Q6HR 06/14/24 18:00 06/16/24 18:00 1 STRIP Insulin Human Regular FOLLOW SLIDING SCALE Q6HR SC 06/14/24 18:00 06/16/24 18:47 4 UNITS Dextrose 50 ml UD IV 06/14/24 16:00 Fat Emulsion Intravenous 50 ml/ Potassium Acetate 40 meq/Magnesium Sulfate 4 meq/ Multivitamins 10 ml/Chromium/ Copper/Manganese/ Zinc 1 ml/Amino Acids/Dextrose/ Purified Water 1,282 ml @ 53 mls/hr [id number] IV 06/15/24 22:00 06/16/24 21:59 06/15/24 21:50 53 MLS/HR Amino Acids 0 ml @ 0 mls/hr PER PHARMACY IV 06/15/24 14:45 UNV Fat Emulsion Intravenous 100 ml/Sodium Phosphate 60 meq/ Potassium Acetate 20 meq/Potassium Phosphate 22 meq/ Magnesium Sulfate 12 meq/ Multivitamins 10 ml/Chromium/ Copper/Manganese/ Zinc 1 ml/Amino Acids/Dextrose/ Purified Water 1,394 ml @ 58 mls/hr Q24H3M IV 06/16/24 22:00 06/17/24 21:59 Laboratory Results Laboratory Tests 06/15/24 04:43 06/16/24 06:38 Chemistry Test 06/16/24 06:38 Albumin 2.5 g/dL (3.2-4.8) L Calcium Level 8.7 mg/dL (8.7-10.4) Magnesium Level 1.8 mg/dL (1.6-2.6) Phosphorus Level 2.2 mg/dL (2.4-5.1) L Total Protein 4.9 g/dL (5.7-8.2) L LFT Test 06/16/24 06:38 Alanine Aminotransferase (ALT) 23 U/L (7-40) Alkaline Phosphatase 82 U/L (46-116) Aspartate Amino Transferase (AST) 23 U/L (13-40) Total Bilirubin 0.3 mg/dL (0.2-1.0) Urinalysis Test 06/08/24 03:50 Urine Color Straw (Yellow) Urine Clarity Clear (Clear) Urine pH 5.5 (5.0-9.0) Urine Specific [place] 1.005 (1.001-1.035) Urine Protein Negative (Negative) Urine Ketones Negative (Negative) Urine Blood 2+ /uL (Negative) H Urine Nitrite Negative (Negative) Urine Bilirubin Negative (Negative) Urine Urobilinogen Normal mg/dL (Negative) Urine Leukocyte Esterase Negative /uL (Negative) Urine RBC 1 /hpf (0 - 4) Urine WBC 3 /hpf (0 - 5) Urine Squamous Epithelial Cells Few /hpf (<5) Urine Bacteria Few /hpf (None Seen) H Urine Hyaline Casts Few /lpf (0 - 2) Urine Mucus Few (None Seen) Urine Yeast (Budding) Occasional /hpf (None Urine Glucose Normal mg/dL (Normal) Microbiology Microbiology Date/Time Source Procedure Growth Status 06/12/24 10:30 Nose MRSA Screen - Final Complete 06/09/24 07:45 Sputum Gram Stain - Final Complete 06/09/24 07:45 Sputum Respiratory Culture - Final Complete 06/08/24 03:50 Voided Urine Urine Culture - Final Complete 06/07/24 20:55 Blood Blood Culture - Final NO GROWTH AFTER 5 DAYS OF INCUBATION. 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 Plans for DC tomorrow once all arrangements have been established -continue TPN -antibiotic therapy: Zosyn, vancomycin -bronchodilators -PUD, DVT prophylaxis -oneal cultures : No growth DC planning in a.m. Total time spent with patient discussing and formulating plan of care: 35 minutes. This medical document was created using an electronic medical record system with [employer] dictation system. Although this document has been carefully reviewed, there may still be some phonetic and typographical errors. These areas are purely typographical due to imperfections of the software programs, and do not reflect any compromise in the patient's medical care. Plan discussed with: Patient, Daughter, Other (RN) Date of Service: Jun 16, 2024 Billing Provider: ED BRADLEY NP Common Visit Codes: [id number] INP/OBS CARE(HIGH) ED BRADLEY NP Jun 16, 2024 19:00
[2024-06-16] MEDS: DIGOXIN (250MCG/ML) 2 ML AMPULE IV ONE (21:19)
[2024-06-16] MEDS: PPN PER PHARMACY IV NR (21:24)
[2024-06-16] MEDS: POTASSIUM CHL 20MEQ/100ML 100 ML IV ONE (21:30)
--- NOTE | 2024-06-16 22:58 | DVHPN2 ---
Progress Note - Dictate Date Seen: Jun 16, 2024 Medical Necessity Reason Pt with a Central, PICC or Fol: Yes The following are medically ne: Ribeiro Catheter Reason for ribeiro catheter: Strict I&O Subjective Patient seen and examined at bedside. Remains on supplemental oxygen Overnight events reviewed. vital signs Vital Sign Date Time Temp Pulse Resp B/P (MAP) Pulse Ox O2 Delivery O2 Flow Rate FiO2 06/16/24 21:19 120 06/16/24 20:05 16 91/69 96 3.0 32 06/16/24 17:00 97.5 97.5 06/16/24 08:10 Nasal Cannula* Total Intake and Output 06/15/24 06/15/24 06/16/24 15:00 23:00 07:00 Intake Total 1200 ml 100 ml Output Total 350 ml 425 ml Balance 850 ml -325 ml medications Current Medications Medications Dose Ordered Sig/Ben Route Start Time Stop Time Status Last Admin Dose Admin Albuterol 2.5 mg Q4HPRN PRN NEB 06/07/24 23:15 06/10/24 18:33 2.5 MG Ipratropium [place] 0.5 mg Q4HPRN PRN NEB 06/07/24 23:15 06/10/24 18:33 0.5 MG Vancomycin HCl 0 ml @ 0 mls/hr UD IV 06/07/24 23:15 Acetaminophen/ Hydrocodone Bitart 1 tab Q4HP PRN PO 06/07/24 23:15 Docusate Sodium 100 mg BIDPRN PRN PO 06/07/24 23:15 Acetaminophen 650 mg Q6HP PRN PO 06/07/24 23:15 Pantoprazole Sodium 40 mg DAILY IV 06/09/24 10:00 06/16/24 14:34 40 MG Piperacillin Sod/ Tazobactam Sod 100 ml @ 25 mls/hr Q8HR IV 06/09/24 22:00 06/16/24 21:32 25 MLS/HR Amiodarone HCl 200 mg Q12HR GT 06/12/24 10:00 06/13/24 21:32 200 MG Methylprednisolone Sodium Succinate 40 mg DAILY IV 06/12/24 10:00 06/16/24 14:33 40 MG Enoxaparin Sodium 30 mg DAILY SC 06/15/24 10:00 06/16/24 14:35 30 MG Amino Acids 0 ml @ 0 mls/hr PER PHARMACY IV 06/14/24 15:45 Diagnostic Test (Pha) 1 strip Q6HR 06/14/24 18:00 06/16/24 18:00 1 STRIP Insulin Human Regular FOLLOW SLIDING SCALE Q6HR SC 06/14/24 18:00 06/16/24 18:47 4 UNITS Dextrose 50 ml UD IV 06/14/24 16:00 Amino Acids 0 ml @ 0 mls/hr PER PHARMACY IV 06/15/24 14:45 UNV Fat Emulsion Intravenous 100 ml/Sodium Phosphate 60 meq/ Potassium Acetate 20 meq/Potassium Phosphate 22 meq/ Magnesium Sulfate 12 meq/ Multivitamins 10 ml/Chromium/ Copper/Manganese/ Zinc 1 ml/Amino Acids/Dextrose/ Purified Water 1,394 ml @ 58 mls/hr Q24H3M IV 06/16/24 22:00 06/17/24 21:59 06/16/24 21:24 58 MLS/HR objective Gen.: Patient lying in bed in no apparent distress. On supplemental oxygen. Head: Normocephalic, atraumatic. Eyes: EOMI/PERRLA. Ears: Normal hearing. Normal anatomy. Neck/trachea: Trachea midline, supple. Nose: Normal external anatomy. Mouth: Moist mucous membranes. Chest: Decreased air entry bilaterally. No wheezing or rhonchi. Cardiovascular: Positive S1, positive S2. Regular rate and rhythm. Abdomen: Positive bowel sounds in all 4 quadrants. Soft, non-tender, non- distended. : Deferred. Rectal: Deferred. Skin: Warm, dry. Intact. Extremities: 2+ radial pulses bilaterally. No lower extremity edema. Neuro: Awake, alert, oriented x3. No gross motor or sensory deficits. Cranial nerves II through XII intact. Gait not assessed. laboratory and microbiology Laboratory Tests 06/16/24 06:38 06/15/24 04:43 Test 06/16/24 06:38 Range/Units Serum Glucose 149 H 74-106 mg/dL Assessment/Plan Impression: Acute hypoxic respiratory failure secondary to pneumonia On mechanical ventilator Pneumonia likely Gram-negative Septic shock Pleural effusion Atelectasis Generalized weakness Anemia Lactic acidosis Metabolic acidosis Events: Remains on supplemental oxygen On 3 LPM NC Taper O2 as tolerated Continue antibiotics Incentive spirometry Head of bed elevation Aspiration precautions TPN for nutritional support Wound care. Plan for hospice discharge tomorrow. Labs and imaging reviewed. Rest of plan as noted below. Plan: S/p extubation on 06/14/24 Supplemental oxygen Titrate to keep O2 sats above 92%. Head of bed elevation Aspiration precautions IV steroids Continue antibiotics Follow up cultures. Off pressors, hemodynamically stable. DVT prophylaxis with Lovenox GI prophylaxis with Pepcid Prognosis: Poor given multiple comorbidities. Rest of plan per hospitalist and other consultants. Thank you ANN Rocha for allowing me to participate in this patient's care. Further recommendations will depend on patient's clinical course. Please do not hesitate to contact me if you have any questions or concerns. This medical document was created using an electronic medical record system with [employer] dictation system. Although this document has been carefully reviewed, there may still be some phonetic and typographical errors. These areas are purely typographical due to imperfections of the software programs, and do not reflect any compromise in the patient's medical care. Dietary Evaluation Review Comments: Jevvity 30ml/hr providing 40 g pro 864 kcal, supporting 93% of patients' needs for protein and 80% for energy. Reassess after pt is off vent. Expected Outcomes/Goals: meeting 75% of pt's energy needs Plan discussed with: Patient, Other (GIO Estrada) CHAU COHEN MD Jun 16, 2024 22:58
[2024-06-17] VITALS (7 sets, daily range): BP systolic 97–116; BP diastolic 65–72; PULSE 93–118; RESP 16–20; TEMP 97.4–97.8; O2SAT 90–98
--- NOTE | 2024-06-17 08:50 | DVHDS2 ---
Discharge Summary Date of Admission Jun 07, 2024 at 23:15 Date of Discharge: Jun 17, 2024 Admitting Diagnosis Sepsis Labs/Diagnostic Data: Laboratory Results Test 06/17/24 06:11 06/16/24 06:38 06/15/24 04:43 06/13/24 13:36 Random Vancomycin Level 12.9 ug/mL (5-10) Vancomycin Level Trough 19.2 ug/mL (5-10) White Blood Count 14.1 10^3/uL (4.4-10.8) Red Blood Count 3.09 10^6/uL (4.0-5.20) Hemoglobin 8.7 g/dL (12.2-16.2) Hematocrit 27.3 % (36.0-46.0) Mean Corpuscular Volume 88.3 fL (80.0-100.0) Mean Corpuscular Hemoglobin 28.2 pg (28.0-32.0) Mean Corpuscular Hemoglobin Concent 31.9 g/dL (32.0-36.0) Red Cell Distribution Width 17.9 % (11.8-14.3) Platelet Count 246 10^3/uL (140-450) Mean Platelet Volume 7.8 fL (6.9-10.8) Neutrophils (%) (Auto) 90.6 % (37.0-80.0) Lymphocytes (%) (Auto) 6.0 % (10.0-50.0) Monocytes (%) (Auto) 3.1 % (0.0-12.0) Eosinophils (%) (Auto) 0.1 % (0.0-7.0) Basophils (%) (Auto) 0.2 % (0.0-2.0) Neutrophils # (Auto) 12.8 10 ^3/uL (1.6-8.6) Lymphocytes # (Auto) 0.8 10 ^3/uL (0.4-5.4) Monocytes # (Auto) 0.4 10 ^3/uL (0-1.3) Eosinophils # (Auto) 0 10 ^3/uL (0-0.8) Basophils # (Auto) 0 10 ^3/uL (0-0.2) Nucleated Red Blood Cells 0.1 % Triglycerides Level 96 mg/dL (< 150) Blood Gas Specimen Type Arterial Blood Gas Sample Site Right radial Blood Gas Patient Temperature 37.0 Arterial Blood Date Drawn [id number] Arterial Blood pH 7.468 (7.350-7.450) Arterial Blood Partial Pressure CO2 30.8 mmHg (32.0-45.0) Arterial Blood Partial Pressure O2 98.0 mmHg (83.0-108.0) Arterial Blood HCO3 21.8 mmol/L (21.0-28.0) Arterial Blood Oxygen Saturation 97.1 % (94.0-98.0) Arterial Blood Base Excess -1.3 mmol/L (-2.0-3.0) Arterial Blood Oxyhemoglobin 96.5 % (94.0-98.0) Arterial Blood Carboxyhemoglobin 0.3 % (0.5-1.5) Arterial Blood Methemoglobin 0.3 % (0.0-1.5) Robbin Test Modified Blood Gas Total Hemoglobin 9.40 g/dL (12.0-16.0) Blood Gas Modality Vent - cpap Blood Gas Spontaneous Rate 24 FiO2 % 30.0 Blood Gas Tidal Volume 351.0 Blood Gas Pressure Support 12 Blood Gas PEEP or CPAP 5.0 Test 06/13/24 06:18 06/09/24 10:59 06/09/24 06:38 06/09/24 02:27 Blood Gas Set Respiration Rate 16.0 TB Test (QFT) Gold Plus Indeterminate (Negative) TB Test (QFT) Nil 0.00 IU/mL (.) TB Test (QFT) Mitogen 0.03 IU/mL (.) TB Test (QFT) Antigen 1 0.00 IU/mL (.) TB Test (QFT) Antigen 2 0.00 IU/mL (.) TB Test (QFT) Criteria Comment (.) Blood Gas Spontaneous Tidal Volume 375 Blood Gas EPAP 5 Blood Gas IPAP 12 Blood Gas Critical Value Read Back Yes Blood Gas Notified Whom shania Awad md Blood Gas Notified Time [id number] Blood Gas Notified By Promise artis rrt Influenza Type A Antigen Negative (Negative) Influenza Type B Antigen Negative (Negative) Test 06/08/24 12:56 06/08/24 06:27 06/08/24 03:50 06/07/24 23:36 Prothrombin Time 13.0 sec (9.3-11.8) Prothrombin Time INR 1.25 (0.9-1.15) Activated Partial Thromboplast Time 28.7 SEC (24.5-34.5) D-Dimer, Quantitative 13.33 mg/L FEU (0.0-0.49) Differential Total Cells Counted 100.0 (100) Neutrophils % (Manual) 85 (37.0-80.0) Band Neutrophils % (Manual) 2 Lymphocytes % (Manual) 12 (10.0-50.0) Monocytes % (Manual) 1 (0-12) Eosinophils % (Manual) 0 (0-7) Basophils % (Manual) 0 (0.0-2.0) Metamyelocytes % (manual) 0 Myelocytes % (Manual) 0 Promyelocytes % (Manual) 0 Blast Cells % (Manual) 0 Reactive Lymphocytes 0 Platelet Estimate Increased Urine Color Straw (Yellow) Urine Clarity Clear (Clear) Urine pH 5.5 (5.0-9.0) Urine Specific [place] 1.005 (1.001-1.035) Urine Protein Negative (Negative) Urine Ketones Negative (Negative) Urine Blood 2+ /uL (Negative) Urine Nitrite Negative (Negative) Urine Bilirubin Negative (Negative) Urine Urobilinogen Normal mg/dL (Negative) Urine Leukocyte Esterase Negative /uL (Negative) Urine RBC 1 /hpf (0 - 4) Urine WBC 3 /hpf (0 - 5) Urine Squamous Epithelial Cells Few /hpf (<5) Urine Bacteria Few /hpf (None Seen) Urine Hyaline Casts Few /lpf (0 - 2) Urine Mucus Few (None Seen) Urine Yeast (Budding) Occasional /hpf (None Urine Glucose Normal mg/dL (Normal) Hemoglobin A1c 5.4 % A1C (<5.7) Test 06/07/24 22:50 06/07/24 18:25 06/07/24 17:46 Lactic Acid Level 4.0 mmol/L (0.4-2.0) Troponin I High Sensitivity 16 ng/L (</=34) B-Type Natriuretic Peptide 263.34 pg/mL (0-100) SARS-CoV-2 Antigen (Rapid) Negative (NEGATIVE) Other Laboratory Tests 06/15/24 04:43 Brief Hx & Hospital Course: History of Present Illness The patient is a 89-year-old female with past medical history of dementia who presented to [facility] ED with complaint of shortness of breaths. As reported by daughter, patient's symptoms progressively get worse with cough, shortness of breaths at rest, on exertion, hypoxia, O2 saturation at 74% on room air, generalized weakness, getting worse that prompted this visit. Patient is being followed by neurologist and pulmonary at [place]. Patient was seen and evaluated in the ED, laboratory data shows WBC 14.4, hemoglobin 10.6, hematocrit 35.0, platelets 559, sodium 131, potassium 4.7, BUN 27, creatinine 0.93, GFR 59, glucose 182, hemoglobin A1c 5.4, troponin 10, lactic acid 6.0 trending down to 4.0, BNP 263.34, blood pressure 89/54 trending up to 107/64, heart rate 106, temperature 97.9 F, O2 saturation 91% on simple mask. Chest x-ray revealing diffuse interstitial and alveolar type opacities of bilateral lungs which may represent multifocal pneumonia possible small left sided pleural effusion and associated atelectasis. Patient was started on IV antibiotic regimen doxycycline, given breathing treatment, please see medication orders section in the computer. On my assessment, patient remains with, no diaphoresis, no diarrhea, no nausea, no vomiting, no fever, no chills. Patient was admitted for further evaluation and medical management. Course of hospitalization: Patient had worsening clinical status requiring mechanical ventilation despite the patient was family making the patient was chemical code. Patient was started on vasopressor therapy, empiric IV antibiotic therapy. CT angiogram of the chest ruled out pulmonary embolism, with further diagnosis of multifocal pneumonia. Pulmonology consultation was placed. Patient was successfully weaned off the ventilator, but not before clarification of the patient's code status including making the patient a DNI with CPR only. Patient was started on TPN after failing swallow evaluation. She has been off vasopressor therapy. Neurologically she was more alert, probably close to her baseline advanced dementia state. Discussion was made with the patient's family, who wished the patient to be discharged home on hospice. Patient will be discharged home today with the central line being removed, with the catheter to remain. Further treatment per hospice provider. Physical exam General: Alert and Oriented x3. No acute distress. Well-nourished. Eyes: EOMI. Anicteric. HENT: Moist mucous membranes. Lungs: Clear to auscultation bilaterally. No accessory muscle use. Cardiovascular: Regular rate and rhythm. No murmur. No JVD. Abdomen: Soft, non-tender and non-distended. No palpable masses. Extremities: No edema. Non-tender. Skin: No rashes or lesions. Warm. Neurologic: No focal neurological deficits. CN II-XII grossly intact, but not individually tested. Psychiatric: Cooperative. Appropriate mood and affect. Total time spent with patient discussing and formulating plan of care: 35 minutes. This medical document was created using an electronic medical record system with [employer] dictation system. Although this document has been carefully reviewed, there may still be some phonetic and typographical errors. These areas are purely typographical due to imperfections of the software programs, and do not reflect any compromise in the patient's medical care. 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 To be ordered by hospice provider Activity: No Restrictions, As Tolerated Follow Up/Referral: Per hospice provider Medications: Per hospice provider 36 Discharge Statement: "Patient was advised to return to the ER or call 911 if any headaches, dizziness, shortness of breath, chest pain, abdominal pain, bleeding, fevers, or worsening of medical condition. Patient was counseled about treatment plan, medications, possible side effects, patientverbalized understanding. All questions were answered to the best of my ability. This discharge took greater then 30 minutes in planning, reviewing documentation, counseling the patient, and discussing with other team members." ASSESSMENT ASSESSMENT Assessment Severe sepsis with shock Date of Service: Jun 17, 2024 Billing Provider: ED BRADLEY NP Common Visit Codes: 21510-BNC/OBS DISCH DAY >30min ED BRADLEY NP Jun 17, 2024 08:50
[2024-06-17 11:17] LABS: Alanine Aminotransferase 24 U/L (7-40); Alkaline Phosphatase 88 U/L (46-116); Anion Gap 12 (5-15); BUN/Creatinine Ratio 45.6 (10.0-20.0); Carbon Dioxide 21 mmol/L (20-31); Chloride 107 mmol/L (98-107); Magnesium 2.1 mg/dL (1.6-2.6); Potassium 4.5 mmol/L (3.5-5.1); Sodium 140 mmol/L (136-145)
[2024-06-17 11:18] LABS: Bilirubin, Total 0.4 mg/dL (0.2-1.0); Phosphorus 4.1 mg/dL (2.4-5.1)
[2024-06-17 11:29] LABS: Albumin 2.5 g/dL (3.2-4.8); Aspartate Aminotransferase 47 U/L (13-40); Blood Urea Nitrogen 31 mg/dL (9-23); Calcium 8.5 mg/dL (8.7-10.4); Glucose 114 mg/dL (74-106); Total Protein 4.9 g/dL (5.7-8.2)
--- NOTE | 2024-06-17 14:59 | ECG ---
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
--- NOTE | 2024-06-17 14:59 | ECG ---
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
[2024-06-17] MEDS ORDERED: PPN PER PHARMACY IV NR (22:00)
--- NOTE | 2024-06-17 23:17 | DVHPN2 ---
Progress Note - Dictate Date Seen: Jun 17, 2024 Medical Necessity Reason Pt with a Central, PICC or Fol: Yes The following are medically ne: Ribeiro Catheter Reason for ribeiro catheter: Strict I&O Subjective Patient seen and examined at bedside. Remains on supplemental oxygen Overnight events reviewed. vital signs Vital Sign Date Time Temp Pulse Resp B/P (MAP) Pulse Ox O2 Delivery O2 Flow Rate FiO2 06/17/24 17:00 97.7 93 17 110/71 (84) 97.7 06/17/24 13:00 90 06/17/24 08:28 Nasal Cannula 4.0 06/17/24 08:28 36 Total Intake and Output 06/16/24 06/16/24 06/17/24 15:00 23:00 07:00 Intake Total 400 ml Output Total 700 ml 600 ml Balance -300 ml -600 ml medications Current Medications Medications Dose Ordered Sig/Ben Route Start Time Stop Time Status Last Admin Dose Admin Amino Acids 0 ml @ 0 mls/hr PER PHARMACY IV 06/15/24 14:45 UNV objective Gen.: Patient lying in bed in no apparent distress. On supplemental oxygen. Head: Normocephalic, atraumatic. Eyes: EOMI/PERRLA. Ears: Normal hearing. Normal anatomy. Neck/trachea: Trachea midline, supple. Nose: Normal external anatomy. Mouth: Moist mucous membranes. Chest: Decreased air entry bilaterally. No wheezing or rhonchi. Cardiovascular: Positive S1, positive S2. Regular rate and rhythm. Abdomen: Positive bowel sounds in all 4 quadrants. Soft, non-tender, non- distended. : Deferred. Rectal: Deferred. Skin: Warm, dry. Intact. Extremities: 2+ radial pulses bilaterally. No lower extremity edema. Neuro: Awake, alert, oriented x3. No gross motor or sensory deficits. Cranial nerves II through XII intact. Gait not assessed. laboratory and microbiology Laboratory Tests 06/17/24 06:11 06/15/24 04:43 Test 06/17/24 06:11 Range/Units Serum Glucose 114 H 74-106 mg/dL Assessment/Plan Impression: Acute hypoxic respiratory failure secondary to pneumonia On mechanical ventilator Pneumonia likely Gram-negative Septic shock Pleural effusion Atelectasis Generalized weakness Anemia Lactic acidosis Metabolic acidosis Events: Remains on supplemental oxygen On 4 LPM NC Taper O2 as tolerated Continue antibiotics Continue bronchodilators Completed steroid course Incentive spirometry Head of bed elevation Aspiration precautions TPN for nutritional support Wound care. Patient is stable for discharge from the pulmonary standpoint. Disposition per hospitalist. Plan for hospice discharge. Labs and imaging reviewed. Rest of plan as noted below. Plan: S/p extubation on 06/14/24 Supplemental oxygen Titrate to keep O2 sats above 92%. Head of bed elevation Aspiration precautions IV steroids Continue antibiotics Follow up cultures. Off pressors, hemodynamically stable. DVT prophylaxis with Lovenox GI prophylaxis with Pepcid Prognosis: Poor given multiple comorbidities. Rest of plan per hospitalist and other consultants. Thank you ANN Rocha for allowing me to participate in this patient's care. Further recommendations will depend on patient's clinical course. Please do not hesitate to contact me if you have any questions or concerns. This medical document was created using an electronic medical record system with [employer] dictation system. Although this document has been carefully reviewed, there may still be some phonetic and typographical errors. These areas are purely typographical due to imperfections of the software programs, and do not reflect any compromise in the patient's medical care. Dietary Evaluation Review Comments: Jevvity 30ml/hr providing 40 g pro 864 kcal, supporting 93% of patients' needs for protein and 80% for energy. Reassess after pt is off vent. Expected Outcomes/Goals: meeting 75% of pt's energy needs Plan discussed with: Patient, Other (GIO Galvan) CHAU COHEN MD Jun 17, 2024 23:17
--- NOTE | 2024-06-18 07:00 | ECG ---
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
--- NOTE | 2024-06-18 15:05 | ECG ---
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
== END 2024-06-17 18:00 | disposition hospice, home (50) | DRG 870 ==
LOC: ER 16:51 → EDBD 16:51 → TELE 23:15 → ICU WEST 06-12 10:43 → TELE-CENTR 06-14 22:00
PROVIDERS: ADMIT Nurse Practitioner Acute Care; ATTEND Nurse Practitioner Acute Care
PROC: 5A09357 Assistance with Respiratory Ventilation, Less than 24 Consecutive Hours, Continuous Positive Airway Pressure (ICD-10-PCS; 2024-06-07)
PROC: 5A09357 Assistance with Respiratory Ventilation, Less than 24 Consecutive Hours, Continuous Positive Airway Pressure (ICD-10-PCS; 2024-06-08)
PROC: 5A0935A Assistance with Respiratory Ventilation, Less than 24 Consecutive Hours, High Flow/Velocity Cannula (ICD-10-PCS; 2024-06-08)
PROC: 0BH17EZ Insertion of Endotracheal Airway into Trachea, Via Natural or Artificial Opening (ICD-10-PCS; principal; 2024-06-09)
PROC: 5A1955Z Respiratory Ventilation, Greater than 96 Consecutive Hours (ICD-10-PCS; 2024-06-09)
PROC: 5A09357 Assistance with Respiratory Ventilation, Less than 24 Consecutive Hours, Continuous Positive Airway Pressure (ICD-10-PCS; 2024-06-09)
DX: A41.9 Sepsis, unspecified organism (principal); E43 Unspecified severe protein-calorie malnutrition; J18.9 Pneumonia, unspecified organism; J96.01 Acute respiratory failure with hypoxia; R65.21 Severe sepsis with septic shock; J90 Pleural effusion, not elsewhere classified; J98.11 Atelectasis; R64 Cachexia; E87.20 Acidosis, unspecified; Z68.1 Body mass index [BMI] 19.9 or less, adult; Z20.822 Contact with and (suspected) exposure to COVID-19; D64.9 Anemia, unspecified; F03.90 Unspecified dementia, unspecified severity, without behavioral disturbance, psychotic disturbance, mood disturbance, and anxiety; Z66 Do not resuscitate; I48.91 Unspecified atrial fibrillation; Z86.11 Personal history of tuberculosis; Z79.899 Other long term (current) drug therapy
CPT/HCPCS: 36415; 36600; 71045; 71275; 74018; 80048; 80053; 80202; 81001; 82565; 82805; 82962; 83036; 83605; 83735; 83880; 84100; 84132; 84478; 84484; 85007; 85025; 85027; 85379; 85610; 85730; 86850; 86900; 86901; 87040; 87070; 87081; 87086; 87205; 87426; 87804; 92507; 92610; 93005; 93306; 94003; 94640; 94660; 99291; G0378; J0692; J1815; J2470; J2543; J3480; J3490; J7060